=== PATIENT | female | born 1930 | race Caucasian/White ===

== ENCOUNTER → 2016-11-19 | Outpatient (CLI) | payer MEDICARE, OTHER ==
[~2016-11-19] MED LIST: ACET-2267 PO; ATEN50TA PO; BENA10TA2 PO; CITA10TA7 PO; DIPH25CA79 PO; DVL125C PO; FERR-74 PO; FURO40TA4 PO; HYDR-700 PO; IPRA3AMP NEB; LACT20SO2 PO; LEVO500T2 PO; LOPE-134 PO; MELA3TAB PO; MEMA10TA2 PO; MEMA5TAB PO; MULT-166 PO; POTA20TA15 PO; RISP0.2552 PO; RIVA1PAT3 TD; SIMV10TA3 PO; SODI30SP2 NS; TRAZ-28 PO; VIT1TABL26 PO; [UNRECOGNIZED DRUG - CODE] PO
== END ==
PROVIDERS: ATTEND Family Medicine
DX: R19.7 Diarrhea, unspecified (principal)
CPT/HCPCS: 87045; 87046; 87177; 87324; 87328; 87329; 87449; 89055

== ENCOUNTER → 2017-02-23 | Outpatient (CLI) | payer MEDICARE ==
[~2017-02-23] MED LIST changes: -FERR-74 PO; -LEVO500T2 PO; -MEMA10TA2 PO
--- NOTE | 2017-02-23 18:20 | Diagnostic Imaging Report ---
Upright AP and lateral views of the chest. INDICATION: Cough and shortness of breath. FINDINGS: The lungs are hyperinflated. There is interstitial thickening and bilateral effusions of small to moderate size, probably from interstitial pulmonary edema and CHF. The heart size is mildly enlarged. No pneumothorax. Mediastinum and anusha appear unremarkable. IMPRESSION: Findings suggestive of interstitial pulmonary edema with bilateral [id number]-hv-[id number] effusions. Dictated by: Dictated on workstation # [id number]
== END ==
LOC: RAD 15:03
PROVIDERS: ATTEND Family Medicine
DX: R91.8 Other nonspecific abnormal finding of lung field (principal); J90 Pleural effusion, not elsewhere classified
CPT/HCPCS: 71020

== ENCOUNTER 2017-02-25 00:31 | Inpatient (IN) | payer MEDICARE ==
[2017-02-25] VITALS (24 sets, daily range): BP systolic 80–128; BP diastolic 45–91
[~2017-02-25] VITALS: Ht 165.1 cm; Wt 69.4 kg
[2017-02-25] MEDS ORDERED: RT-ALBUTEROL/IPRATROPIUM 3 ML (DUONEB) VIAL ONE (00:33)
[2017-02-25] MEDS ORDERED: RT-ALBUTEROL/IPRATROPIUM 3 ML (DUONEB) VIAL INH ONE (00:45)
[2017-02-25] MEDS ORDERED: methylPREDNISolone 125 MG (Solu-MEDROL) VIAL IVP ONE (01:00)
[2017-02-25] MEDS ORDERED: FUROSEMIDE 40 MG/4 ML INJ (LASIX) IVP ONE (01:00)
--- NOTE | 2017-02-25 01:23 | ED Dyspnea ---
General Stated Complaint: PNEUMONIA Source of Information: Patient (PT IS LIMITED HISTORIAN--HX OF DEMENTIA), [facility] Records History of Present Illness Time Seen by Provider: 00:33 Initial Comments PT ARRIVES VIA EMS FROM [facility] PT HAS BEEN SHORT OF BREATH FOR UNKNOWN LENGTH OF TIME, BUT PT SEEMS TO THINK IT JUST STARTED TONIGHT PT HAS HAD COUGH FOR UNKNOWN LENGTH OF TIME PT DENIES CHEST PAIN PT IS UNAWARE IF SHE HAS HAD FEVER PT WITH SIGNIFICANT EDEMA OF LEGS AND ARMS, BUT DOES NOT KNOW HOW LONG THEY HAVE BEEN THIS WAY, OR IF IT IS NEW OR OLD EMS WAS CALLED BY [place] STAFF FOR O2 SATS IN 50'S, THEY PLACED PT ON O2 AT 3L/NC ( PT DOES NOT NORMALLY WEAR O2 ) O2 SAT WAS 96% WHEN EMS ARRIVED AT SCENE PT HAD OUTPATIENT CXR TODAY AND [place] STAFF STATES IT SHOWED PNEUMONIA AND PT WAS PRESCRIBED ZITHROMAX Z-PACK AND DUO NEB TREATMENTS, BUT RX'S WERE NOT PICKED UP AND PT HAS NOT HAD ANY NEB TREATMENTS PT HAS NOT BEEN TO ER OR ADMITTED HERE BEFORE, AND HAS ONLY BEEN AT [facility] SINCE . NO OLD RECORDS OBTAINABLE, AND ALL PMH IS FROM [place] RECORDS PT IS DNR, PER ASSISTED RECORDS. PCP: DR. PINTO Allergies and Home Medications Allergies Coded Allergies: cephalexin (Verified Allergy, Unknown, 02/25/17) glyburide (Verified Allergy, Unknown, 02/25/17) hydrochlorothiazide (Verified Allergy, Unknown, 02/25/17) lisinopril (Verified Allergy, Unknown, 02/25/17) metformin (Verified Allergy, Unknown, 02/25/17) rofecoxib (Verified Allergy, Unknown, 02/25/17) Constitutional: other (VERY LIMITED ) Respiratory: cough, short of breath Cardiovascular: No chest pain, edema Past Zripzye-Ngldum-Pottuj Hx Patient Social History Smoking Status: Unknown if Ever Smoked Immunizations Up To Date Tetanus Booster (TDap): Unknown Seasonal Allergies Seasonal Allergies: Yes Surgeries History of Surgeries: No (UNKNOWN) Respiratory History of Respiratory Disorde: Yes (DYSPNEA) Cardiovascular History of Cardiac Disorders: Yes Cardiac Disorders: Coronary Artery Disease, High Cholesterol, Hypertension Neurological History of Neurological Disord: Yes Neurological Disorders: Dementia 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 Genitourinary History of Genitourinary Disor: Yes Genitourinary Disorders: Bladder Infection Gastrointestinal History of Gastrointestinal Di: No (UNKNOWN) Musculoskeletal History of Musculoskeletal Dis: Yes (POOR MOBILITY; CHRONIC PAIN ; RIGHT SHOULDER PAIN ; GENERALIZED WEAKNESS) Musculoskeletal Disorders: Arthritis Endocrine History of Endocrine Disorders: Yes Endocrine Disorders: Diabetes, Non-Insulin dep HEENT History of HEENT Disorders: Yes (DYSPHASIA) Psychosocial History of Psychiatric Problem: Yes Behavioral Health Disorders: Sleep Difficulties, Depression Physical Exam Vital Signs Vital Sign - Last 12Hours 02/25/17 00:31 Temp 98.2 Pulse 136 Resp 20 B/P (MAP) 94/37 Pulse Ox 78 O2 Delivery Room Air O2 Flow Rate 3.00 Capillary Refill : General Appearance: Mild Distress HEENT: PERRL/EOMI Neck: Full Range of Motion, Non Tender, Supple Respiratory: Accessory Muscle Use, Decreased Breath Sounds, Rales, Rhonci, Other (DYSPNEIC, AUDIBLE RHONCHI FROM DOORWAY. PT DYSPNEIC AND TALKS IN 2-4 WORD SENTENCES. 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 ) Skin: Normal Color, Warm/Dry Focused Exam Evaluation Lactate Level Laboratory Tests 02/25/17 01:15: Lactic Acid Level 1.22 Lactic Acid Level Laboratory Tests Test 02/25/17 01:15 Lactic Acid Level 1.22 MMOL/L (0.50-2.00) Progress/Results/Core Measures Results/Orders Lab Results Laboratory Tests Test 02/25/17 01:15 02/25/17 02:11 Range/Units White Blood Count 6.8 4.3-11.0 10^3/uL Red Blood Count 3.40 L 4.35-5.85 10^6/uL Hemoglobin 9.7 L 11.5-16.0 G/DL Hematocrit 30 L 35-52 % Mean Corpuscular Volume 87 80-99 FL Mean Corpuscular Hemoglobin 29 25-34 PG Mean Corpuscular Hemoglobin Concent 33 32-36 G/DL Red Cell Distribution Width 15.1 H 10.0-14.5 % Platelet Count 151 130-400 10^3/uL Mean Platelet Volume 10.1 7.4-10.4 FL Neutrophils (%) (Auto) 78 H 42-75 % Lymphocytes (%) (Auto) 7 L 12-44 % Monocytes (%) (Auto) 16 H 0-12 % Eosinophils (%) (Auto) 0 0-10 % Basophils (%) (Auto) 0 0-10 % Neutrophils # (Auto) 5.3 1.8-7.8 X 10^3 Lymphocytes # (Auto) 0.4 L 1.0-4.0 X 10^3 Monocytes # (Auto) 1.1 H 0.0-1.0 X 10^3 Eosinophils # (Auto) 0.0 0.0-0.3 10^3/uL Basophils # (Auto) 0.0 0.0-0.1 10^3/uL Neutrophils % (Manual) 81 % Lymphocytes % (Manual) 4 % Monocytes % (Manual) 8 % Eosinophils % (Manual) 0 % Basophils % (Manual) 0 % Band Neutrophils 7 % Polychromasia SLIGHT Hypochromasia SLIGHT Anisocytosis SLIGHT Prothrombin Time 14.8 H 12.2-14.7 SEC INR Comment 1.2 0.8-1.4 Activated Partial Thromboplast Time 34 24-35 SEC Sodium Level 137 135-145 MMOL/L Potassium Level 3.7 3.6-5.0 MMOL/L Chloride Level 105 98-107 MMOL/L Carbon Dioxide Level 21 21-32 MMOL/L Anion Gap 11 5-14 MMOL/L Blood Urea Nitrogen 49 H 7-18 MG/DL Creatinine 1.81 H 0.60-1.30 MG/DL Estimat Glomerular Filtration Rate 27 BUN/Creatinine Ratio 27 Glucose Level 146 H 70-105 MG/DL Lactic Acid Level 1.22 0.50-2.00 MMOL/L Calcium Level 8.5 8.5-10.1 MG/DL Magnesium Level 1.7 L 1.8-2.4 MG/DL Total Bilirubin 0.6 0.1-1.0 MG/DL Aspartate Amino Transf (AST/SGOT) 38 H 5-34 U/L Alanine Aminotransferase (ALT/SGPT) 52 0-55 U/L Alkaline Phosphatase 102 40-136 U/L Total Creatine Kinase 21 L 29-168 U/L Creatine Kinase MB 1.7 <6.6 NG/ML Troponin I < 0.30 <0.30 NG/ML B-Type Natriuretic Peptide 1369.0 H <100.0 PG/ML Total Protein 5.8 L 6.4-8.2 GM/DL Albumin 3.1 L 3.2-4.5 GM/DL TSH Vega Testing 0.49 0.35-4.94 UIU/ML Valproic Acid (Depakene) Level 21.4 L 50.0-100.0 UG/ML Urine Color YELLOW Urine Clarity CLEAR Urine pH 5 5-9 Urine Specific [place] 1.015 L 1.016-1.022 Urine Protein NEGATIVE NEGATIVE Urine Glucose (UA) NEGATIVE NEGATIVE Urine Ketones NEGATIVE NEGATIVE Urine Nitrite NEGATIVE NEGATIVE Urine Bilirubin NEGATIVE NEGATIVE Urine Urobilinogen NORMAL NORMAL MG/DL Urine Leukocyte Esterase NEGATIVE NEGATIVE Urine RBC (Auto) NEGATIVE NEGATIVE Urine RBC NONE /HPF Urine WBC NONE /HPF Urine Squamous Epithelial Cells RARE /HPF Urine Crystals PRESENT H /LPF Urine Amorphous Sediment FEW ELÍAS URATES H /LPF Urine Bacteria TRACE /HPF Urine Casts PRESENT /LPF Urine Hyaline Casts 5-10 H /LPF Urine Mucus NEGATIVE /LPF Urine Culture Indicated NO Micro Results Microbiology 02/25/17 Influenza Types A,B Antigen (FRANCIS) - Final, Complete My Orders Orders - WENDY CUMMINGS DO Albuterol/Ipra Inhalation Soln (Duoneb I (02/25/17 00:33) Saline Lock/Iv-Start (02/25/17 00:41) Ekg Tracing (02/25/17 00:41) Catheter(Urinary) Insert & Ass 03,15 (02/25/17 00:41) O2 (02/25/17 00:41) Monitor-Rhythm Ecg Trace Only (02/25/17 00:41) Arterial Blood Gas (02/25/17 00:41) BNP (02/25/17 00:41) Cbc With Automated Diff (02/25/17 00:41) Comprehensive Metabolic Panel (02/25/17 00:41) Creatine Kinase (02/25/17 00:41) Creatine Kinase Mb (02/25/17 00:41) Lactic Acid Analyzer (02/25/17 00:41) Magnesium (02/25/17 00:41) Protime With Inr (02/25/17 00:41) Partial Thromboplastin Time (02/25/17 00:41) Thyroid Analyzer (02/25/17 00:41) Troponin I (02/25/17 00:41) Ua Culture If Indicated (02/25/17 00:41) Blood Culture (02/25/17 00:41) Influenza A And B Antigens (02/25/17 00:41) Chest 1 View, Ap/Pa Only (02/25/17 00:41) Albuterol/Ipra Inhalation Soln (Duoneb I (02/25/17 00:45) Rt Request For Service (02/25/17 00:41) Svn Sm Volume Nebulizer Rt-Rfs (02/25/17 00:41) Valproic Acid (02/25/17 00:50) Furosemide Injection (Lasix Injection) (02/25/17 01:00) Methylprednisolone Sod Succ (Solu-Medrol (02/25/17 01:00) Saline Lock/Iv-Start (02/25/17 01:39) Ns Iv 1000 Ml (Sodium Chloride 0.9%) (02/25/17 01:39) Manual Differential (02/25/17 01:15) Levofloxacin Tablet (Levaquin Tablet) (02/25/17 02:26) Medications Given in ED Current Medications Medications Dose Ordered Sig/Jane Route Start Time Stop Time Status Last Admin Dose Admin Albuterol/ Ipratropium 3 ml STK-MED ONCE .ROUTE 02/25/17 00:33 02/25/17 00:41 DC 02/25/17 00:44 3 ML Furosemide 80 mg ONCE ONCE IVP 02/25/17 01:00 02/25/17 01:01 DC 02/25/17 03:17 80 MG Methylprednisolone Sodium Succinate 125 mg ONCE ONCE IVP 02/25/17 01:00 02/25/17 01:01 DC 02/25/17 02:15 125 MG Sodium Chloride 1,000 ml @ 0 mls/hr Q0M ONCE IV 02/25/17 01:39 02/25/17 01:41 DC 02/25/17 01:59 0 MLS/HR Vital Signs/I&O Vital Sign - Last 12Hours 10/02/25/17 02/25/17 00:31 00:31 00:43 Temp 98.2 Pulse 136 Resp 20 B/P (MAP) 94/37 Pulse Ox 78 93 96 O2 Delivery Room Air Nasal Cannula Nasal Cannula O2 Flow Rate 3.00 3.00 Progress Note : Progress Note O2 SAT 78% ON ROOM AIR ON ARRIVAL--UP TO 93-95% ON 3L/NC--REMAINED IN MID 90'S FOR REMAINDER OF ER STAY SYSTOLIC BP DROPPED TO 78, UP TO > 100 WITH SALINE BOLUS. PT HAD INTERMITTENT ATRIAL FIB WITH RVR--RATE IN 130'S, WHEN IN NSR, RATE IN 80' S - 90'S PT HAD NO COMPLAINTS DURING ER STAY ECG Initial ECG Impression Time: 01:49 Initial ECG Rate: 1335 Initial ECG Rhythm: A Fib/Flutter (VS JUNCTIONAL TACHYCARDIA) Initial ECG Impression: Atrial Fibrillation w/RVR Initial ECG Comparisson: No Previous ECG Available EKG : EKG Time: 01:59 Rate: 93 Rhythm: Normal Sinus Comment EKG #3 AT 0245--RATE 131--A FIB/JUNCTIONAL TACHYCARDIA Diagnostic Imaging Comments CXR--CHF, BIBASILAR ATELECTASIS/INFILTRATES--RIGHT> LEFT, PENDING RADIOLOGIST REVIEW Reviewed: Reviewed by Me Departure Communication (Admissions) Progress Notes 0230--SPOKE WITH DR. PINTO, ACCEPTS PT FOR ADMIT. WILL CONSULT CARDIOLOGY IN AM Impression Impression: Primary Impression: CHF (congestive heart failure) Additional Impressions: POSSIBLE PNEUMONIA Hypoxia INTERMITTENT ATRIAL FIBRILLATION WITH RVR Anasarca Hypotension RENAL INSUFFICIENCY/FAILURE Anemia Dementia Disposition: 09 ADMITTED INPATIENT Condition: Improved Admissions Decision to Admit Reason: Admit from ER (General) Decision to Admit/Date: Feb 25, 2017 Time/Decision to Admit Time: 02:30 Departure-Patient Inst. Referrals: PEE PINTO DO (PCP/Family) Primary Care Physician WENDY CUMMINGS DO Feb 25, 2017 01:23
[2017-02-25] MEDS ORDERED: NS IV 1000 ML 1,000 ML IV ONE (01:39)
[2017-02-25 01:42] LABS: BASOPHILS % (AUTO) 0 % (0-10); EOSINOPHILS % (AUTO) 0 % (0-10); LYMPHOCYTES # (AUTO) 0.4 X 10^3 (1.0-4.0); LYMPHOCYTES % (AUTO) 7 % (12-44); MEAN CORPUSCULAR HEMOGLOBIN 29 PG (25-34); MEAN CORPUSCULAR HGB CONC 33 G/DL (32-36); MEAN CORPUSCULAR VOLUME 87 FL (80-99); MEAN PLATELET VOLUME 10.1 FL (7.4-10.4); MONOCYTES # (AUTO) 1.1 X 10^3 (0.0-1.0); MONOCYTES % (AUTO) 16 % (0-12); NEUTROPHILS # (AUTO) 5.3 X 10^3 (1.8-7.8); NEUTROPHILS % (AUTO) 78 % (42-75); PLATELET COUNT 151 10^3/uL (130-400); RED CELL DISTRIBUTION WIDTH 15.1 % (10.0-14.5); WHITE BLOOD COUNT 6.8 10^3/uL (4.3-11.0)
[2017-02-25 01:54] LABS: INR 1.2 (0.8-1.4); PROTHROMBIN TIME PATIENT 14.8 SEC (12.2-14.7)
[2017-02-25 02:04] LABS: ANISOCYTOSIS SLIGHT; BAND NEUTROPHILS 7 %; BASOPHILS % (MANUAL) 0 %; EOSINOPHILS % (MANUAL) 0 %; HYPOCHROMASIA SLIGHT; LYMPHOCYTES % (MANUAL) 4 %; NEUTROPHILS % (MANUAL) 81 %; POLYCHROMASIA SLIGHT
[2017-02-25 02:07] LABS: ALANINE AMINOTRANSFERASE 52 U/L (0-55); ALBUMIN 3.1 GM/DL (3.2-4.5); ANION GAP 11 MMOL/L (5-14); ASPARTATE AMINO TRANSFERASE 38 U/L (5-34); BILIRUBIN,TOTAL 0.6 MG/DL (0.1-1.0); BLOOD UREA NITROGEN 49 MG/DL (7-18); BUN/CREATININE RATIO 27; CALCIUM 8.5 MG/DL (8.5-10.1); CARBON DIOXIDE 21 MMOL/L (21-32); CHLORIDE 105 MMOL/L (98-107); CREATINE KINASE 21 U/L (29-168); CREATININE SERUM 1.81 MG/DL (0.60-1.30); GFR ESTIMATED 27; GLUCOSE 146 MG/DL (70-105); MAGNESIUM 1.7 MG/DL (1.8-2.4); POTASSIUM 3.7 MMOL/L (3.6-5.0); SODIUM 137 MMOL/L (135-145); TOTAL PROTEIN 5.8 GM/DL (6.4-8.2)
[2017-02-25 02:26] LABS: TROPONIN I < 0.30 NG/ML (<0.30); VALPROIC ACID 21.4 UG/ML (50.0-100.0)
[2017-02-25] MEDS ORDERED: LEVOFLOXACIN 500 MG TAB (LEVAQUIN) PO STA (02:26)
[2017-02-25] MEDS ORDERED: LEVOFLOXACIN 750 MG/150 ML IV 150 ML IV STA (02:36)
[2017-02-25 02:37] LABS: BILIRUBIN,URINE NEGATIVE (NEGATIVE); KETONES,URINE NEGATIVE (NEGATIVE); LEUKOCYTE ESTERASE ,URINE NEGATIVE (NEGATIVE); NITRITE,URINE NEGATIVE (NEGATIVE); PH,URINE 5 (5-9); PROTEIN,URINE NEGATIVE (NEGATIVE); UROBILINOGEN,URINE NORMAL (NORMAL)
[2017-02-25 02:45] LABS: SQUAMOUS EPITHELIAL CELL,UR RARE /HPF
[2017-02-25] MEDS ORDERED: FUROSEMIDE 40 MG/4 ML INJ (LASIX) ONE (03:05)
[2017-02-25] MEDS ORDERED: CATHETER FLUSH 10 ML SYR IV PRN (05:45)
[2017-02-25] MEDS: CATHETER FLUSH 10 ML SYR IV SCH ×3 (06:00→22:00)
--- NOTE | 2017-02-25 06:26 | Diagnostic Imaging Report ---
INDICATION: Shortness of air. COMPARISON: 02/23/2017. FINDINGS: Small bilateral pleural effusions are unchanged. Patchy basilar airspace opacities are also similar. Heart is enlarged. Central vascular indistinctness is noted. No pneumothorax. IMPRESSION: 1. Imaging features are most suggestive of congestive heart failure with central vascular congestion, probable early pulmonary edema and small bilateral pleural effusions. Dictated by: Dictated on workstation # [id number]
--- NOTE | 2017-02-25 06:47 | Pulmonary Consultation ---
History of Present Illness History of Present Illness Date of Consultation 02/25/17 06:39 Time Seen by Provider: 06:39 Date of Admission History of Present Illness 87yo presented to ED from [facility] secondary to worsening SOB. Pt was dx with PNA as an out patient and was placed on Azithromycin. Pt has had a nonproductive cough and no fevers. Pt has been hypotensive in the ICU. Denies CP. PT has had pitting edema in the LE bilaterally. PT got 80mg of lasix in the ED prior to becoming hypotensive. SHe has had 2 liters of IVF. I am consulted for Pulmonary management. Allergies and Home Medications Allergies Coded Allergies: cephalexin (Verified Allergy, Unknown, 02/25/17) glyburide (Verified Allergy, Unknown, 02/25/17) hydrochlorothiazide (Verified Allergy, Unknown, 02/25/17) lisinopril (Verified Allergy, Unknown, 02/25/17) metformin (Verified Allergy, Unknown, 02/25/17) rofecoxib (Verified Allergy, Unknown, 02/25/17) Past Iornqpr-Ovzhuc-Eicwoc Hx Patient Social History Alcohol Use: Denies Use Recreational Drug Use: No Smoking Status: Unknown if Ever Smoked Recent Infectious Disease Expo: No Recent Hopitalizations: No Physical Abuse: No Sexual Abuse: No Mistreated: No Fear: No Immunizations Up To Date Tetanus Booster (TDap): Unknown Seasonal Allergies Seasonal Allergies: Yes Surgeries History of Surgeries: No (UNKNOWN) Respiratory History of Respiratory Disorde: Yes (DYSPNEA) Cardiovascular History of Cardiac Disorders: Yes Cardiac Disorders: Coronary Artery Disease, High Cholesterol, Hypertension Neurological History of Neurological Disord: Yes Neurological Disorders: Dementia 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 Genitourinary History of Genitourinary Disor: Yes Genitourinary Disorders: Bladder Infection Gastrointestinal History of Gastrointestinal Di: No (UNKNOWN) Musculoskeletal History of Musculoskeletal Dis: Yes (POOR MOBILITY; CHRONIC PAIN ; RIGHT SHOULDER PAIN ; GENERALIZED WEAKNESS) Musculoskeletal Disorders: Arthritis Endocrine History of Endocrine Disorders: Yes Endocrine Disorders: Diabetes, Non-Insulin dep HEENT History of HEENT Disorders: Yes (DYSPHASIA) Cancer History of Cancer: No Psychosocial History of Psychiatric Problem: Yes Behavioral Health Disorders: Sleep Difficulties, Depression Suicide Risk Score: 0 Integumentary History of Skin or Integumenta: No Review of Systems Time Seen by Provider: 06:51 Constitutional: Weakness, Malaise, No: Fever, Chills, Sweats, Other Respiratory: Shortness of breath Gastrointestinal: Nausea Neurological: Weakness, Confusion Exam Exam Vital Signs Date Time Temp Pulse Resp B/P (MAP) Pulse Ox O2 Delivery O2 Flow Rate FiO2 02/25/17 03:53 130 20 100 Nasal Cannula 3.00 02/25/17 00:43 96 Nasal Cannula 3.00 02/25/17 00:31 93 Nasal Cannula 3.00 02/25/17 00:31 98.2 136 20 94/37 78 Room Air General Appearance: Mild Distress HEENT: PERRL/EOMI Neck: Full Range of Motion, Non Tender, Supple Respiratory: Accessory Muscle Use, Decreased Breath Sounds, Rales, Rhonci, Other (DYSPNEIC, AUDIBLE RHONCHI FROM DOORWAY. PT DYSPNEIC AND TALKS IN 2-4 WORD SENTENCES. 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 ) Skin: Normal Color, Warm/Dry Results Lab Laboratory Tests 02/25/17 01:15 Assessment/Plan Assessment/Plan -Hypotensive - probably secondary to intravascular depletion -Check echocardiogram -gentle hydration -Hold lasix Prerenal failure - acute -secondary to intravascular dehydration -gentle hydration Pneumonia -continue Levaquin for now and await cultures Atelectasis -EasyPAP QID -IS Debility/dementia 255 FAYE BELTRAN DO Feb 25, 2017 06:47
[2017-02-25 06:55] LABS: BASOPHILS % (AUTO) 0 % (0-10); EOSINOPHILS # (AUTO) 0.2 10^3/uL (0.0-0.3); EOSINOPHILS % (AUTO) 5 % (0-10); LYMPHOCYTES # (AUTO) 0.2 X 10^3 (1.0-4.0); LYMPHOCYTES % (AUTO) 5 % (12-44); MEAN CORPUSCULAR HEMOGLOBIN 29 PG (25-34); MEAN CORPUSCULAR HGB CONC 33 G/DL (32-36); MEAN CORPUSCULAR VOLUME 88 FL (80-99); MEAN PLATELET VOLUME 10.6 FL (7.4-10.4); MONOCYTES # (AUTO) 0.3 X 10^3 (0.0-1.0); MONOCYTES % (AUTO) 8 % (0-12); NEUTROPHILS # (AUTO) 3.1 X 10^3 (1.8-7.8); NEUTROPHILS % (AUTO) 83 % (42-75); PLATELET COUNT 128 10^3/uL (130-400); WHITE BLOOD COUNT 3.8 10^3/uL (4.3-11.0)
[2017-02-25] MEDS ORDERED: FUROSEMIDE 40 MG/4 ML INJ (LASIX) IV SCH (07:00)
[2017-02-25 07:19] LABS: ALANINE AMINOTRANSFERASE 45 U/L (0-55); ALBUMIN 2.8 GM/DL (3.2-4.5); ANION GAP 11 MMOL/L (5-14); ASPARTATE AMINO TRANSFERASE 34 U/L (5-34); BILIRUBIN,TOTAL 0.4 MG/DL (0.1-1.0); BLOOD UREA NITROGEN 48 MG/DL (7-18); BUN/CREATININE RATIO 28; CALCIUM 8.1 MG/DL (8.5-10.1); CARBON DIOXIDE 19 MMOL/L (21-32); CHLORIDE 108 MMOL/L (98-107); CREATININE SERUM 1.73 MG/DL (0.60-1.30); GFR ESTIMATED 28; GLUCOSE 166 MG/DL (70-105); MAGNESIUM 1.6 MG/DL (1.8-2.4); PHOSPHORUS 3.7 MG/DL (2.3-4.7); POTASSIUM 4.2 MMOL/L (3.6-5.0); SODIUM 138 MMOL/L (135-145); TOTAL PROTEIN 5.4 GM/DL (6.4-8.2)
[2017-02-25] MEDS: RT-ALBUTEROL/IPRATROPIUM 3 ML (DUONEB) VIAL INH SCH ×4 (07:19→18:39)
--- NOTE | 2017-02-25 07:44 | History & Physicial ---
History of Present Illness History of Present Illness Reason for visit/HPI patient resident of [facility]. Patient had episodes of shortness of breath, swelling of legs, and pulse ox went down to 50. Patient sent by EMS to the emergency room. Patient has an elevated BNP and chest x-ray shows some pulmonary edema. Patient hypotensive. Patient has prerenal failure. Patient admitted inpatient for hospital. 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 Patient states her heart goes irregular. Surgeries tubal , appendectomy and tonsils. Family history diabetes in family Date of Admission Feb 25, 2017 at 02:30 Time Seen by Provider: 07:40 I consulted on this patient on 02/25/17 07:38 Attending Physician Grant Pinto DO Admitting Physician Grant Pinto DO Consult Allergies and Home Medications Allergies Coded Allergies: cephalexin (Verified Allergy, Unknown, 02/25/17) glyburide (Verified Allergy, Unknown, 02/25/17) hydrochlorothiazide (Verified Allergy, Unknown, 02/25/17) lisinopril (Verified Allergy, Unknown, 02/25/17) metformin (Verified Allergy, Unknown, 02/25/17) rofecoxib (Verified Allergy, Unknown, 02/25/17) Past Cilibtp-Musuzo-Ucesid Hx Patient Social History Alcohol Use: Denies Use Recreational Drug Use: No Smoking Status: Unknown if Ever Smoked Recent Hopitalizations: No Recent Infectious Disease Expo: No Immunizations Up To Date Tetanus Booster (TDap): Unknown Seasonal Allergies Seasonal Allergies: Yes Surgeries Yes Appendectomy, Tonsillectomy, Tubal Ligation Respiratory Yes (DYSPNEA) Cardiovascular Yes Coronary Artery Disease, High Cholesterol, Hypertension Neurological Yes Dementia 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 Genitourinary Yes Bladder Infection Gastrointestinal No (UNKNOWN) Musculoskeletal Yes (POOR MOBILITY; CHRONIC PAIN ; RIGHT SHOULDER PAIN ; GENERALIZED WEAKNESS) Arthritis Endocrine History of Endocrine Disorders: Yes Endocrine Disorders: Diabetes, Non-Insulin dep HEENT History of HEENT Disorders: Yes (DYSPHASIA) Cancer No Psychosocial History of Psychiatric Problem: Yes Behavioral Health Disorders: Sleep Difficulties, Depression Integumentary History of Skin or Integumenta: No Constitutional: weakness Respiratory: short of breath Cardiovascular: other (irregular heart) Gastrointestinal: no symptoms reported Genitourinary: no symptoms reported : No Physical Exam Vital Signs Vital Sign - Last 12Hours 02/25/17 00:31 Temp 98.2 Pulse 136 Resp 20 B/P (MAP) 94/37 Pulse Ox 78 O2 Delivery Room Air O2 Flow Rate 3.00 Capillary Refill : Less Than 3 Seconds General Appearance: No Apparent Distress Eyes: Bilateral Eye Normal Inspection HEENT: Normal ENT Inspection Neck: Normal Inspection, Non Tender Respiratory: Decreased Breath Sounds Cardiovascular: Tachycardia Gastrointestinal: Non Tender, Soft Assessment/Plan Assessment and Plan dyspnea. Hypotension. Prerenal failure. Debility. Dementia. Elevated BNP Problems: GRANT PINTO DO Feb 25, 2017 07:44
[2017-02-25] MEDS: NS IV 1000 ML 1,000 ML IV SCH ×2 (07:47→23:07)
--- NOTE | 2017-02-25 08:22 | Consultation-Cardiology ---
HPI-Cardiology Cardiology Consultation Date of Consultation 02/25/17 Date of Admission Time Seen by Provider: 08:14 Indication: shortness of breath HPI 87 years old lady suffering from dementia, unable to provide full history, brought by EMS from correction due to increasing shortness of breath, noted to have elevated BNP and mild pulmonary edema. She has been off cough. No fever or chills. Has been having pedal edema. No syncope or near syncopal episode there is questionable history of atherosclerotic heart disease. I do not have any previous history Home Medications & Allergies Allergies: Coded Allergies: cephalexin (Verified Allergy, Unknown, 02/25/17) glyburide (Verified Allergy, Unknown, 02/25/17) hydrochlorothiazide (Verified Allergy, Unknown, 02/25/17) lisinopril (Verified Allergy, Unknown, 02/25/17) metformin (Verified Allergy, Unknown, 02/25/17) rofecoxib (Verified Allergy, Unknown, 02/25/17) Home Medication List Reviewed: Yes [id number] Hx Patient Social History Alcohol Use: Denies Use Recreational Drug Use: No Smoking Status: Unknown if Ever Smoked Recent Infectious Disease Expo: No Recent Hopitalizations: No Immunizations Up To Date Tetanus Booster (TDap): Unknown Past Medical History unable to provide past medical history Family Medical History Family Medical Hx unable to provide family history Constitutional: see HPI, malaise, weakness EENTM: see HPI, no symptoms reported Respiratory: see HPI, cough, dyspnea on exertion, orthopnea, short of breath Cardiovascular: see HPI, No chest pain, edema, No Hx of Intervention, No palpitations, No syncope, No vascular heart diseas, No other Gastrointestinal: no symptoms reported, see HPI Genitourinary: no symptoms reported, see HPI Musculoskeletal: no symptoms reported, see HPI Skin: no symptoms reported, see HPI Psychiatric/Neurological: No Symptoms Reported, See HPI Reviewed Test Results Reviewed Test Results Lab Laboratory Tests Test 02/25/17 01:15 02/25/17 02:11 02/25/17 06:45 Range/Units White Blood Count 6.8 3.8 L 4.3-11.0 10^3/uL Red Blood Count 3.40 L 3.20 L 4.35-5.85 10^6/uL Hemoglobin 9.7 L 9.2 L 11.5-16.0 G/DL Hematocrit 30 L 28 L 35-52 % Mean Corpuscular Volume 87 88 80-99 FL Mean Corpuscular Hemoglobin 29 29 25-34 PG Mean Corpuscular Hemoglobin Concent 33 33 32-36 G/DL Red Cell Distribution Width 15.1 H 15.0 H 10.0-14.5 % Platelet Count 151 128 L 130-400 10^3/uL Mean Platelet Volume 10.1 10.6 H 7.4-10.4 FL Neutrophils (%) (Auto) 78 H 83 H 42-75 % Lymphocytes (%) (Auto) 7 L 5 L 12-44 % Monocytes (%) (Auto) 16 H 8 0-12 % Eosinophils (%) (Auto) 0 5 0-10 % Basophils (%) (Auto) 0 0 0-10 % Neutrophils # (Auto) 5.3 3.1 1.8-7.8 X 10^3 Lymphocytes # (Auto) 0.4 L 0.2 L 1.0-4.0 X 10^3 Monocytes # (Auto) 1.1 H 0.3 0.0-1.0 X 10^3 Eosinophils # (Auto) 0.0 0.2 0.0-0.3 10^3/uL Basophils # (Auto) 0.0 0.0 0.0-0.1 10^3/uL Neutrophils % (Manual) 81 % Lymphocytes % (Manual) 4 % Monocytes % (Manual) 8 % Eosinophils % (Manual) 0 % Basophils % (Manual) 0 % Band Neutrophils 7 % Polychromasia SLIGHT Hypochromasia SLIGHT Anisocytosis SLIGHT Prothrombin Time 14.8 H 12.2-14.7 SEC INR Comment 1.2 0.8-1.4 Activated Partial Thromboplast Time 34 24-35 SEC Sodium Level 137 138 135-145 MMOL/L Potassium Level 3.7 4.2 3.6-5.0 MMOL/L Chloride Level 105 108 H 98-107 MMOL/L Carbon Dioxide Level 21 19 L 21-32 MMOL/L Anion Gap 11 11 5-14 MMOL/L Blood Urea Nitrogen 49 H 48 H 7-18 MG/DL Creatinine 1.81 H 1.73 H 0.60-1.30 MG/DL Estimat Glomerular Filtration Rate 27 28 BUN/Creatinine Ratio 27 28 Glucose Level 146 H 166 H 70-105 MG/DL Lactic Acid Level 1.22 0.50-2.00 MMOL/L Calcium Level 8.5 8.1 L 8.5-10.1 MG/DL Magnesium Level 1.7 L 1.6 L 1.8-2.4 MG/DL Total Bilirubin 0.6 0.4 0.1-1.0 MG/DL Aspartate Amino Transf (AST/SGOT) 38 H 34 5-34 U/L Alanine Aminotransferase (ALT/SGPT) 52 45 0-55 U/L Alkaline Phosphatase 102 90 40-136 U/L Total Creatine Kinase 21 L 29-168 U/L Creatine Kinase MB 1.7 <6.6 NG/ML Troponin I < 0.30 < 0.30 <0.30 NG/ML B-Type Natriuretic Peptide 1369.0 H <100.0 PG/ML Total Protein 5.8 L 5.4 L 6.4-8.2 GM/DL Albumin 3.1 L 2.8 L 3.2-4.5 GM/DL TSH [place] Testing 0.49 0.35-4.94 UIU/ML Valproic Acid (Depakene) Level 21.4 L 50.0-100.0 UG/ML Urine Color YELLOW Urine Clarity CLEAR Urine pH 5 5-9 Urine Specific [place] 1.015 L 1.016-1.022 Urine Protein NEGATIVE NEGATIVE Urine Glucose (UA) NEGATIVE NEGATIVE Urine Ketones NEGATIVE NEGATIVE Urine Nitrite NEGATIVE NEGATIVE Urine Bilirubin NEGATIVE NEGATIVE Urine Urobilinogen NORMAL NORMAL MG/DL Urine Leukocyte Esterase NEGATIVE NEGATIVE Urine RBC (Auto) NEGATIVE NEGATIVE Urine RBC NONE /HPF Urine WBC NONE /HPF Urine Squamous Epithelial Cells RARE /HPF Urine Crystals PRESENT H /LPF Urine Amorphous Sediment FEW ELÍAS URATES H /LPF Urine Bacteria TRACE /HPF Urine Casts PRESENT /LPF Urine Hyaline Casts 5-10 H /LPF Urine Mucus NEGATIVE /LPF Urine Culture Indicated NO Phosphorus Level 3.7 2.3-4.7 MG/DL Physical Exam Vital Signs Vital Sign - Last 12Hours 02/25/17 00:31 Temp 98.2 Pulse 136 Resp 20 B/P (MAP) 94/37 Pulse Ox 78 O2 Delivery Room Air O2 Flow Rate 3.00 Capillary Refill : Less Than 3 Seconds General Appearance: WD/WN, Mild Distress Eyes: Bilateral Eye Normal Inspection, Bilateral Eye PERRL, Bilateral Eye EOMI HEENT: PERRL/EOMI, TMs Normal, Normal ENT Inspection, Pharynx Normal Neck: Full Range of Motion, Normal Inspection, Non Tender, Supple, Carotid Bruit, JVD Respiratory: Chest Non Tender, No Accessory Muscle Use, No Respiratory Distress , Crackles, Decreased Breath Sounds Cardiovascular: No Edema, No JVD, Normal Peripheral Pulses, Systolic Murmur, Gallop/S3 Gastrointestinal: Normal Bowel Sounds, No Organomegaly, No Pulsatile Mass, Non Tender, Soft Back: Normal Inspection, No CVA Tenderness, No Vertebral Tenderness Extremity: Normal Capillary Refill, Normal Inspection, Normal Range of Motion, Non Tender, No Calf Tenderness, No Pedal Edema, Pedal Edema Neurologic/Psychiatric: Alert, Oriented x3, No Motor/Sensory Deficits, Normal Mood/Affect Skin: Normal Color, Warm/Dry Lymphatic: No Adenopathy A/P-Cardiology Admission Diagnosis Congestive heart failure Hypertension Dimensions Hypothyroidism Assessment/Plan Congestive heart failure, acute ventricular diastolic dysfunction, normal systolic function, unknown etiology, no previous history. hyperdynamic left ventricle. Borderline hypotension, intravascular volume depletion. Acute renal insufficiency, continue to monitor renal function closely. History of hypothyroidism. Maintained on thyroid replacement. Dementia Questionable history of atherosclerotic heart disease Patient is poor historian, no family members available, no contact information for family members, has not been in this hospital previously. YEHUDA ARRINGTON MD Feb 25, 2017 08:22
[2017-02-25] MEDS: MAGNESIUM 1 GM/100 ML IVPB 100 ML IV SCH ×2 (09:51→11:39)
[2017-02-25] MEDS: FAMOTIDINE 20MG/2ML IV (PEPCID) IVP SCH (09:51)
[2017-02-25] MEDS: methylPREDNISolone 125 MG (Solu-MEDROL) VIAL IV SCH ×2 (09:51→14:33)
[2017-02-25] MEDS: ENOXAPARIN 30 MG/0.3 ML (LOVENOX) SYR SC SCH (09:52)
[2017-02-25] MEDS ORDERED: INFLUENZA TRIvalent 2017-2018 0.5 ML/45 MCG SYR IM ONE (10:15)
[2017-02-25] MEDS ORDERED: RIVA1PAT3 TD (10:23)
[2017-02-25] MEDS ORDERED: DIPH25CA79 PO (10:23)
[2017-02-25] MEDS ORDERED: HYDR-700 PO (10:23)
[2017-02-25] MEDS ORDERED: BENA10TA2 PO (10:23)
[2017-02-25] MEDS ORDERED: CITA10TA7 PO (10:23)
[2017-02-25] MEDS ORDERED: DVL125C PO (10:23)
[2017-02-25] MEDS ORDERED: IPRA3AMP NEB (10:23)
[2017-02-25] MEDS ORDERED: ATEN50TA PO (10:23)
[2017-02-25] MEDS ORDERED: FURO40TA4 PO ×2 (10:23→10:24)
[2017-02-25] MEDS ORDERED: LACT20SO2 PO (10:24)
[2017-02-25] MEDS ORDERED: MULT-166 PO (10:24)
[2017-02-25] MEDS ORDERED: LOPE-134 PO (10:24)
[2017-02-25] MEDS ORDERED: MEMA5TAB PO (10:24)
[2017-02-25] MEDS ORDERED: MELA3TAB PO (10:24)
[2017-02-25] MEDS ORDERED: VIT1TABL26 PO (10:29)
[2017-02-25] MEDS ORDERED: POTA20TA15 PO (10:29)
[2017-02-25] MEDS ORDERED: ACET-2267 PO (10:29)
[2017-02-25] MEDS ORDERED: TRAZ-28 PO (10:29)
[2017-02-25] MEDS ORDERED: SODI30SP2 NS (10:29)
[2017-02-25] MEDS ORDERED: [UNRECOGNIZED DRUG - CODE] PO (10:29)
[2017-02-25] MEDS ORDERED: SIMV10TA3 PO (10:29)
[2017-02-25] MEDS ORDERED: RISP0.2552 PO (10:32)
--- NOTE | 2017-02-25 11:32 | Diagnostic Imaging Report ---
INDICATION: Pulmonary edema, shortness of air, cough, and congestive heart failure. COMPARISON: Study compared with an exam 02/20/2017. FINDINGS: Enlargement of the cardiac silhouette and prominence of the central pulmonary vascularity is not convincingly changed. Elizabeth B-lines presumed owing to interstitial edema show reduction. Small amounts of pleural fluid not convincingly changed. IMPRESSION: Likely decreased interstitial edema. Remaining sequelae of failure not appreciably changed. Dictated by: Dictated on workstation # [id number]
[2017-02-25] MEDS: inSUlin (REGULAR) HUMAN 1 UNIT/0.01 ML (CHARGE PER UNIT) SC SCH (21:00)
[2017-02-26] VITALS (15 sets, daily range): BP systolic 126–171; BP diastolic 59–95
[2017-02-26 05:31] LABS: BASOPHILS % (AUTO) 0 % (0-10); EOSINOPHILS % (AUTO) 0 % (0-10); LYMPHOCYTES # (AUTO) 0.4 X 10^3 (1.0-4.0); LYMPHOCYTES % (AUTO) 10 % (12-44); MEAN CORPUSCULAR HEMOGLOBIN 28 PG (25-34); MEAN CORPUSCULAR HGB CONC 33 G/DL (32-36); MEAN CORPUSCULAR VOLUME 86 FL (80-99); MEAN PLATELET VOLUME 10.2 FL (7.4-10.4); MONOCYTES # (AUTO) 0.2 X 10^3 (0.0-1.0); MONOCYTES % (AUTO) 6 % (0-12); NEUTROPHILS # (AUTO) 3.1 X 10^3 (1.8-7.8); NEUTROPHILS % (AUTO) 85 % (42-75); PLATELET COUNT 150 10^3/uL (130-400); RED BLOOD COUNT 2.93 10^6/uL (4.35-5.85); RED CELL DISTRIBUTION WIDTH 14.5 % (10.0-14.5); WHITE BLOOD COUNT 3.7 10^3/uL (4.3-11.0)
[2017-02-26] MEDS ORDERED: POTASSIUM CL 10MEQ/50ML IVPB 50 ML IV SCH (06:00)
[2017-02-26] MEDS: inSUlin (REGULAR) HUMAN 1 UNIT/0.01 ML (CHARGE PER UNIT) SC SCH ×2 (06:00→11:52)
[2017-02-26] MEDS ORDERED: MAGNESIUM 1 GM/100 ML IVPB 100 ML IV SCH (06:00)
[2017-02-26] MEDS: CATHETER FLUSH 10 ML SYR IV SCH (06:00)
[2017-02-26] MEDS ORDERED: KCL 20 MEQ TAB (K-DUR) PO SCH (06:00)
[2017-02-26 06:07] LABS: ALBUMIN 2.7 GM/DL (3.2-4.5); BILIRUBIN,TOTAL 0.3 MG/DL (0.1-1.0); CREATININE SERUM 1.9 MG/DL (0.60-1.30); MAGNESIUM 2.1 MG/DL (1.8-2.4); PHOSPHORUS 3.7 MG/DL (2.3-4.7); POTASSIUM 3.6 MMOL/L (3.6-5.0); TOTAL PROTEIN 5.2 GM/DL (6.4-8.2)
[2017-02-26] MEDS ORDERED: KCL 20 MEQ TAB (K-DUR) PO ONE (07:15)
[2017-02-26] MEDS: RT-ALBUTEROL/IPRATROPIUM 3 ML (DUONEB) VIAL INH SCH ×4 (07:27→18:39)
--- NOTE | 2017-02-26 10:55 | Cardiology Progress Note ---
Subjective Date Seen by Provider: Feb 26, 2017 Time Seen by Provider: 10:53 Subjective/Events-last exam patient is laying down in bed, complaining of generalized weakness, cold, no chest pain, breathing is better. Review of Systems General: No Chills, No Night Sweats, Fatigue, Malaise, No Appetite, No Other HEENT: No Head Aches, No Visual Changes, No Eye Pain, No Ear Pain, No Dysphasia , No Sinus Congestion, No Post Nasal Drip, No Sore Throat, No Other Pulmonary: Dyspnea, No Cough, No Pleuritic Chest Pain, No Other Cardiovascular: Edema, No: Chest Pain, Palpitations, Orthopnea, Paroxysmal Noc. Dyspnea, Lt Headedness, Other Objective-Cardiology Exam Last Set of Vital Signs Vital Signs 02/26/17 02/26/17 09:00 10:36 Pulse 96 Resp 17 B/P (MAP) 166/82 Pulse Ox 96 O2 Delivery Nasal Cannula O2 Flow Rate 3.00 Capillary Refill : Less Than 3 Seconds I&O Intake and Output 02/27/17 00:00 Intake Total 100 ml Output Total 300 ml Balance -200 ml Intake Oral 100 ml Output Urine Total 300 ml General: Alert, Cooperative, Mild Distress HEENT: Atraumatic, PERRLA Neck: Supple, No JVD, No Thyromegaly Lungs: Normal Air Movement, Other (bilateral rhonchi) Heart: Regular Rate, Normal S1, Normal S2, Gallops Abdomen: Normal Bowel Sounds, Soft, No Tenderness, No Hepatosplenomegaly, No Masses Extremities: No Clubbing, No Cyanosis, Normal Pulses, No Tenderness/Swelling Skin: No Significant Lesion Neuro: Normal Speech, Normal Tone, Sensation Intact Psych/Mental Status: Mood NL Results Lab Laboratory Tests 02/26/17 05:02 A/P-Cardiology Admission Diagnosis Congestive heart failure Hypertension Dimensions Hypothyroidism Assessment/Plan Congestive heart failure, acute ventricular diastolic dysfunction, normal systolic function, unknown etiology, no previous history. hyperdynamic left ventricle. currently hypertensive. I will start low-dose beta blockers and LACI inhibitor and monitor her tolerance. Borderline hypotension, intravascular volume depletion, better at this time, blood pressure is moderately elevated. Acute renal insufficiency, slightly worse today. Monitor renal function. History of hypothyroidism. Maintained on thyroid replacement. Dementia Questionable history of atherosclerotic heart disease Patient is poor historian, no family members available, no contact information for family members, has not been in this hospital previously. Clinical Quality Measures DVT/VTE Risk/Contraindication: Risk Factor Score Per Nursin RFS Level Per Nursing on Admit: 4+=Very High YEHUDA ARRINGTON MD Feb 26, 2017 10:55
[2017-02-26] MEDS: ENOXAPARIN 30 MG/0.3 ML (LOVENOX) SYR SC SCH (11:16)
[2017-02-26] MEDS: FAMOTIDINE 20MG/2ML IV (PEPCID) IVP SCH (11:17)
[2017-02-26] MEDS: NS IV 1000 ML 1,000 ML IV SCH (11:17)
[2017-02-26] MEDS: LOSARTAN 25 MG (COZAAR) TAB PO SCH (11:53)
--- NOTE | 2017-02-26 12:09 | Progress Note-Hospitalist ---
Standard Progress Note Progress Notes/Assess & Plan Date Seen 02/26/17 Time Seen by Provider: 11:05 Assess & Plan/Chief Complaint The patient is an 87-year-old white female patient of Dr. Brenner. She is a senior care patient and is clearly quite demented. There is no real past history to be obtained due to her mental state and the fact that she has not been here before. It is not clear how long she has been troubled by shortness of breath and a cough however it is not an acute situation. Physical exam: The patient is a plump elderly female. She does not know where she is or why. She repeatedly calls out for her who is . Lungs show relatively distant breath sounds and some dullness in the bases. CV shows no murmur and is rate controlled. She is lying on her bed in an angular orientation with feet hanging out the sides. She has torn out her IV. She also cries out that she needs to go to the restroom despite the fact that it is revealed repeatedly that she has a Baxter catheter. Her ankles show no pedal edema. Chest x-ray suggests reduction in the amount of edema apparent as compared to admission. Impression: Congestive heart failure. 2.severe dementia. Plan: Transfer to [facility] and switch patient to oral medications. She may require Haldol for her semi-agitated state. Labs Laboratory Tests 02/25/17 01:15 02/25/17 06:45 02/26/17 05:02 MARA BARRERA MD Feb 26, 2017 12:09
[2017-02-26] MEDS ORDERED: LACTULOSE SYRUP 10GM/15ML (ENULOSE) 30ML UDC PO PRN (12:15)
[2017-02-26] MEDS ORDERED: ATENOLOL 50 MG (TENORMIN) TAB PO SCH (12:20)
[2017-02-26] MEDS ORDERED: FUROSEMIDE 40 MG (LASIX) TAB PO SCH (12:22)
[2017-02-26] MEDS ORDERED: HALOPERIDOL 0.5 MG (HALDOL) TAB PO NR (12:39)
--- NOTE | 2017-02-26 12:55 | Diagnostic Imaging Report ---
INDICATION: Shortness of air, cough. TECHNIQUE: Single view chest 5:17 AM. CORRELATION STUDY: 02/25/2017 FINDINGS: Cardiac enlargement with prominent mediastinum are present. This may be somewhat accentuated by less depth of inspiration. Vascular congestion is present. There is increasing infiltrate and effusion of the right lung base. Probable left pleural effusion with left lung generally stable. Chronic change bilateral shoulders particularly on the right. IMPRESSION: 1. Adverse change about the right lung base with increasing infiltrate and effusion present. 2. Cardiac enlargement with presence of vascular congestion. Dictated by: Dictated on workstation # [id number]
[2017-02-26] MEDS ORDERED: RT-ALBUTEROL/IPRATROPIUM 3 ML (DUONEB) VIAL IH SCH (13:00)
[2017-02-26] MEDS: MULTIVIT W/MINERALS TAB (THERAGRAN M) PO SCH (13:41)
[2017-02-26] MEDS: KCL 20 MEQ TAB (K-DUR) PO SCH (13:42)
[2017-02-26] MEDS: DIVALPROX SPRINKLE 125 MG (DEPAKOTE) CAP PO SCH (13:42)
[2017-02-26] MEDS: traZODone 50 MG (DESYREL) TAB PO SCH (22:26)
[2017-02-26] MEDS: meTOprolol TARTRATE 25 MG (LOPRESSOR) TABLET PO SCH (22:26)
[2017-02-26] MEDS: MEMANTINE 5 MG (NAMENDA) TABLET PO SCH (22:26)
[2017-02-26] MEDS: MELATONIN 3 MG TABLET PO SCH (22:27)
[2017-02-26] MEDS: BENAZEPRIL 10 MG (LOTENSIN) TAB PO SCH (22:27)
[2017-02-27] VITALS: BP_SYST 137; BP_SYST 164; BP_DIAS 62; BP_DIAS 65
[2017-02-27] MEDS ORDERED: LEVOFLOXACIN 750 MG/D5W 150 ML PRE-MIX IV ONE (01:00)
[2017-02-27 04:00] VITALS: BP 164/62
[2017-02-27 06:20] LABS: CALCIUM 7.7 MG/DL (8.5-10.1); POTASSIUM 4.2 MMOL/L (3.6-5.0)
[2017-02-27] MEDS: RT-ALBUTEROL/IPRATROPIUM 3 ML (DUONEB) VIAL INH SCH ×4 (06:55→20:32)
[2017-02-27 08:00] VITALS: BP 132/63
--- NOTE | 2017-02-27 10:14 | Cardiology Progress Note ---
Subjective Date Seen by Provider: Feb 27, 2017 Time Seen by Provider: 10:12 Subjective/Events-last exam Patient is laying down in bed, sleepy, still having some shortness of breath. Review of Systems General: No Chills, No Night Sweats, No Fatigue, No Malaise, No Appetite, No Other HEENT: No Head Aches, No Visual Changes, No Eye Pain, No Ear Pain, No Dysphasia , No Sinus Congestion, No Post Nasal Drip, No Sore Throat, No Other Pulmonary: Dyspnea, Cough, No Pleuritic Chest Pain, No Other Cardiovascular: No: Chest Pain, Palpitations, Orthopnea, Paroxysmal Noc. Dyspnea, Edema, Lt Headedness, Other Objective-Cardiology Exam Last Set of Vital Signs Vital Signs 02/27/17 08:00 Temp 96.1 Pulse 53 Resp 16 B/P (MAP) 132/63 Pulse Ox 94 O2 Delivery Nasal Cannula O2 Flow Rate 3.00 Capillary Refill : Less Than 3 Seconds I&O Intake and Output 02/28/17 00:00 Intake Total 125 ml Output Total 475 ml Balance -350 ml Intake Oral 125 ml Output Urine Total 475 ml General: Alert, Cooperative, Mild Distress HEENT: Atraumatic, PERRLA Neck: Supple, No JVD, No Thyromegaly Lungs: Normal Air Movement, Other (bilateral rhonchi) Heart: Regular Rate, Normal S1, Normal S2, Gallops Abdomen: Normal Bowel Sounds, Soft, No Tenderness, No Hepatosplenomegaly, No Masses Extremities: No Clubbing, No Cyanosis, Normal Pulses, No Tenderness/Swelling Skin: No Significant Lesion Neuro: Normal Speech, Normal Tone, Sensation Intact Psych/Mental Status: Mood NL Results Lab Laboratory Tests 02/27/17 05:10 A/P-Cardiology Admission Diagnosis Congestive heart failure Hypertension Dimensions Hypothyroidism Assessment/Plan Congestive heart failure, acute ventricular diastolic dysfunction, normal systolic function, unknown etiology, no previous history. hyperdynamic left ventricle. currently hypertensive. I started her on low-dose beta blockers and losartan, continue to monitor renal function and blood pressure closely. Borderline hypotension, intravascular volume depletion, better at this time, continue to monitor blood pressure Acute renal insufficiency, slightly worse today, if it continued to get worse I will discontinue losartan History of hypothyroidism. Maintained on thyroid replacement. Dementia Questionable history of atherosclerotic heart disease Patient is poor historian, no family members available, no contact information for family members, has not been in this hospital previously. Clinical Quality Measures DVT/VTE Risk/Contraindication: Risk Factor Score Per Nursin RFS Level Per Nursing on Admit: 4+=Very High YEHUDA ARRINGTON MD Feb 27, 2017 10:14
[2017-02-27] MEDS: DIVALPROX SPRINKLE 125 MG (DEPAKOTE) CAP PO SCH (11:00)
[2017-02-27] MEDS: MULTIVIT W/MINERALS TAB (THERAGRAN M) PO SCH (11:01)
[2017-02-27] MEDS: MEMANTINE 5 MG (NAMENDA) TABLET PO SCH ×2 (11:01→21:28)
[2017-02-27] MEDS: LOSARTAN 25 MG (COZAAR) TAB PO SCH (11:02)
[2017-02-27] MEDS: KCL 20 MEQ TAB (K-DUR) PO SCH (11:02)
[2017-02-27 12:00] VITALS: BP 147/66
[2017-02-27] MEDS: meTOprolol TARTRATE 25 MG (LOPRESSOR) TABLET PO SCH ×2 (13:39→21:28)
--- NOTE | 2017-02-27 15:48 | Progress Note-Hospitalist ---
Standard Progress Note Progress Notes/Assess & Plan Date Seen 02/27/17 Time Seen by Provider: 15:43 Assess & Plan/Chief Complaint The patient is brighter and less agitated today. Nurses state that she slept better last night after the dose of Haldol and her performance has been much less agitated and aggressive today. She has no complaints or concerns today. Physical exam: She appears older than stated age. Lungs are clear to auscultation. CV is regular without murmur. Abdomen is soft. Considerable ecchymoses are noted on the dorsal surface of both forearms. There is no pedal edema. Impression: Congestive heart failure with diffuse edema. Severe senile dementia. Plan: Continue present medications. Plan for discharge with the assistance of social services coordinator. Labs Laboratory Tests 02/26/17 05:02 02/27/17 05:10 MARA BARRERA MD Feb 27, 2017 15:48
[2017-02-27 16:00] VITALS: BP 127/66
[2017-02-27] MEDS: NEO/POLY/BAC (NEOSPORIN) OINT 15 GM TUBE TOP SCH ×2 (16:01→21:28)
[2017-02-27] MEDS: MELATONIN 3 MG TABLET PO SCH (21:28)
[2017-02-27] MEDS: BENAZEPRIL 10 MG (LOTENSIN) TAB PO SCH (21:28)
[2017-02-27] MEDS: traZODone 50 MG (DESYREL) TAB PO SCH (21:28)
[2017-02-28] VITALS: BP 126/58
[2017-02-28 07:04] LABS: CALCIUM 8.1 MG/DL (8.5-10.1); CREATININE SERUM 1.81 MG/DL (0.60-1.30); POTASSIUM 4.2 MMOL/L (3.6-5.0)
[2017-02-28] MEDS: RT-ALBUTEROL/IPRATROPIUM 3 ML (DUONEB) VIAL INH SCH ×4 (07:26→20:49)
--- NOTE | 2017-02-28 07:31 | Pulmonary Progress Note ---
Subjective Time Seen by Provider: 07:38 Subjective/Events-last exam Pt is doing better. No complications. Exam Exam Vital Signs Date Time Temp Pulse Resp B/P (MAP) Pulse Ox O2 Delivery O2 Flow Rate FiO2 02/28/17 00:00 98.0 58 18 126/58 95 Nasal Cannula 3.00 02/27/17 20:39 93 Nasal Cannula 3.00 02/27/17 20:30 NIV Bilevel 2.00 02/27/17 16:00 97.5 62 18 127/66 95 Nasal Cannula 3.00 02/27/17 14:20 93 Nasal Cannula 3.00 02/27/17 12:00 96.6 67 20 147/66 96 Nasal Cannula 3.00 02/27/17 10:26 93 Nasal Cannula 3.00 02/27/17 09:00 94 Nasal Cannula 3.00 02/27/17 08:00 96.1 53 16 132/63 94 Nasal Cannula 3.00 General Appearance: No Apparent Distress, WD/WN HEENT: PERRL/EOMI, TMs Normal, Normal ENT Inspection, Pharynx Normal Neck: Full Range of Motion, Normal Inspection, Non Tender, Supple, Carotid Bruit, JVD Respiratory: Chest Non Tender, No Accessory Muscle Use, No Respiratory Distress , Crackles, Decreased Breath Sounds Cardiovascular: No Edema, No JVD, Normal Peripheral Pulses, Systolic Murmur, Gallop/S3 Capillary Refill: Less Than 3 Seconds Extremity: Normal Capillary Refill, Normal Inspection, Normal Range of Motion, Non Tender, No Calf Tenderness, No Pedal Edema, Pedal Edema Neurologic/Psychiatric: Alert, Oriented x3, No Motor/Sensory Deficits, Normal Mood/Affect Skin: Normal Color, Warm/Dry Lymphatic: No Adenopathy Results Lab Laboratory Tests 02/27/17 05:10 02/28/17 05:50 Assessment/Plan Assessment/Plan Pneumonia -continue Levaquin for now and await cultures -repeat CXR Atelectasis -EasyPAP QID -IS Debility/dementia 232 Clinical Quality Measures DVT/VTE Risk/Contraindication: Risk Factor Score Per Nursin RFS Level Per Nursing on Admit: 4+=Very High FAYE BELTRAN DO Feb 28, 2017 07:31
--- NOTE | 2017-02-28 07:47 | Progress Note (SOAP) ---
Subjective Time Seen by Provider: 07:45 Subjective/Events-last exam Octavia. aTELECTASIS. hYPOTENSION. dEMENTia . CHF. The Patient resting comfortably this morning. Insufficiency Objective Exam Vital Signs Date Time Temp Pulse Resp B/P (MAP) Pulse Ox O2 Delivery O2 Flow Rate FiO2 02/28/17 07:26 93 Nasal Cannula 3.00 02/28/17 00:00 98.0 58 18 126/58 95 Nasal Cannula 3.00 02/27/17 20:39 93 Nasal Cannula 3.00 02/27/17 20:30 NIV Bilevel 2.00 02/27/17 16:00 97.5 62 18 127/66 95 Nasal Cannula 3.00 02/27/17 14:20 93 Nasal Cannula 3.00 02/27/17 12:00 96.6 67 20 147/66 96 Nasal Cannula 3.00 02/27/17 10:26 93 Nasal Cannula 3.00 02/27/17 09:00 94 Nasal Cannula 3.00 02/27/17 08:00 96.1 53 16 132/63 94 Nasal Cannula 3.00 Capillary Refill : Less Than 3 Seconds General Appearance: No Apparent Distress, Thin HEENT: Normal ENT Inspection Neck: Normal Inspection, Non Tender Respiratory: No Accessory Muscle Use, No Respiratory Distress, Decreased Breath Sounds Cardiovascular: Regular Rate, Rhythm, No Murmur Gastrointestinal: non tender, soft Results Lab Laboratory Tests 02/28/17 05:50 Laboratory Tests 02/27/17 11:43: Glucometer 121H 02/27/17 16:23: Glucometer 117H 02/27/17 21:18: Glucometer 123H 02/28/17 05:24: Glucometer 114H 02/28/17 05:50: Sodium Level 143, Potassium Level 4.2, Chloride Level 114H, Carbon Dioxide Level 19L, Anion Gap 10, Blood Urea Nitrogen 62H, Creatinine 1.81H, Estimat Glomerular Filtration Rate 27, BUN/Creatinine Ratio 34, Glucose Level 95, Calcium Level 8.1L Microbiology 02/25/17 Blood Culture - Preliminary, Resulted No growth 02/25/17 Influenza Types A,B Antigen (FRANCIS) - Final, Complete Assessment/Plan Assessment/Plan Assess & Plan/Chief Complaint pneumonia. Atelectasis. Renal ins. Hypotension. Dementia. CHF Clinical Quality Measures DVT/VTE Risk/Contraindication: Risk Factor Score Per Nursin RFS Level Per Nursing on Admit: 4+=Very High PEE PINTO DO Feb 28, 2017 07:47
[2017-02-28 08:00] VITALS: BP 135/63
--- NOTE | 2017-02-28 08:29 | Cardiology Progress Note ---
Subjective Date Seen by Provider: Feb 28, 2017 Time Seen by Provider: 08:25 Subjective/Events-last exam Patient is sitting in bed, eating breakfast, feeling better, no chest pain Review of Systems General: No Chills, No Night Sweats, No Fatigue, No Malaise, No Appetite, No Other HEENT: No Head Aches, No Visual Changes, No Eye Pain, No Ear Pain, No Dysphasia , No Sinus Congestion, No Post Nasal Drip, No Sore Throat, No Other Pulmonary: No Dyspnea, No Cough, No Pleuritic Chest Pain, No Other Cardiovascular: No: Chest Pain, Palpitations, Orthopnea, Paroxysmal Noc. Dyspnea, Edema, Lt Headedness, Other Objective-Cardiology Exam Last Set of Vital Signs Vital Signs 02/28/17 02/28/17 00:00 07:26 Temp 98.0 Pulse 58 Resp 18 B/P (MAP) 126/58 Pulse Ox 93 O2 Delivery Nasal Cannula O2 Flow Rate 3.00 Capillary Refill : Less Than 3 Seconds I&O Intake and Output 02/28/17 23:59 Intake Total 200 ml Output Total 325 ml Balance -125 ml Intake Oral 200 ml Output Urine Total 325 ml General: Alert, Cooperative, No Acute Distress HEENT: Atraumatic, PERRLA Neck: Supple, No JVD, No Thyromegaly Lungs: Normal Air Movement, Other (bilateral rhonchi) Heart: Regular Rate, Normal S1, Normal S2, Gallops Abdomen: Normal Bowel Sounds, Soft, No Tenderness, No Hepatosplenomegaly, No Masses Extremities: No Clubbing, No Cyanosis, Normal Pulses, No Tenderness/Swelling Skin: No Significant Lesion Neuro: Normal Speech, Normal Tone, Sensation Intact Psych/Mental Status: Mood NL Results Lab Laboratory Tests 02/28/17 05:50 A/P-Cardiology Admission Diagnosis Congestive heart failure Hypertension Dimensions Hypothyroidism Assessment/Plan Congestive heart failure, acute ventricular diastolic dysfunction, normal systolic function, unknown etiology, no previous history. hyperdynamic left ventricle. Resolved now, probably hypertensive heart disease. Pneumonia, managed by primary care physician Borderline hypotension, intravascular volume depletion, better at this time, continue to monitor blood pressure Acute renal insufficiency, improving slowly, continue to monitor History of hypothyroidism. Maintained on thyroid replacement. Dementia Questionable history of atherosclerotic heart disease Patient is poor historian, no family members available, no contact information for family members, has not been in this hospital previously. Clinical Quality Measures DVT/VTE Risk/Contraindication: Risk Factor Score Per Nursin RFS Level Per Nursing on Admit: 4+=Very High YEHUDA ARRINGTON MD Feb 28, 2017 08:29
[2017-02-28] MEDS: DIVALPROX SPRINKLE 125 MG (DEPAKOTE) CAP PO SCH (09:14)
[2017-02-28] MEDS: MULTIVIT W/MINERALS TAB (THERAGRAN M) PO SCH (09:14)
[2017-02-28] MEDS: KCL 20 MEQ TAB (K-DUR) PO SCH (09:14)
[2017-02-28] MEDS: NEO/POLY/BAC (NEOSPORIN) OINT 15 GM TUBE TOP SCH ×2 (09:15→20:29)
[2017-02-28] MEDS: meTOprolol TARTRATE 25 MG (LOPRESSOR) TABLET PO SCH ×2 (09:15→20:29)
[2017-02-28] MEDS: LOSARTAN 25 MG (COZAAR) TAB PO SCH (09:15)
[2017-02-28] MEDS: MEMANTINE 5 MG (NAMENDA) TABLET PO SCH ×2 (09:15→20:29)
[2017-02-28 09:17] LABS: BASOPHILS % (AUTO) 0 % (0-10); EOSINOPHILS % (AUTO) 0 % (0-10); LYMPHOCYTES # (AUTO) 0.6 X 10^3 (1.0-4.0); LYMPHOCYTES % (AUTO) 8 % (12-44); MEAN CORPUSCULAR HEMOGLOBIN 29 PG (25-34); MEAN CORPUSCULAR HGB CONC 33 G/DL (32-36); MEAN CORPUSCULAR VOLUME 88 FL (80-99); MEAN PLATELET VOLUME 9.4 FL (7.4-10.4); MONOCYTES # (AUTO) 0.8 X 10^3 (0.0-1.0); MONOCYTES % (AUTO) 11 % (0-12); NEUTROPHILS # (AUTO) 5.3 X 10^3 (1.8-7.8); NEUTROPHILS % (AUTO) 80 % (42-75); PLATELET COUNT 200 10^3/uL (130-400); RED BLOOD COUNT 3.25 10^6/uL (4.35-5.85); RED CELL DISTRIBUTION WIDTH 14.9 % (10.0-14.5); WHITE BLOOD COUNT 6.7 10^3/uL (4.3-11.0)
--- NOTE | 2017-02-28 09:18 | Diagnostic Imaging Report ---
INDICATION: Shortness of breath. COMPARISON: 02/26/2017. FINDINGS: There is cardiomegaly. There is venous congestion. There are bibasilar infiltrates. There is a right pleural effusion. There is no pneumothorax. The mediastinum is unremarkable. IMPRESSION: Bibasilar infiltrates, right greater than left, with a right pleural effusion. Cardiomegaly and some central pulmonary venous congestion. Dictated by: Dictated on workstation # [id number]
[2017-02-28 09:35] LABS: CALCIUM 8.1 MG/DL (8.5-10.1); CREATININE SERUM 1.84 MG/DL (0.60-1.30); POTASSIUM 4.1 MMOL/L (3.6-5.0)
[2017-02-28] MEDS: ACETAMINOPHEN 500 MG TAB (TYLENOL) PO PRN (10:45)
[2017-02-28 16:59] VITALS: BP 178/67
[2017-02-28] MEDS: BENAZEPRIL 10 MG (LOTENSIN) TAB PO SCH (20:29)
[2017-02-28] MEDS: MELATONIN 3 MG TABLET PO SCH (20:29)
[2017-02-28] MEDS: traZODone 50 MG (DESYREL) TAB PO SCH (20:29)
[2017-02-28] MEDS ORDERED: NITROGLYCERIN 0.4 MG SL TABS BTL 25'S SL ONE (22:15)
[2017-03-01 00:45] VITALS: BP 153/65
[2017-03-01 05:39] LABS: BASOPHILS % (AUTO) 0 % (0-10); EOSINOPHILS # (AUTO) 0.1 10^3/uL (0.0-0.3); EOSINOPHILS % (AUTO) 1 % (0-10); LYMPHOCYTES # (AUTO) 0.6 X 10^3 (1.0-4.0); LYMPHOCYTES % (AUTO) 12 % (12-44); MEAN CORPUSCULAR HEMOGLOBIN 28 PG (25-34); MEAN CORPUSCULAR HGB CONC 32 G/DL (32-36); MEAN CORPUSCULAR VOLUME 88 FL (80-99); MEAN PLATELET VOLUME 9.3 FL (7.4-10.4); MONOCYTES # (AUTO) 0.5 X 10^3 (0.0-1.0); MONOCYTES % (AUTO) 10 % (0-12); NEUTROPHILS # (AUTO) 4.1 X 10^3 (1.8-7.8); NEUTROPHILS % (AUTO) 78 % (42-75); PLATELET COUNT 175 10^3/uL (130-400); RED BLOOD COUNT 2.96 10^6/uL (4.35-5.85); RED CELL DISTRIBUTION WIDTH 14.8 % (10.0-14.5); WHITE BLOOD COUNT 5.3 10^3/uL (4.3-11.0)
[2017-03-01 06:09] LABS: CALCIUM 7.8 MG/DL (8.5-10.1); CREATININE SERUM 1.54 MG/DL (0.60-1.30); POTASSIUM 4.5 MMOL/L (3.6-5.0)
[2017-03-01] MEDS: RT-ALBUTEROL/IPRATROPIUM 3 ML (DUONEB) VIAL INH SCH ×3 (07:25→13:46)
--- NOTE | 2017-03-01 07:33 | Progress Note (SOAP) ---
Subjective Time Seen by Provider: 07:30 Subjective/Events-last exam patient doing well. Patient not having any problems breathing. Plan to discharge today if okay with pulmonology and cardiology. Pneumonia. Congestive heart failure. Renal insufficiency better. Dementia. Atelectasis. Debility better. Anemia Objective Exam Vital Signs Date Time Temp Pulse Resp B/P (MAP) Pulse Ox O2 Delivery O2 Flow Rate FiO2 03/01/17 00:45 98.7 60 18 153/65 97 Nasal Cannula 2.00 02/28/17 20:49 93 Nasal Cannula 3.00 02/28/17 20:35 Nasal Cannula 2.00 02/28/17 16:59 98.0 68 18 178/67 92 Nasal Cannula 3.00 02/28/17 11:17 93 Nasal Cannula 3.00 02/28/17 08:45 Nasal Cannula 2.00 02/28/17 08:00 97.5 135/63 Nasal Cannula 3.00 Capillary Refill : Less Than 3 Seconds General Appearance: No Apparent Distress, Thin HEENT: Normal ENT Inspection Neck: Full Range of Motion, Normal Inspection Respiratory: Chest Non Tender, Lungs Clear, No Accessory Muscle Use, No Respiratory Distress Cardiovascular: Regular Rate, Rhythm, No Murmur Gastrointestinal: non tender, soft Results Lab Laboratory Tests 02/28/17 08:59 03/01/17 05:15 Laboratory Tests 02/28/17 08:59: White Blood Count 6.7, Red Blood Count 3.25L, Hemoglobin 9.3L, Hematocrit 29L, Mean Corpuscular Volume 88, Mean Corpuscular Hemoglobin 29, Mean Corpuscular Hemoglobin Concent 33, Red Cell Distribution Width 14.9H, Platelet Count 200, Mean Platelet Volume 9.4, Neutrophils (%) (Auto) 80H, Lymphocytes (%) (Auto) 8L , Monocytes (%) (Auto) 11, Eosinophils (%) (Auto) 0, Basophils (%) (Auto) 0, Neutrophils # (Auto) 5.3, Lymphocytes # (Auto) 0.6L, Monocytes # (Auto) 0.8, Eosinophils # (Auto) 0.0, Basophils # (Auto) 0.0, Sodium Level 142, Potassium Level 4.1, Chloride Level 113H, Carbon Dioxide Level 20L, Anion Gap 9, Blood Urea Nitrogen 60H, Creatinine 1.84H, Estimat Glomerular Filtration Rate 26, BUN/ Creatinine Ratio 33, Glucose Level 131H, Calcium Level 8.1L 03/01/17 05:15: White Blood Count 5.3, Red Blood Count 2.96L, Hemoglobin 8.3L, Hematocrit 26L, Mean Corpuscular Volume 88, Mean Corpuscular Hemoglobin 28, Mean Corpuscular Hemoglobin Concent 32, Red Cell Distribution Width 14.8H, Platelet Count 175, Mean Platelet Volume 9.3, Neutrophils (%) (Auto) 78H, Lymphocytes (%) (Auto) 12 , Monocytes (%) (Auto) 10, Eosinophils (%) (Auto) 1, Basophils (%) (Auto) 0, Neutrophils # (Auto) 4.1, Lymphocytes # (Auto) 0.6L, Monocytes # (Auto) 0.5, Eosinophils # (Auto) 0.1, Basophils # (Auto) 0.0, Sodium Level 143, Potassium Level 4.5, Chloride Level 114H, Carbon Dioxide Level 22, Anion Gap 7, Blood Urea Nitrogen 50H, Creatinine 1.54H, Estimat Glomerular Filtration Rate 32, BUN/ Creatinine Ratio 32, Glucose Level 104, Calcium Level 7.8L Microbiology 02/25/17 Blood Culture - Preliminary, Resulted No growth 02/25/17 Influenza Types A,B Antigen (FRANCIS) - Final, Complete Radiology [facility] REC#: [id number] PT STATUS: ADM IN : 1930 PHYSICIAN: FAYE BELTRAN DO ADMIT DATE: 02/25/17 Signed Date of Exam: 02/28/17 CHEST 1 VIEW, AP/PA ONLY INDICATION: Shortness of breath. COMPARISON: 02/26/2017. FINDINGS: There is cardiomegaly. There is venous congestion. There are bibasilar infiltrates. There is a right pleural effusion. There is no pneumothorax. The mediastinum is unremarkable. IMPRESSION: Bibasilar infiltrates, right greater than left, with a right pleural effusion. Cardiomegaly and some central pulmonary venous congestion. Dictated by: Dictated on workstation # [id number] Dict: 02/28/17 0836 Trans: 02/28/17 0937 Interpreted by: DALLAS EVANS MD Electronically signed by: DALLAS EVANS MD 02/28/17 0937 Assessment/Plan Assessment/Plan Assess & Plan/Chief Complaint pneumonia. Atelectasis. Renal ins. Hypotension. Dementia. CHF. . 03/01/17. Patient doing better and feeling better. Pneumonia. Atelectasis. CHF. Renal insufficiency better. Dementia. Anemia. Hypotension. Patient doing as good as can be expected Clinical Quality Measures DVT/VTE Risk/Contraindication: Risk Factor Score Per Nursin RFS Level Per Nursing on Admit: 4+=Very High PEE PINTO DO Mar 01, 2017 07:33
--- NOTE | 2017-03-01 07:43 | Pulmonary Progress Note ---
Exam Exam Vital Signs Date Time Temp Pulse Resp B/P (MAP) Pulse Ox O2 Delivery O2 Flow Rate FiO2 03/01/17 07:31 95 Nasal Cannula 3.00 03/01/17 00:45 98.7 60 18 153/65 97 Nasal Cannula 2.00 02/28/17 20:49 93 Nasal Cannula 3.00 02/28/17 20:35 Nasal Cannula 2.00 02/28/17 16:59 98.0 68 18 178/67 92 Nasal Cannula 3.00 02/28/17 11:17 93 Nasal Cannula 3.00 02/28/17 08:45 Nasal Cannula 2.00 02/28/17 08:00 97.5 135/63 Nasal Cannula 3.00 General Appearance: No Apparent Distress, Thin HEENT: Normal ENT Inspection Neck: Full Range of Motion, Normal Inspection Respiratory: Chest Non Tender, Lungs Clear, No Accessory Muscle Use, No Respiratory Distress Cardiovascular: Regular Rate, Rhythm, No Murmur Capillary Refill: Less Than 3 Seconds Gastrointestinal: non tender, soft Extremity: Normal Capillary Refill, Normal Inspection, Normal Range of Motion, Non Tender, No Calf Tenderness, No Pedal Edema, Pedal Edema Neurologic/Psychiatric: Alert, Oriented x3, No Motor/Sensory Deficits, Normal Mood/Affect Skin: Normal Color, Warm/Dry Lymphatic: No Adenopathy Results Lab Laboratory Tests 02/28/17 05:50 02/28/17 08:59 03/01/17 05:15 Assessment/Plan Assessment/Plan Pneumonia -continue Levaquin for total of 7days -repeat CXR Right pleural effusion -CHeck BNP Diastolic CHF -Cardiology following Atelectasis -EasyPAP QID -IS Debility/dementia Renal failure - present on admission probably acute on chronic -monitor 232 Clinical Quality Measures DVT/VTE Risk/Contraindication: Risk Factor Score Per Nursin RFS Level Per Nursing on Admit: 4+=Very High FAYE BELTRAN DO Mar 01, 2017 07:43
--- NOTE | 2017-03-01 07:49 | Pulmonary Progress Note ---
Subjective Time Seen by Provider: 08:15 Subjective/Events-last exam Pt is dong much better. No complications noted. Exam Exam Vital Signs Date Time Temp Pulse Resp B/P (MAP) Pulse Ox O2 Delivery O2 Flow Rate FiO2 03/01/17 07:31 95 Nasal Cannula 3.00 03/01/17 00:45 98.7 60 18 153/65 97 Nasal Cannula 2.00 02/28/17 20:49 93 Nasal Cannula 3.00 02/28/17 20:35 Nasal Cannula 2.00 02/28/17 16:59 98.0 68 18 178/67 92 Nasal Cannula 3.00 02/28/17 11:17 93 Nasal Cannula 3.00 02/28/17 08:45 Nasal Cannula 2.00 02/28/17 08:00 97.5 135/63 Nasal Cannula 3.00 General Appearance: No Apparent Distress, Thin HEENT: Normal ENT Inspection Neck: Full Range of Motion, Normal Inspection Respiratory: Chest Non Tender, Lungs Clear, No Accessory Muscle Use, No Respiratory Distress Cardiovascular: Regular Rate, Rhythm, No Murmur Capillary Refill: Less Than 3 Seconds Gastrointestinal: non tender, soft Extremity: Normal Capillary Refill, Normal Inspection, Normal Range of Motion, Non Tender, No Calf Tenderness, No Pedal Edema, Pedal Edema Neurologic/Psychiatric: Alert, Oriented x3, No Motor/Sensory Deficits, Normal Mood/Affect Skin: Normal Color, Warm/Dry Lymphatic: No Adenopathy Results Lab Laboratory Tests 02/28/17 05:50 02/28/17 08:59 03/01/17 05:15 Assessment/Plan Assessment/Plan Pneumonia -continue Levaquin for total of 7days Right pleural effusion -BNP pending Diastolic CHF -Cardiology following Atelectasis -EasyPAP QID -IS Debility/dementia Renal failure - present on admission probably acute on chronic -monitor 232 Pt is ok from pulmonary standpoint for discharge. Clinical Quality Measures DVT/VTE Risk/Contraindication: Risk Factor Score Per Nursin RFS Level Per Nursing on Admit: 4+=Very High FAYE BELTRAN DO Mar 01, 2017 07:48
[2017-03-01 08:00] VITALS: BP 133/7
--- NOTE | 2017-03-01 08:07 | Cardiology Progress Note ---
Subjective Date Seen by Provider: Mar 01, 2017 Time Seen by Provider: 08:06 Subjective/Events-last exam Patient sitting up in bed, eating breakfast, no new complaint. Denies any CP or dyspnea. Review of Systems General: No Night Sweats, No Fatigue, No Malaise HEENT: No Visual Changes, No Dysphasia Pulmonary: No Dyspnea, No Cough Cardiovascular: No: Chest Pain, Palpitations, Paroxysmal Noc. Dyspnea, Edema Gastrointestinal: No: Nausea, Vomiting, Abdominal Pain Genitourinary: No Dysuria, No Frequency Musculoskeletal: No: neck pain, back pain Neurological: No: Weakness, Numbness, Change in speech Objective-Cardiology Exam Last Set of Vital Signs Vital Signs 03/01/17 03/01/17 00:45 07:31 Temp 98.7 Pulse 60 Resp 18 B/P (MAP) 153/65 Pulse Ox 95 O2 Delivery Nasal Cannula O2 Flow Rate 3.00 Capillary Refill : Less Than 3 Seconds I&O Intake and Output 03/02/17 00:00 Intake Total 50 ml Output Total 300 ml Balance -250 ml Intake Oral 50 ml Output Urine Total 300 ml General: Alert, Cooperative, No Acute Distress HEENT: Atraumatic, PERRLA Neck: Supple, No JVD, No Thyromegaly Lungs: Normal Air Movement, Other (diminished breath sounds) Heart: Regular Rate, Normal S1, Normal S2, Gallops Abdomen: Normal Bowel Sounds, Soft, No Tenderness, No Hepatosplenomegaly, No Masses Extremities: No Clubbing, No Cyanosis, Normal Pulses, No Tenderness/Swelling Skin: No Significant Lesion Neuro: Normal Speech, Normal Tone, Sensation Intact Psych/Mental Status: Mood NL Results Lab Laboratory Tests 02/28/17 08:59 03/01/17 05:15 A/P-Cardiology Admission Diagnosis Congestive heart failure Hypertension Dimensions Hypothyroidism Assessment/Plan Congestive heart failure, acute ventricular diastolic dysfunction, normal systolic function, unknown etiology, no previous history. hyperdynamic left ventricle. Resolved now, probably hypertensive heart disease. Pneumonia, managed by primary care physician Borderline hypotension, intravascular volume depletion, better at this time, continue to monitor blood pressure Acute renal insufficiency, improving slowly, continue to monitor History of hypothyroidism. Maintained on thyroid replacement. Dementia Questionable history of atherosclerotic heart disease Patient is poor historian Clinical Quality Measures DVT/VTE Risk/Contraindication: Risk Factor Score Per Nursin RFS Level Per Nursing on Admit: 4+=Very High CHAPMAN-TERA,PETER K PA Mar 01, 2017 08:07
[2017-03-01] MEDS: MEMANTINE 5 MG (NAMENDA) TABLET PO SCH (09:07)
[2017-03-01] MEDS: KCL 20 MEQ TAB (K-DUR) PO SCH (09:07)
[2017-03-01] MEDS: DIVALPROX SPRINKLE 125 MG (DEPAKOTE) CAP PO SCH (09:07)
[2017-03-01] MEDS: MULTIVIT W/MINERALS TAB (THERAGRAN M) PO SCH (09:07)
[2017-03-01] MEDS: meTOprolol TARTRATE 25 MG (LOPRESSOR) TABLET PO SCH (09:07)
[2017-03-01] MEDS: NEO/POLY/BAC (NEOSPORIN) OINT 15 GM TUBE TOP SCH (09:08)
[2017-03-01] MEDS: ACETAMINOPHEN 500 MG TAB (TYLENOL) PO PRN (09:08)
--- NOTE | 2017-03-01 09:35 | Cardiology Progress Note ---
Subjective Date Seen by Provider: Mar 01, 2017 Time Seen by Provider: 08:30 Subjective/Events-last exam Patient is laying down in bed, feeling better, still having some cough. Denied any chest pain. Had an episode of chest pain last night resolved after receiving sublingual nitroglycerin Review of Systems General: No Chills, No Night Sweats, No Fatigue, No Malaise, No Appetite, No Other HEENT: No Head Aches, No Visual Changes, No Eye Pain, No Ear Pain, No Dysphasia , No Sinus Congestion, No Post Nasal Drip, No Sore Throat, No Other Pulmonary: Dyspnea, No Cough, No Pleuritic Chest Pain, No Other Cardiovascular: Chest Pain, No: Palpitations, Orthopnea, Paroxysmal Noc. Dyspnea, Edema, Lt Headedness, Other Objective-Cardiology Exam Last Set of Vital Signs Vital Signs 03/01/17 08:00 Temp 97.6 Pulse 69 Resp 18 B/P (MAP) 133/7 Pulse Ox 94 O2 Delivery Nasal Cannula O2 Flow Rate 2.00 Capillary Refill : Less Than 3 Seconds I&O Intake and Output 03/02/17 00:00 Intake Total 50 ml Output Total 300 ml Balance -250 ml Intake Oral 50 ml Output Urine Total 300 ml General: Alert, Cooperative, No Acute Distress HEENT: Atraumatic, PERRLA Neck: Supple, No JVD, No Thyromegaly Lungs: Normal Air Movement, Other (diminished breath sounds) Heart: Regular Rate, Normal S1, Normal S2, Gallops Abdomen: Normal Bowel Sounds, Soft, No Tenderness, No Hepatosplenomegaly, No Masses Extremities: No Clubbing, No Cyanosis, Normal Pulses, No Tenderness/Swelling Skin: No Significant Lesion Neuro: Normal Speech, Normal Tone, Sensation Intact Psych/Mental Status: Mood NL Results Lab Laboratory Tests 03/01/17 05:15 A/P-Cardiology Admission Diagnosis Congestive heart failure Hypertension Dimensions Hypothyroidism Assessment/Plan Congestive heart failure, acute ventricular diastolic dysfunction, normal systolic function, unknown etiology, no previous history. hyperdynamic left ventricle. Resolved now, probably hypertensive heart disease. Chest pain nonspecific etiology, atypical in presentation, had an episode of chest pain last night. At this time conservative management is recommended. Pneumonia, managed by primary care physician Borderline hypotension, intravascular volume depletion, better at this time, continue to monitor blood pressure Acute renal insufficiency, improving slowly, continue to monitor History of hypothyroidism. Maintained on thyroid replacement. Dementia Questionable history of atherosclerotic heart disease Clinical Quality Measures DVT/VTE Risk/Contraindication: Risk Factor Score Per Nursin RFS Level Per Nursing on Admit: 4+=Very High YEHUDA ARRINGTON MD Mar 01, 2017 09:35
[2017-03-01] MEDS ORDERED: LEVOFLOXACIN 750 MG TAB (LEVAQUIN) PO SCH (11:00)
[2017-03-01] MEDS ORDERED: LEVO500T2 PO (11:17)
[2017-03-01] MEDS ORDERED: FERR-74 PO (11:17)
[2017-03-01] MEDS ORDERED: MEMA10TA2 PO (11:19)
[2017-03-01] MEDS ORDERED: MEMA5TAB PO (11:19)
[2017-03-01 15:39] VITALS: BP 133/7
--- NOTE | 2017-03-03 07:29 | Discharge Summary ---
Diagnosis/Chief Complaint Date of Admission Feb 25, 2017 at 02:30 Date of Discharge Mar 01, 2017 at 15:35 Discharge Time: 07:20 Admission Diagnosis Admission Diagnosis dyspnea. Hypotension. Prerenal failure. Debility. Dementia. Elevated BNP Discharge Diagnosis dyspnea. Pneumonia. CHF. Anemia. Renal insufficiency. Hypotension. History of hypertension. Atelectasis. Debility. Dementia. Hypothyroid Reason Hospital Visit patient resident of [facility]. Patient had episodes of shortness of breath, swelling of legs, and pulse ox went down to 50. Patient sent by EMS to the emergency room. Patient has an elevated BNP and chest x-ray shows some pulmonary edema. Patient hypotensive. Patient has prerenal failure. Patient admitted inpatient for hospital. 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 Patient states her heart goes irregular. Surgeries tubal , appendectomy and tonsils. Family history diabetes in family Discharge Summary Consultations cardiology. Pulmonology Discharge Physical Examination Allergies: Coded Allergies: cephalexin (Verified Allergy, Unknown, 02/25/17) glyburide (Verified Allergy, Unknown, 02/25/17) hydrochlorothiazide (Verified Allergy, Unknown, 02/25/17) lisinopril (Verified Allergy, Unknown, 02/25/17) metformin (Verified Allergy, Unknown, 02/25/17) rofecoxib (Verified Allergy, Unknown, 02/25/17) Vitals & I&Os Vital Signs Date Time Temp Pulse Resp B/P (MAP) Pulse Ox O2 Delivery O2 Flow Rate FiO2 03/01/17 15:39 69 18 133/7 93 Nasal Cannula 3.00 03/01/17 08:00 97.6 Hospital Course Labs (last 24 hrs) Laboratory Tests 02/25/17 01:15: White Blood Count 6.8, Red Blood Count 3.40L, Hemoglobin 9.7L, Hematocrit 30L, Mean Corpuscular Volume 87, Mean Corpuscular Hemoglobin 29, Mean Corpuscular Hemoglobin Concent 33, Red Cell Distribution Width 15.1H, Platelet Count 151, Mean Platelet Volume 10.1, Neutrophils (%) (Auto) 78H, Lymphocytes (%) (Auto) 7L , Monocytes (%) (Auto) 16H, Eosinophils (%) (Auto) 0, Basophils (%) (Auto) 0, Neutrophils # (Auto) 5.3, Lymphocytes # (Auto) 0.4L, Monocytes # (Auto) 1.1H, Eosinophils # (Auto) 0.0, Basophils # (Auto) 0.0, Neutrophils % (Manual) 81, Lymphocytes % (Manual) 4, Monocytes % (Manual) 8, Eosinophils % (Manual) 0, Basophils % (Manual) 0, Band Neutrophils 7, Polychromasia SLIGHT, Hypochromasia SLIGHT, Anisocytosis SLIGHT, Prothrombin Time 14.8H, INR Comment 1.2, Activated Partial Thromboplast Time 34, Sodium Level 137, Potassium Level 3.7, Chloride Level 105, Carbon Dioxide Level 21, Anion Gap 11, Blood Urea Nitrogen 49H, Creatinine 1.81H, Estimat Glomerular Filtration Rate 27, BUN/Creatinine Ratio 27 , Glucose Level 146H, Lactic Acid Level 1.22, Calcium Level 8.5, Magnesium Level 1.7L, Total Bilirubin 0.6, Aspartate Amino Transf (AST/SGOT) 38H, Alanine Aminotransferase (ALT/SGPT) 52, Alkaline Phosphatase 102, Total Creatine Kinase 21L, Creatine Kinase MB 1.7, Troponin I < 0.30, B-Type Natriuretic Peptide 1369.0H, Total Protein 5.8L, Albumin 3.1L, TSH Cache Testing 0.49, Valproic Acid (Depakene) Level 21.4L 02/25/17 02:11: Urine Color YELLOW, Urine Clarity CLEAR, Urine pH 5, Urine Specific [place] 1.015L, Urine Protein NEGATIVE, Urine Glucose (UA) NEGATIVE, Urine Ketones NEGATIVE, Urine Nitrite NEGATIVE, Urine Bilirubin NEGATIVE, Urine Urobilinogen NORMAL, Urine Leukocyte Esterase NEGATIVE, Urine RBC (Auto) NEGATIVE, Urine RBC NONE, Urine WBC NONE, Urine Squamous Epithelial Cells RARE, Urine Crystals PRESENTH, Urine Amorphous Sediment FEW ELÍAS URATESH, Urine Bacteria TRACE, Urine Casts PRESENT, Urine Hyaline Casts 5-10H, Urine Mucus NEGATIVE, Urine Culture Indicated NO 02/25/17 06:45: White Blood Count 3.8L, Red Blood Count 3.20L, Hemoglobin 9.2L, Hematocrit 28L, Mean Corpuscular Volume 88, Mean Corpuscular Hemoglobin 29, Mean Corpuscular Hemoglobin Concent 33, Red Cell Distribution Width 15.0H, Platelet Count 128L, Mean Platelet Volume 10.6H, Neutrophils (%) (Auto) 83H, Lymphocytes (%) (Auto) 5L, Monocytes (%) (Auto) 8, Eosinophils (%) (Auto) 5, Basophils (%) (Auto) 0, Neutrophils # (Auto) 3.1, Lymphocytes # (Auto) 0.2L, Monocytes # (Auto) 0.3, Eosinophils # (Auto) 0.2, Basophils # (Auto) 0.0, Sodium Level 138, Potassium Level 4.2, Chloride Level 108H, Carbon Dioxide Level 19L, Anion Gap 11, Blood Urea Nitrogen 48H, Creatinine 1.73H, Estimat Glomerular Filtration Rate 28, BUN/ Creatinine Ratio 28, Glucose Level 166H, Calcium Level 8.1L, Magnesium Level 1.6L, Total Bilirubin 0.4, Aspartate Amino Transf (AST/SGOT) 34, Alanine Aminotransferase (ALT/SGPT) 45, Alkaline Phosphatase 90, Troponin I < 0.30, Total Protein 5.4L, Albumin 2.8L, Phosphorus Level 3.7 02/25/17 11:20: Glucometer 178H 02/25/17 12:16: Troponin I < 0.30 02/25/17 15:42: Glucometer 200H 02/25/17 21:24: Glucometer 195H 02/26/17 05:02: White Blood Count 3.7L, Red Blood Count 2.93L, Hemoglobin 8.3L, Hematocrit 25L, Mean Corpuscular Volume 86, Mean Corpuscular Hemoglobin 28, Mean Corpuscular Hemoglobin Concent 33, Red Cell Distribution Width 14.5, Platelet Count 150, Mean Platelet Volume 10.2, Neutrophils (%) (Auto) 85H, Lymphocytes (%) (Auto) 10L, Monocytes (%) (Auto) 6, Eosinophils (%) (Auto) 0, Basophils (%) (Auto) 0, Neutrophils # (Auto) 3.1, Lymphocytes # (Auto) 0.4L, Monocytes # (Auto) 0.2, Eosinophils # (Auto) 0.0, Basophils # (Auto) 0.0, Sodium Level 138, Potassium Level 3.6, Chloride Level 110H, Carbon Dioxide Level 18L, Anion Gap 10, Blood Urea Nitrogen 57H, Creatinine 1.90H, Estimat Glomerular Filtration Rate 25, BUN/ Creatinine Ratio 30, Glucose Level 182H, Calcium Level 8.0L, Phosphorus Level 3.7, Magnesium Level 2.1, Total Bilirubin 0.3, Aspartate Amino Transf (AST/SGOT ) 30, Alanine Aminotransferase (ALT/SGPT) 42, Alkaline Phosphatase 81, B-Type Natriuretic Peptide 964.7H, Total Protein 5.2L, Albumin 2.7L 02/26/17 11:51: Glucometer 172H 02/26/17 16:56: Glucometer 155H 02/26/17 21:10: Glucometer 156H 02/27/17 05:10: Sodium Level 141, Potassium Level 4.2, Chloride Level 111H, Carbon Dioxide Level 20L, Anion Gap 10, Blood Urea Nitrogen 66H, Creatinine 2.00H, Estimat Glomerular Filtration Rate 24, BUN/Creatinine Ratio 33, Glucose Level 134H, Calcium Level 7.7L 02/27/17 05:53: Glucometer 140H 02/27/17 11:43: Glucometer 121H 02/27/17 16:23: Glucometer 117H 02/27/17 21:18: Glucometer 123H 02/28/17 05:24: Glucometer 114H 02/28/17 05:50: Sodium Level 143, Potassium Level 4.2, Chloride Level 114H, Carbon Dioxide Level 19L, Anion Gap 10, Blood Urea Nitrogen 62H, Creatinine 1.81H, Estimat Glomerular Filtration Rate 27, BUN/Creatinine Ratio 34, Glucose Level 95, Calcium Level 8.1L 02/28/17 08:59: Sodium Level 142, Potassium Level 4.1, Chloride Level 113H, Carbon Dioxide Level 20L, Anion Gap 9, Blood Urea Nitrogen 60H, Creatinine 1.84H, Estimat Glomerular Filtration Rate 26, BUN/Creatinine Ratio 33, Glucose Level 131H, Calcium Level 8.1L, White Blood Count 6.7, Red Blood Count 3.25L, Hemoglobin 9.3L, Hematocrit 29L, Mean Corpuscular Volume 88, Mean Corpuscular Hemoglobin 29 , Mean Corpuscular Hemoglobin Concent 33, Red Cell Distribution Width 14.9H, Platelet Count 200, Mean Platelet Volume 9.4, Neutrophils (%) (Auto) 80H, Lymphocytes (%) (Auto) 8L, Monocytes (%) (Auto) 11, Eosinophils (%) (Auto) 0, Basophils (%) (Auto) 0, Neutrophils # (Auto) 5.3, Lymphocytes # (Auto) 0.6L, Monocytes # (Auto) 0.8, Eosinophils # (Auto) 0.0, Basophils # (Auto) 0.0 03/01/17 05:15: Sodium Level 143, Potassium Level 4.5, Chloride Level 114H, Carbon Dioxide Level 22, Anion Gap 7, Blood Urea Nitrogen 50H, Creatinine 1.54H, Estimat Glomerular Filtration Rate 32, BUN/Creatinine Ratio 32, Glucose Level 104, Calcium Level 7.8L, White Blood Count 5.3, Red Blood Count 2.96L, Hemoglobin 8.3L, Hematocrit 26L, Mean Corpuscular Volume 88, Mean Corpuscular Hemoglobin 28 , Mean Corpuscular Hemoglobin Concent 32, Red Cell Distribution Width 14.8H, Platelet Count 175, Mean Platelet Volume 9.3, Neutrophils (%) (Auto) 78H, Lymphocytes (%) (Auto) 12, Monocytes (%) (Auto) 10, Eosinophils (%) (Auto) 1, Basophils (%) (Auto) 0, Neutrophils # (Auto) 4.1, Lymphocytes # (Auto) 0.6L, Monocytes # (Auto) 0.5, Eosinophils # (Auto) 0.1, Basophils # (Auto) 0.0, B- Type Natriuretic Peptide 798.3H Microbiology 02/25/17 Blood Culture - Final, Complete No growth 02/25/17 Influenza Types A,B Antigen (FRANCIS) - Final, Complete Laboratory Tests 02/25/17 01:15 02/25/17 06:45 02/26/17 05:02 02/27/17 05:10 02/28/17 05:50 02/28/17 08:59 03/01/17 05:15 Pending Labs Microbiology Date/Time Source Procedure Growth Status 02/25/17 01:30 Peripheral Lt Ac Blood Culture - Final No growth Complete 02/25/17 01:15 Peripheral Lt Ac Blood Culture - Final No growth Complete 02/25/17 01:54 Nasopharynx Influenza Types A,B Antigen (FRANCIS) - Final Complete Laboratory Tests 02/25/17 01:15: White Blood Count 6.8, Red Blood Count 3.40, Hemoglobin 9.7, Hematocrit 30, Mean Corpuscular Volume 87, Mean Corpuscular Hemoglobin 29, Mean Corpuscular Hemoglobin Concent 33, Red Cell Distribution Width 15.1, Platelet Count 151, Mean Platelet Volume 10.1, Neutrophils (%) (Auto) 78, Lymphocytes (%) (Auto) 7, Monocytes (%) (Auto) 16, Eosinophils (%) (Auto) 0, Basophils (%) (Auto) 0, Neutrophils # (Auto) 5.3, Lymphocytes # (Auto) 0.4, Monocytes # (Auto) 1.1, Eosinophils # (Auto) 0.0, Basophils # (Auto) 0.0, Neutrophils % (Manual) 81, Lymphocytes % (Manual) 4, Monocytes % (Manual) 8, Eosinophils % (Manual) 0, Basophils % (Manual) 0, Band Neutrophils 7, Polychromasia SLIGHT, Hypochromasia SLIGHT, Anisocytosis SLIGHT, Prothrombin Time 14.8, INR Comment 1.2, Activated Partial Thromboplast Time 34, Sodium Level 137, Potassium Level 3.7, Chloride Level 105, Carbon Dioxide Level 21, Anion Gap 11, Blood Urea Nitrogen 49, Creatinine 1.81, Estimat Glomerular Filtration Rate 27, BUN/Creatinine Ratio 27 , Glucose Level 146, Lactic Acid Level 1.22, Calcium Level 8.5, Magnesium Level 1.7, Total Bilirubin 0.6, Aspartate Amino Transf (AST/SGOT) 38, Alanine Aminotransferase (ALT/SGPT) 52, Alkaline Phosphatase 102, Total Creatine Kinase 21, Creatine Kinase MB 1.7, Troponin I < 0.30, B-Type Natriuretic Peptide 1369.0 , Total Protein 5.8, Albumin 3.1, TSH Cache Testing 0.49, Valproic Acid ( Depakene) Level 21.4 02/25/17 02:11: Urine Color YELLOW, Urine Clarity CLEAR, Urine pH 5, Urine Specific [place] 1.015, Urine Protein NEGATIVE, Urine Glucose (UA) NEGATIVE, Urine Ketones NEGATIVE, Urine Nitrite NEGATIVE, Urine Bilirubin NEGATIVE, Urine Urobilinogen NORMAL, Urine Leukocyte Esterase NEGATIVE, Urine RBC (Auto) NEGATIVE, Urine RBC NONE, Urine WBC NONE, Urine Squamous Epithelial Cells RARE, Urine Crystals PRESENT, Urine Amorphous Sediment FEW ELÍAS URATES, Urine Bacteria TRACE, Urine Casts PRESENT, Urine Hyaline Casts 5-10, Urine Mucus NEGATIVE, Urine Culture Indicated NO 02/25/17 06:45: White Blood Count 3.8, Red Blood Count 3.20, Hemoglobin 9.2, Hematocrit 28, Mean Corpuscular Volume 88, Mean Corpuscular Hemoglobin 29, Mean Corpuscular Hemoglobin Concent 33, Red Cell Distribution Width 15.0, Platelet Count 128, Mean Platelet Volume 10.6, Neutrophils (%) (Auto) 83, Lymphocytes (%) (Auto) 5, Monocytes (%) (Auto) 8, Eosinophils (%) (Auto) 5, Basophils (%) (Auto) 0, Neutrophils # (Auto) 3.1, Lymphocytes # (Auto) 0.2, Monocytes # (Auto) 0.3, Eosinophils # (Auto) 0.2, Basophils # (Auto) 0.0, Sodium Level 138, Potassium Level 4.2, Chloride Level 108, Carbon Dioxide Level 19, Anion Gap 11, Blood Urea Nitrogen 48, Creatinine 1.73, Estimat Glomerular Filtration Rate 28, BUN/ Creatinine Ratio 28, Glucose Level 166, Calcium Level 8.1, Magnesium Level 1.6, Total Bilirubin 0.4, Aspartate Amino Transf (AST/SGOT) 34, Alanine Aminotransferase (ALT/SGPT) 45, Alkaline Phosphatase 90, Troponin I < 0.30, Total Protein 5.4, Albumin 2.8, Phosphorus Level 3.7 02/25/17 11:20: Glucometer 178 02/25/17 12:16: Troponin I < 0.30 02/25/17 15:42: Glucometer 200 02/25/17 21:24: Glucometer 195 02/26/17 05:02: White Blood Count 3.7, Red Blood Count 2.93, Hemoglobin 8.3, Hematocrit 25, Mean Corpuscular Volume 86, Mean Corpuscular Hemoglobin 28, Mean Corpuscular Hemoglobin Concent 33, Red Cell Distribution Width 14.5, Platelet Count 150, Mean Platelet Volume 10.2, Neutrophils (%) (Auto) 85, Lymphocytes (%) (Auto) 10 , Monocytes (%) (Auto) 6, Eosinophils (%) (Auto) 0, Basophils (%) (Auto) 0, Neutrophils # (Auto) 3.1, Lymphocytes # (Auto) 0.4, Monocytes # (Auto) 0.2, Eosinophils # (Auto) 0.0, Basophils # (Auto) 0.0, Sodium Level 138, Potassium Level 3.6, Chloride Level 110, Carbon Dioxide Level 18, Anion Gap 10, Blood Urea Nitrogen 57, Creatinine 1.90, Estimat Glomerular Filtration Rate 25, BUN/ Creatinine Ratio 30, Glucose Level 182, Calcium Level 8.0, Phosphorus Level 3.7 , Magnesium Level 2.1, Total Bilirubin 0.3, Aspartate Amino Transf (AST/SGOT) 30 , Alanine Aminotransferase (ALT/SGPT) 42, Alkaline Phosphatase 81, B-Type Natriuretic Peptide 964.7, Total Protein 5.2, Albumin 2.7 02/26/17 11:51: Glucometer 172 02/26/17 16:56: Glucometer 155 02/26/17 21:10: Glucometer 156 02/27/17 05:10: Sodium Level 141, Potassium Level 4.2, Chloride Level 111, Carbon Dioxide Level 20, Anion Gap 10, Blood Urea Nitrogen 66, Creatinine 2.00, Estimat Glomerular Filtration Rate 24, BUN/Creatinine Ratio 33, Glucose Level 134, Calcium Level 7.7 02/27/17 05:53: Glucometer 140 02/27/17 11:43: Glucometer 121 02/27/17 16:23: Glucometer 117 02/27/17 21:18: Glucometer 123 02/28/17 05:24: Glucometer 114 02/28/17 05:50: Sodium Level 143, Potassium Level 4.2, Chloride Level 114, Carbon Dioxide Level 19, Anion Gap 10, Blood Urea Nitrogen 62, Creatinine 1.81, Estimat Glomerular Filtration Rate 27, BUN/Creatinine Ratio 34, Glucose Level 95, Calcium Level 8.1 02/28/17 08:59: Sodium Level 142, Potassium Level 4.1, Chloride Level 113, Carbon Dioxide Level 20, Anion Gap 9, Blood Urea Nitrogen 60, Creatinine 1.84, Estimat Glomerular Filtration Rate 26, BUN/Creatinine Ratio 33, Glucose Level 131, Calcium Level 8.1, White Blood Count 6.7, Red Blood Count 3.25, Hemoglobin 9.3, Hematocrit 29 , Mean Corpuscular Volume 88, Mean Corpuscular Hemoglobin 29, Mean Corpuscular Hemoglobin Concent 33, Red Cell Distribution Width 14.9, Platelet Count 200, Mean Platelet Volume 9.4, Neutrophils (%) (Auto) 80, Lymphocytes (%) (Auto) 8, Monocytes (%) (Auto) 11, Eosinophils (%) (Auto) 0, Basophils (%) (Auto) 0, Neutrophils # (Auto) 5.3, Lymphocytes # (Auto) 0.6, Monocytes # (Auto) 0.8, Eosinophils # (Auto) 0.0, Basophils # (Auto) 0.0 03/01/17 05:15: Sodium Level 143, Potassium Level 4.5, Chloride Level 114, Carbon Dioxide Level 22, Anion Gap 7, Blood Urea Nitrogen 50, Creatinine 1.54, Estimat Glomerular Filtration Rate 32, BUN/Creatinine Ratio 32, Glucose Level 104, Calcium Level 7.8, White Blood Count 5.3, Red Blood Count 2.96, Hemoglobin 8.3, Hematocrit 26 , Mean Corpuscular Volume 88, Mean Corpuscular Hemoglobin 28, Mean Corpuscular Hemoglobin Concent 32, Red Cell Distribution Width 14.8, Platelet Count 175, Mean Platelet Volume 9.3, Neutrophils (%) (Auto) 78, Lymphocytes (%) (Auto) 12, Monocytes (%) (Auto) 10, Eosinophils (%) (Auto) 1, Basophils (%) (Auto) 0, Neutrophils # (Auto) 4.1, Lymphocytes # (Auto) 0.6, Monocytes # (Auto) 0.5, Eosinophils # (Auto) 0.1, Basophils # (Auto) 0.0, B-Type Natriuretic Peptide 798.3 Discussion & Recommendations patient in hospital doing better. Patient discharged back to [facility] Discharge Home Medications: Active Scripts Active Namenda (Memantine HCl) 10 Mg Tablet 10 Mg PO HS 30 Days Namenda (Memantine HCl) 5 Mg Tablet 5 Mg PO DAILY 30 Days Levaquin (Levofloxacin) 500 Mg Tablet 500 Mg PO UD 3 Days Ferrous Sulfate 325 Mg Tablet 325 Mg PO DAILY 30 Days Reported Risperidone Odt (Risperidone) 0.25 Mg Tab.rapdis 0.25 Mg PO DAILY Tylenol Extra Strength (Acetaminophen) 500 Mg Tablet 500 Mg PO Q6H PRN Trazodone HCl 50 Mg Tablet 50 Mg PO HS Simvastatin 10 Mg Tablet 20 Mg PO HS Saline Nasal [place] (Sodium Chloride) 30 Ml [place] 2 Sprays NS Q8H PRN Risperidone Odt (Risperidone) 0.5 Mg Tab.rapdis 0.5 Mg PO 1600 Potassium Chloride 20 Meq Tab.er.prt 20 Meq PO DAILY Ocuvite with Lutein Tablet (Vit A,C & E/Lutein/Minerals) 1 Each Tablet 1 Tab PO DAILY Multivitamins with Minerals (Multivitamin with Minerals) 1 Each Tablet 1 Tab PO DAILY Melatonin 3 Mg Tablet 3 Mg PO HS Imodium A-D (Loperamide HCl) 2 Mg Tablet 2 Mg PO UD PRN Hydroxyzine HCl 25 Mg Tablet 25 Mg PO BID Furosemide 40 Mg Tablet 40 Mg PO DAILY Exelon (Rivastigmine) 9.5 Mg Patch 9.5 Mg TD DAILY Iprat-Albut 0.5-3(2.5) mg/3 ml (Ipratropium/Albuterol Sulfate) 3 Ml Ampul.neb 3 Ml NEB QID Depakote Sprinkle (Divalproex Sodium) 125 Mg Cap 125 Mg PO DAILY Citalopram HBr (Citalopram Hydrobromide) 10 Mg Tablet 10 Mg PO DAILY Atenolol 50 Mg Tablet 50 Mg PO DAILY NOTIFY PCP IF BP >160/90 HOLD BP MEDICATION IF BP <110/60 Instructions to patient/family Please see electronic discharge instructions given to patient. Clinical Quality Measures DVT/VTE Risk/Contraindication: Risk Factor Score Per Nursin RFS Level Per Nursing on Admit: 4+=Very High PEE PINTO DO Mar 03, 2017 07:29
== END 2017-03-01 15:35 | DRG 291 ==
LOC: EDUNIT# 00:32 → ER 00:34 → ICU 02:30 → 4TH 02-26 13:08
PROVIDERS: ADMIT Family Medicine; ATTEND Family Medicine
DX: I13.0 Hypertensive heart and chronic kidney disease with heart failure and stage 1 through stage 4 chronic kidney disease, or unspecified chronic kidney disease (principal); I50.31 Acute diastolic (congestive) heart failure; N18.9 Chronic kidney disease, unspecified; J18.9 Pneumonia, unspecified organism; N17.9 Acute kidney failure, unspecified; J98.11 Atelectasis; F03.91 Unspecified dementia, unspecified severity, with behavioral disturbance; Z66 Do not resuscitate; Z23 Encounter for immunization; R09.02 Hypoxemia; E86.9 Volume depletion, unspecified; E86.0 Dehydration; I95.9 Hypotension, unspecified; E11.9 Type 2 diabetes mellitus without complications; E03.9 Hypothyroidism, unspecified; I25.10 Atherosclerotic heart disease of native coronary artery without angina pectoris; I48.91 Unspecified atrial fibrillation; R53.81 Other malaise; J30.2 Other seasonal allergic rhinitis; D64.9 Anemia, unspecified; M25.511 Pain in right shoulder; M19.91 Primary osteoarthritis, unspecified site; R47.02 Dysphasia; G47.9 Sleep disorder, unspecified; F32.9 Major depressive disorder, single episode, unspecified; R26.2 Difficulty in walking, not elsewhere classified; Z87.440 Personal history of urinary (tract) infections
CPT/HCPCS: 36415; 51702; 71010; 71020; 80048; 80053; 80164; 81000; 82550; 82553; 82962; 83605; 83735; 83880; 84100; 84443; 84484; 85007; 85025; 85027; 85610; 85730; 87040; 87804; 93005; 93041; 93306; 94640; 94664; 94760; 96361; 96374; 96375

== ENCOUNTER 2017-05-02 06:26 | Inpatient (IN) | payer MEDICARE ==
[~2017-05-02] VITALS: Ht 165.1 cm; Wt 70.6 kg
[~2017-05-02 06:26] MED LIST changes: +FERR-74 PO; +LEVO500T2 PO; +MEMA10TA2 PO; +RISP0.2549 PO; -RISP0.2552 PO; -SODI30SP2 NS; +SODI30SP2 NSEACH; +[UNRECOGNIZED DRUG - CODE] PO; -[UNRECOGNIZED DRUG - CODE] PO
[2017-05-02 06:42] LABS: BASOPHILS % (AUTO) 0 % (0-10); EOSINOPHILS # (AUTO) 0.2 10^3/uL (0.0-0.3); EOSINOPHILS % (AUTO) 4 % (0-10); HEMATOCRIT 32 % (35-52); HEMOGLOBIN 9.9 G/DL (11.5-16.0); LYMPHOCYTES # (AUTO) 0.8 X 10^3 (1.0-4.0); LYMPHOCYTES % (AUTO) 19 % (12-44); MEAN CORPUSCULAR HEMOGLOBIN 29 PG (25-34); MEAN CORPUSCULAR HGB CONC 31 G/DL (32-36); MEAN CORPUSCULAR VOLUME 92 FL (80-99); MONOCYTES # (AUTO) 0.4 X 10^3 (0.0-1.0); MONOCYTES % (AUTO) 11 % (0-12); NEUTROPHILS # (AUTO) 2.6 X 10^3 (1.8-7.8); NEUTROPHILS % (AUTO) 66 % (42-75); PLATELET COUNT 149 10^3/uL (130-400); RED BLOOD COUNT 3.45 10^6/uL (4.35-5.85); RED CELL DISTRIBUTION WIDTH 14.2 % (10.0-14.5)
[2017-05-02] MEDS ORDERED: RT-ALBUTEROL/IPRATROPIUM 3 ML (DUONEB) VIAL INH ONE (06:45)
[2017-05-02 07:02] LABS: BUN/CREATININE RATIO 10; CARBON DIOXIDE 37 MMOL/L (21-32); CHLORIDE 98 MMOL/L (98-107); CREATININE SERUM 1.26 MG/DL (0.60-1.30); POTASSIUM 3.3 MMOL/L (3.6-5.0); SODIUM 144 MMOL/L (135-145)
[2017-05-02 07:03] LABS: ALANINE AMINOTRANSFERASE < 6 U/L (0-55); ALBUMIN 2.9 GM/DL (3.2-4.5); ALKALINE PHOSPHATASE 74 U/L (40-136); BILIRUBIN,TOTAL 0.6 MG/DL (0.1-1.0); CALCIUM 8.3 MG/DL (8.5-10.1); GFR ESTIMATED 40; GLUCOSE 92 MG/DL (70-105); MAGNESIUM 1.7 MG/DL (1.8-2.4); TOTAL PROTEIN 5.4 GM/DL (6.4-8.2)
--- NOTE | 2017-05-02 07:29 | Diagnostic Imaging Report ---
INDICATION: Shortness of air COMPARISON: 02/28/2017 FINDINGS: Bilateral infiltrates and bilateral pleural fluid greater right than left are redemonstrated finding. The right-sided fluid volume is increased. No pneumothorax. IMPRESSION: Bilateral infiltrates and pleural effusions increased on the right in the interim. Dictated by: Dictated on workstation # [id number]
[2017-05-02 07:34] LABS: FREE T4 (FREE THYROXINE) 1.11 NG/DL (0.70-1.48)
--- NOTE | 2017-05-02 07:39 | ED Respiratory ---
General Chief Complaint: Respiratory Problems Stated Complaint: EDEMA Nursing Triage Note: PT BROUGHT IN BY [facility] FROM [facility] WITH C/O SOA AND BILAT LOWER EXTREMITY EDEMA. PT HAS HX OF CHF AND CURRENTLY TAKES LASIX PO. SHE HAS WET, NON PRODUCTIVE COUGH AT THIS TIME. PT IS AFEBRILE. Source: patient, EMS, halfway records, old records Exam Limitations: clinical condition (dementia) History of Present Illness Time seen by provider: 06:27 Initial Comments This 87-year-old woman presents to the emergency room from the [facility] with shortness of breath. She has been treated with azithromycin since April 30. She is a patient of Dr. Elissa sullivan. She had a breathing treatment shortly before arrival but is still hypoxic. O2 sat was 88 percent on 2 L and in the 90s on 4 L. She has increased work of breathing. She reports feeling fairly well upon arrival. She also has notable edema of the lower extremities which she claims is chronic. She was admitted in January of this year for CHF and pneumonia. She is afebrile. Her history is a little limited due to dementia. Review of her chart notes an echocardiogram from January 2017 revealing valvular disease and diastolic dysfunction. Allergies and Home Medications Allergies Coded Allergies: cephalexin (Verified Allergy, Unknown, 02/25/17) glyburide (Verified Allergy, Unknown, 02/25/17) hydrochlorothiazide (Verified Allergy, Unknown, 02/25/17) lisinopril (Verified Allergy, Unknown, 02/25/17) metformin (Verified Allergy, Unknown, 02/25/17) rofecoxib (Verified Allergy, Unknown, 02/25/17) Home Medications Acetaminophen 500 Mg Tablet, 500 MG PO Q6H PRN for PAIN-MILD, (Reported) Atenolol 50 Mg Tablet, 50 MG PO DAILY, (Reported) NOTIFY PCP IF BP >160/90 OR 100/60. HOLD BP MEDICATION IF BP <110/60 Azithromycin 250 Mg Tablet, 250 MG PO 1700 for 4 Days, (Reported) 4 DAY THEARPY START DATE 04-30-17 END DATE 05-04-17 Citalopram Hydrobromide 10 Mg Tablet, 10 MG PO DAILY, (Reported) Diphenhydramine HCl 25 Mg Tablet, 25 MG PO Q8H PRN for ITCHING, (Reported) Divalproex Sodium 125 Mg Cap, 125 MG PO 1400, (Reported) Ferrous Sulfate 325 Mg Tablet, 325 MG PO DAILY, (Reported) Furosemide 40 Mg Tablet, 40 MG PO DAILY, (Reported) Ipratropium/Albuterol Sulfate 3 Ml Ampul.neb, 3 ML NEB QID, (Reported) Lactulose 20 Gm/30 Ml Solution, 30 ML PO DAILY PRN for CONSTIPATION-3RD LINE, ( Reported) Loperamide HCl 2 Mg Tablet, PO UD PRN for LOOSE STOOLS, (Reported) GIVE 2 TABS AFTER 1ST LOOSE STOOL, THEN 1 TAB AFTER SUBSEQUENT LOOSE STOOLS, MAX 4 TABS IN 24H Melatonin 3 Mg Tablet, 3 MG PO HS, (Reported) Memantine HCl 10 Mg Tablet, 10 MG PO BID, (Reported) Multivitamin with Minerals 1 Each Tablet, 1 TAB PO DAILY, (Reported) Potassium Chloride 20 Meq Tab.er.prt, 20 MEQ PO DAILY, (Reported) Risperidone 0.5 Mg Tab.rapdis, 0.5 MG PO 1400, (Reported) Risperidone 0.25 Mg Tab.rapdis, 0.25 MG PO DAILY, (Reported) Rivastigmine 9.5 Mg Patch, 9.5 MG TD DAILY, (Reported) Simvastatin 10 Mg Tablet, 20 MG PO HS, (Reported) TAKES 2 (10MG) TABLETS Sodium Chloride 30 Ml Climax, 2 SPRAYS NSEACH Q8H PRN for RHINITIS, (Reported) Trazodone HCl 50 Mg Tablet, 50 MG PO HS, (Reported) Vit A,C & E/Lutein/Minerals 1 Each Tablet, 1 TAB PO DAILY, (Reported) Constitutional: no symptoms reported EENTM: no symptoms reported Respiratory: see HPI Cardiovascular: see HPI Gastrointestinal: no symptoms reported Genitourinary: no symptoms reported Musculoskeletal: no symptoms reported Skin: no symptoms reported Psychiatric/Neurological: No Symptoms Reported Hematologic/Lymphatic: No Symptoms Reported Past Andhxng-Pboxxr-Gprejd Hx Patient Social History Alcohol Use: Denies Use Recreational Drug Use: No Smoking Status: Unknown if Ever Smoked 2nd Hand Smoke Exposure: No Recent Foreign Travel: No Contact w/Someone Who Travel: No Recent Infectious Disease Expo: No Recent Hopitalizations: No Immunizations Up To Date Tetanus Booster (TDap): Unknown Seasonal Allergies Seasonal Allergies: Yes Surgeries History of Surgeries: Yes Surgeries: Appendectomy, Tonsillectomy, Tubal Ligation Respiratory History of Respiratory Disorde: Yes (DYSPNEA) Respiratory Disorders: Pneumonia Cardiovascular History of Cardiac Disorders: Yes (CHF with diastolic dysfunction) Cardiac Disorders: Coronary Artery Disease, High Cholesterol, Hypertension, Valvular Heart Disease Neurological History of Neurological Disord: Yes Neurological Disorders: Dementia Reproductive System Sexually Transmitted Disease: No HIV/AIDS: No 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 Genitourinary History of Genitourinary Disor: Yes Genitourinary Disorders: Bladder Infection Gastrointestinal History of Gastrointestinal Di: No (UNKNOWN) Musculoskeletal History of Musculoskeletal Dis: Yes (POOR MOBILITY; CHRONIC PAIN ; RIGHT SHOULDER PAIN ; GENERALIZED WEAKNESS) Musculoskeletal Disorders: Arthritis Endocrine History of Endocrine Disorders: Yes Endocrine Disorders: Hypothyroidsim, Diabetes, Non-Insulin dep HEENT History of HEENT Disorders: Yes (DYSPHASIA) Cancer History of Cancer: No Psychosocial History of Psychiatric Problem: Yes Behavioral Health Disorders: Sleep Difficulties, Depression Integumentary History of Skin or Integumenta: No Blood Transfusions History of Blood Disorders: No Adverse Reaction to a Blood Tr: No Physical Exam Vital Signs Vital Sign - Last 12Hours Capillary Refill : Less Than 3 Seconds General Appearance: WD/WN, no apparent distress HEENT: PERRL/EOMI, normal ENT inspection Neck: normal inspection Respiratory: lungs clear, decreased breath sounds (diminished in the bases), accessory muscle use, other (increased work of breathing) Cardiovascular: regular rate, rhythm, no murmur, other (moderate pitting edema equal bilaterally in the lower extremities) Gastrointestinal: non tender, soft Extremities: non-tender, pedal edema, swelling Neurologic/Psychiatric: cleat layer II-XII nml as tested, no motor/sensory deficits, alert, normal mood/affect Skin: normal color, warm/dry Focused Exam Evaluation Lactate Level Laboratory Tests 05/02/17 07:55: Lactic Acid Level 0.61 Lactic Acid Level Laboratory Tests Test 05/02/17 07:55 Lactic Acid Level 0.61 MMOL/L (0.50-2.00) Progress/Results/Core Measures Suspected Sepsis Recent Fever Within 48 Hours: No Infection Criteria Present: None New/Unexplained Altered Menta: No Sepsis Screen: No Definite Risk Sepsis Diagnosis: SIRS Temperature:96.1 Pulse: 70 Respiratory Rate: 20 Blood Pressure 168 /63 Mean: 98 Laboratory Tests 05/02/17 07:55: Lactic Acid Level 0.61 Laboratory Tests 05/02/17 06:35: Total Bilirubin 0.6 Results/Orders Lab Results Laboratory Tests Test 05/02/17 06:35 05/02/17 07:55 Range/Units White Blood Count 4.0 L 4.3-11.0 10^3/uL Red Blood Count 3.45 L 4.35-5.85 10^6/uL Hemoglobin 9.9 L 11.5-16.0 G/DL Hematocrit 32 L 35-52 % Mean Corpuscular Volume 92 80-99 FL Mean Corpuscular Hemoglobin 29 25-34 PG Mean Corpuscular Hemoglobin Concent 31 L 32-36 G/DL Red Cell Distribution Width 14.2 10.0-14.5 % Platelet Count 149 130-400 10^3/uL Mean Platelet Volume 9.0 7.4-10.4 FL Neutrophils (%) (Auto) 66 42-75 % Lymphocytes (%) (Auto) 19 12-44 % Monocytes (%) (Auto) 11 0-12 % Eosinophils (%) (Auto) 4 0-10 % Basophils (%) (Auto) 0 0-10 % Neutrophils # (Auto) 2.6 1.8-7.8 X 10^3 Lymphocytes # (Auto) 0.8 L 1.0-4.0 X 10^3 Monocytes # (Auto) 0.4 0.0-1.0 X 10^3 Eosinophils # (Auto) 0.2 0.0-0.3 10^3/uL Basophils # (Auto) 0.0 0.0-0.1 10^3/uL Sodium Level 144 135-145 MMOL/L Potassium Level 3.3 L 3.6-5.0 MMOL/L Chloride Level 98 98-107 MMOL/L Carbon Dioxide Level 37 H 21-32 MMOL/L Anion Gap 9 5-14 MMOL/L Blood Urea Nitrogen 13 7-18 MG/DL Creatinine 1.26 0.60-1.30 MG/DL Estimat Glomerular Filtration Rate 40 BUN/Creatinine Ratio 10 Glucose Level 92 70-105 MG/DL Calcium Level 8.3 L 8.5-10.1 MG/DL Magnesium Level 1.7 L 1.8-2.4 MG/DL Total Bilirubin 0.6 0.1-1.0 MG/DL Aspartate Amino Transf (AST/SGOT) 13 5-34 U/L Alanine Aminotransferase (ALT/SGPT) < 6 0-55 U/L Alkaline Phosphatase 74 40-136 U/L C-Reactive Protein High Sensitivity 1.45 H 0.00-0.50 MG/DL B-Type Natriuretic Peptide 320.4 H <100.0 PG/ML Total Protein 5.4 L 6.4-8.2 GM/DL Albumin 2.9 L 3.2-4.5 GM/DL Thyroid Stimulating Hormone (TSH) 0.45 0.35-4.94 UIU/ML Free Thyroxine 1.11 0.70-1.48 NG/DL Valproic Acid (Depakene) Level 15.2 L 50.0-100.0 UG/ML Lactic Acid Level 0.61 0.50-2.00 MMOL/L Micro Results Microbiology 05/02/17 Blood Culture - Preliminary, Resulted Corynebacterium Species 05/02/17 Influenza Types A,B Antigen (FRANCIS) - Final, Complete My Orders Orders - MANDY SNOWDEN MD BNP (05/02/17 06:32) Cbc With Automated Diff (05/02/17 06:32) Comprehensive Metabolic Panel (05/02/17 06:32) Hs C Reactive Protein (05/02/17 06:32) Magnesium (05/02/17 06:32) Saline Lock/Iv-Start (05/02/17 06:32) Ekg Tracing (05/02/17 06:32) O2 (05/02/17 06:32) Monitor-Rhythm Ecg Trace Only (05/02/17 06:32) Chest 1 View, Ap/Pa Only (05/02/17 06:32) Albuterol/Ipra Inhalation Soln (Duoneb I (05/02/17 06:45) Thyroid Stimulating Hormone (05/02/17 06:38) Free T4 (Free Thyroxine) (05/02/17 06:38) Valproic Acid (05/02/17 07:12) Blood Culture (05/02/17 07:36) Lactic Acid Analyzer (05/02/17 07:36) Levofloxacin 750 Mg/150 Ml Iv (Levaquin (05/02/17 07:45) Influenza A And B Antigens (05/02/17 07:39) Potassium Chloride (Tablet) (Klor Con Ta (05/02/17 08:00) Furosemide Injection (Lasix Injection) (05/02/17 08:00) Medications Given in ED Vital Signs/I&O Vital Sign - Last 12Hours 05/02/17 05/02/17 05/02/17 06:30 06:30 06:46 Temp 96.1 Pulse 70 Resp 20 B/P (MAP) 168/63 (98) Pulse Ox 86 99 99 O2 Delivery Room Air Nasal Cannula Nasal Cannula O2 Flow Rate 3.00 3.00 3.00 Capillary Refill : Less Than 3 Seconds Blood Pressure Mean: 98 Progress Note : Progress Note Patient remained stable on oxygen by 4 L by nasal cannula. DuoNeb was administered. Patient was suspected of having pneumonia based off of chest x- ray and history. Blood cultures and lactic acid were drawn. Levaquin was initiated. Potassium was replaced orally. BNP was mildly elevated and there was increase in pleural effusion. Lasix 40 mg IV was administered after discussing with Dr. Vernon. Levaquin was selected as initial antibiotic because of penicillin allergy. She was on azithromycin at the halfway. ECG Initial ECG Impression Date: May 02, 2017 Initial ECG Impression Time: 07:09 Initial ECG Rate: 63 Initial ECG Rhythm: Normal Sinus Initial ECG Intervals: Normal Initial ECG Impression: Normal Comment Normal sinus rhythm with no ST elevation or depression. No abnormal intervals or axis deviation. Diagnostic Imaging Diagonstic Imaging: Xray Plain Films/CT/US/NM/MRI: chest Comments Chest x-ray viewed by me and report reviewed. See report below: NAME: MARLEY MAYES [facility] REC#: [id number] PT STATUS: REG ER : 1930 PHYSICIAN: MANDY SNOWDEN MD ADMIT DATE: 05/02/17/ER Draft Date of Exam:05/02/17 CHEST 1 VIEW, AP/PA ONLY INDICATION: Shortness of air COMPARISON: 02/28/2017 FINDINGS: Bilateral infiltrates and bilateral pleural fluid greater right than left are redemonstrated finding. The right-sided fluid volume is increased. No pneumothorax. IMPRESSION: Bilateral infiltrates and pleural effusions increased on the right in the interim. Dictated on workstation # [id number] Dict: 05/02/17 0707 Trans: 05/02/17 0728 [facility] [id number] Interpreted by: ASHKAN BENJAMIN Departure Communication (Admissions) Time/Spoke to Admitting Phy: 07:[address] Campuzano Time/Spoke to Consulting Phy: 07:55 Communication/Consulting Dr. Vernon Impression Impression: Primary Impression: Pneumonia of both lower lobes Qualified Codes: J18.9 - Pneumonia, unspecified organism Additional Impressions: Congestive heart failure Qualified Codes: I50.33 - Acute on chronic diastolic (congestive) heart failure Hypoxia Hypokalemia Pleural effusion, right Disposition: ADMITTED INPATIENT Condition: Improved Admissions Decision to Admit Reason: Admit from ER (General) Decision to Admit/Date: May 02, 2017 Time/Decision to Admit Time: 07:00 Departure-Patient Inst. Referrals: PEE PINTO DO (PCP/Family) Primary Care Physician MANDY SNOWDEN MD May 02, 2017 07:39
[2017-05-02] MEDS ORDERED: LEVOFLOXACIN 750 MG/150 ML IV 150 ML IV ONE (07:45)
[2017-05-02] MEDS ORDERED: KCL 10 MEQ TAB (MICRO K) PO ONE (08:00)
[2017-05-02] MEDS ORDERED: FUROSEMIDE 40 MG/4 ML INJ (LASIX) IVP ONE (08:00)
[2017-05-02 08:59] VITALS: BP 167/67
[2017-05-02 11:13] VITALS: BP 156/71
--- NOTE | 2017-05-02 12:40 | History & Physical-Hospitalist ---
HPI History of Present Illness: HPI/Chief Complaint The patient is an 87-year-old white female who is a resident of [facility] a local assisted. She was sent to the emergency room early this morning with the observation by staff that she was increasingly short of breath. She apparently been started on Zithromax on 04/30. She had had a nebulizer treatment prior to arrival but remained hypoxic at arrival. Her O2 saturation was 88 percent on 2 L by nasal cannula. This was increased to 4 L and the SaO2 rere to the 90s. She exhibited impressive edema in the lower extremities which she stated was chronic. She is known to be demented and takes multiple medications for this. Echocardiogram from January 2017 was reviewed. The left ventricle appeared normal with normal cavity size and an ejection fraction of 55-65 percent. The left atrium was described as moderately to severely dilated. The right ventricular cavity size was increased with right ventricular wall thickening. The right atrium was moderately to severely dilated. There was aortic valve sclerosis. The mitral valve was moderately to severely calcified at the annulus is mild regurgitation reported. The tricuspid valve exhibited mild to moderate regurgitation. The pulmonary artery pressure was estimated to be 40 mmHg. She is quite confused but relatively comedic Source: patient Exam Limitations: other (dementia) Date Seen 05/02/17 Time Seen by Provider: 12:50 Attending Physician Keena Campuzano DO PCP Grant Castillo DO Referring Physician Date of Admission May 02, 2017 at 07:57 Home Medications & Allergies Home Medications Reviewed patient Home Medication Reconciliation Form Allergies Allergies Coded Allergies cephalexin (Verified Allergy, Unknown, 02/25/17) glyburide (Verified Allergy, Unknown, 02/25/17) hydrochlorothiazide (Verified Allergy, Unknown, 02/25/17) lisinopril (Verified Allergy, Unknown, 02/25/17) metformin (Verified Allergy, Unknown, 02/25/17) rofecoxib (Verified Allergy, Unknown, 02/25/17) Past Dewjrng-Bydgxb-Jhxtvr Hx Patient Social History Alcohol Use: Denies Use Recreational Drug Use: No Smoking Status: Unknown if Ever Smoked 2nd Hand Smoke Exposure: No Recent Foreign Travel: No Contact w/other who traveled: No Recent Hopitalizations: No Recent Infectious Disease Expo: No Immunizations Up To Date Tetanus Booster (TDap): Unknown Seasonal Allergies Seasonal Allergies: Yes Surgeries Yes Appendectomy, Tonsillectomy, Tubal Ligation Respiratory Yes (DYSPNEA) Cardiovascular Yes (CHF with diastolic dysfunction) Coronary Artery Disease, High Cholesterol, Hypertension, Valvular Heart Disease Neurological Yes Dementia Reproductive System Sexually Transmitted Disease: No HIV/AIDS: No 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 Genitourinary Yes Bladder Infection Gastrointestinal No (UNKNOWN) Musculoskeletal Yes (POOR MOBILITY; CHRONIC PAIN ; RIGHT SHOULDER PAIN ; GENERALIZED WEAKNESS) Arthritis Endocrine History of Endocrine Disorders: Yes Endocrine Disorders: Hypothyroidsim, Diabetes, Non-Insulin dep HEENT History of HEENT Disorders: Yes (DYSPHASIA) Cancer No Psychosocial History of Psychiatric Problem: Yes Behavioral Health Disorders: Sleep Difficulties, Depression Integumentary History of Skin or Integumenta: No Blood Transfusions History of Blood Disorders: No Adverse Reaction to a Blood Tr: No Review of Systems Constitutional: see HPI EENTM: no symptoms reported Respiratory: cough, dyspnea on exertion, short of breath Cardiovascular: no symptoms reported Gastrointestinal: no symptoms reported Genitourinary: no symptoms reported Musculoskeletal: no symptoms reported Skin: no symptoms reported Psychiatric/Neurological: See HPI Other With some prompting she relates that her lower legs have been swollen for some time but seemed to be getting worse. Physical Exam Physical Exam Vital Signs Vital Sign - Last 12Hours Capillary Refill : Less Than 3 Seconds General Appearance: No Apparent Distress, WD/WN Eyes: Bilateral Eye Normal Inspection HEENT: Normal ENT Inspection Neck: Normal Inspection Respiratory: Chest Non Tender, Lungs Clear, Normal Breath Sounds, No Accessory Muscle Use, No Respiratory Distress, Other (dullness to percussion in right base ) Cardiovascular: Regular Rate, Rhythm Gastrointestinal: Normal Bowel Sounds, No Organomegaly, Non Tender, Soft Back: Normal Inspection, No CVA Tenderness, No Vertebral Tenderness Neurologic/Psychiatric: Alert Skin: Normal Color Comments There was symmetric bilateral lower extremity edema with 3+ edema and pitting to the knees. Results Results/Procedures Lab Laboratory Tests 05/02/17 06:35 Assessment/Plan Admission Diagnosis The patient is a borderline qualifier for SIRS on the basis of a temperature of 96.1 and the presenting SaO2 at 86 percent. Chest x-ray is rather ambivalent and given the multitude of cardiac ailments this may represent congestive failure. Diagnosis: Pneumonia versus congestive heart failure. 2.venous stasis edema. 3.senile dementia of the Alzheimer's type Assessment and Plan MARA BARRERA MD May 02, 2017 12:40
--- NOTE | 2017-05-02 14:00 | Consultation-Cardiology ---
HPI-Cardiology Cardiology Consultation: Date of Consultation 05/02/17 Time Seen by Provider: 13:40 Date of Admission Attending Physician Keena Campuzano DO Admitting Physician Grant Castillo DO Consulting Physician ELIZABET MARTINEZ MD, MA, FACP, FACC, [facility] Primary boat carpenter: Dr Zhong HPI: Chief Complaint: Shortness of breath 87 yo woman with progressive exertional shortness of breath, transferred from her NH to ER here, admitted to Dr Campuzano with pneumonia, mild decomp CHF, mild hypokalemia. Currently reporting improvement of shortness of breath. Denies cp or palp or syncope Review of Systems-Cardiology Review of Systems Constitutional: malaise, tiredness, No weight loss, No weight gain, other (ROS unreliable due to patient being confused) Eyes: No vision change Ears/Nose/Throat: No nasal drainage Respiratory: As described under HPI Cardiovascular: As described under HPI Gastrointestinal: No diarrhea, No nausea, No vomiting Genitourinary: No dysuria Musculoskeletal: back pain (chronic) Skin: No rash, No ulcerations Psychiatric/Neurological: No focal weakness, No syncope Hematologic: No bleeding abnormalities [id number] Hx Patient Social History Alcohol Use: Denies Use Recreational Drug Use: No Smoking Status: Unknown if Ever Smoked 2nd Hand Smoke Exposure: No Recent Foreign Travel: No Recent Infectious Disease Expo: No Hospitalization with Isolation: Denies Immunizations Up To Date Tetanus Booster (TDap): Unknown Past Medical History PMH As described under Assessment. Family Medical History Family Medical History: She does not provide fam h/o early CAD or SCD Allergies and Home Medications Allergies Coded Allergies: cephalexin (Verified Allergy, Unknown, 02/25/17) glyburide (Verified Allergy, Unknown, 02/25/17) hydrochlorothiazide (Verified Allergy, Unknown, 02/25/17) lisinopril (Verified Allergy, Unknown, 02/25/17) metformin (Verified Allergy, Unknown, 02/25/17) rofecoxib (Verified Allergy, Unknown, 02/25/17) Home Medications Acetaminophen 500 Mg Tablet, 500 MG PO Q6H PRN for PAIN-MILD, (Reported) Atenolol 50 Mg Tablet, 50 MG PO DAILY, (Reported) NOTIFY PCP IF BP >160/90 HOLD BP MEDICATION IF BP <110/60 Citalopram Hydrobromide 10 Mg Tablet, 10 MG PO DAILY, (Reported) Divalproex Sodium 125 Mg Cap, 125 MG PO DAILY, (Reported) Ferrous Sulfate 325 Mg Tablet, 325 MG PO DAILY for 30 Days Prescribed by: DENISSE CHANDRA on 03/01/171116 Furosemide 40 Mg Tablet, 40 MG PO DAILY, (Reported) Hydroxyzine HCl 25 Mg Tablet, 25 MG PO BID, (Reported) Ipratropium/Albuterol Sulfate 3 Ml Ampul.neb, 3 ML NEB QID, (Reported) Levofloxacin 500 Mg Tablet, 500 MG PO UD for 3 Days Prescribed by: DENISSE CHANDRA on 03/01/171116 Loperamide HCl 2 Mg Tablet, 2 MG PO UD PRN for LOOSE STOOLS, (Reported) Melatonin 3 Mg Tablet, 3 MG PO HS, (Reported) Memantine HCl 5 Mg Tablet, 5 MG PO DAILY for 30 Days Prescribed by: DENISSE CHANDRA on 03/01/171118 Memantine HCl 10 Mg Tablet, 10 MG PO HS for 30 Days Prescribed by: DENISSE CHANDRA on 03/01/171118 Multivitamin with Minerals 1 Each Tablet, 1 TAB PO DAILY, (Reported) Potassium Chloride 20 Meq Tab.er.prt, 20 MEQ PO DAILY, (Reported) Risperidone 0.5 Mg Tab.rapdis, 0.5 MG PO 1600, (Reported) Risperidone 0.25 Mg Tab.rapdis, 0.25 MG PO DAILY, (Reported) Rivastigmine 9.5 Mg Patch, 9.5 MG TD DAILY, (Reported) Simvastatin 10 Mg Tablet, 20 MG PO HS, (Reported) Sodium Chloride 30 Ml [place], 2 SPRAYS NS Q8H PRN for RHINITIS, (Reported) Trazodone HCl 50 Mg Tablet, 50 MG PO HS, (Reported) Vit A,C & E/Lutein/Minerals 1 Each Tablet, 1 TAB PO DAILY, (Reported) Physical Exam-Cardiology Physical Exam Vital Signs/I&O Vital Sign - Last 12Hours 05/02/17 05/02/17 05/02/17 05/02/17 06:30 06:30 06:46 08:24 Temp 96.1 96.1 Pulse 70 70 Resp 20 20 B/P (MAP) 168/63 (98) Pulse Ox 86 99 99 99 O2 Delivery Room Air Nasal Cannula Nasal Cannula Nasal Cannula O2 Flow Rate 3.00 3.00 3.00 3.00 05/02/17 05/02/17 08:59 11:13 Temp 98.6 97.1 Pulse 72 69 Resp 18 17 B/P (MAP) 167/67 (100) 156/71 (99) Pulse Ox 93 97 O2 Delivery Nasal Cannula Nasal Cannula O2 Flow Rate 2.00 2.00 Capillary Refill : Less Than 3 Seconds Constitutional: No AAO x 3, No apparent distress, well-developed, well- nourished HEENT: EOMI, hearing is well preserved Neck: carotid pulses are 2 + bilaterally, with good upstrokes Respiratory: No accessory muscle use, other (fair bilat air entry; diminished at the bases, ling the R base) Cardiovascular: regular rate-rhythm, S1 and S2, systolic murmur (2/6 MSM at the card base) Gastrointestinal: No tender, soft, No guarding, No rebound, audible bowel sounds Extremities: No clubbing, No cyanosis, No significant edema Neurologic/Psychiatric: No oriented x 3, other (mildly confused), grossly intact (moves all limbs equally) Data Review Labs Laboratory Tests 05/02/17 06:35: White Blood Count 4.0L, Red Blood Count 3.45L, Hemoglobin 9.9L, Hematocrit 32L, Mean Corpuscular Volume 92, Mean Corpuscular Hemoglobin 29, Mean Corpuscular Hemoglobin Concent 31L, Red Cell Distribution Width 14.2, Platelet Count 149, Mean Platelet Volume 9.0, Neutrophils (%) (Auto) 66, Lymphocytes (%) (Auto) 19, Monocytes (%) (Auto) 11, Eosinophils (%) (Auto) 4, Basophils (%) (Auto) 0, Neutrophils # (Auto) 2.6, Lymphocytes # (Auto) 0.8L, Monocytes # (Auto) 0.4, Eosinophils # (Auto) 0.2, Basophils # (Auto) 0.0, Sodium Level 144, Potassium Level 3.3L, Chloride Level 98, Carbon Dioxide Level 37H, Anion Gap 9, Blood Urea Nitrogen 13, Creatinine 1.26, Estimat Glomerular Filtration Rate 40, BUN/ Creatinine Ratio 10, Glucose Level 92, Calcium Level 8.3L, Magnesium Level 1.7L , Total Bilirubin 0.6, Aspartate Amino Transf (AST/SGOT) 13, Alanine Aminotransferase (ALT/SGPT) < 6, Alkaline Phosphatase 74, C-Reactive Protein High Sensitivity 1.45H, B-Type Natriuretic Peptide 320.4H, Total Protein 5.4L, Albumin 2.9L, Thyroid Stimulating Hormone (TSH) 0.45, Free Thyroxine 1.11, Valproic Acid (Depakene) Level 15.2L 05/02/17 07:55: Lactic Acid Level 0.61 Microbiology 05/02/17 Influenza Types A,B Antigen (FRANCIS) - Final, Complete Laboratory Tests 05/02/17 06:35 A/P-Cardiology Assessment/Admission Diagnosis [place] [facility] [place]ive heart failure, acute on chronic diastolic Mild hypokalemia due to chronic diuretic therapy Hypertension 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
[2017-05-02] MEDS ORDERED: MEMA10TA2 PO (14:44)
[2017-05-02] MEDS ORDERED: AZIT500T2 PO (15:01)
[2017-05-02] MEDS: ENOXAPARIN 30 MG/0.3 ML (LOVENOX) SYR SC SCH (15:08)
[2017-05-02 15:46] VITALS: BP 156/71
[2017-05-02] MEDS ORDERED: RT-ALBUTEROL SULF 2.5 MG/3 ML PRE-MIX VIAL INH PRN (16:00)
[2017-05-02 16:42] VITALS: BP 152/68
[2017-05-02 20:38] VITALS: BP 174/74
[2017-05-02] MEDS: RT-ALBUTEROL SULF 2.5 MG/3 ML PRE-MIX VIAL INH SCH (21:46)
[2017-05-03] VITALS (7 sets, daily range): BP systolic 139–190; BP diastolic 63–73
[2017-05-03] MEDS: RT-ALBUTEROL SULF 2.5 MG/3 ML PRE-MIX VIAL INH SCH ×4 (02:43→21:36)
[2017-05-03 06:43] LABS: BASOPHILS % (AUTO) 0 % (0-10); EOSINOPHILS # (AUTO) 0.1 10^3/uL (0.0-0.3); EOSINOPHILS % (AUTO) 3 % (0-10); HEMATOCRIT 26 % (35-52); HEMOGLOBIN 8.2 G/DL (11.5-16.0); LYMPHOCYTES # (AUTO) 0.7 X 10^3 (1.0-4.0); LYMPHOCYTES % (AUTO) 24 % (12-44); MEAN CORPUSCULAR HEMOGLOBIN 29 PG (25-34); MEAN CORPUSCULAR HGB CONC 31 G/DL (32-36); MEAN CORPUSCULAR VOLUME 92 FL (80-99); MONOCYTES # (AUTO) 0.4 X 10^3 (0.0-1.0); MONOCYTES % (AUTO) 12 % (0-12); NEUTROPHILS # (AUTO) 1.9 X 10^3 (1.8-7.8); NEUTROPHILS % (AUTO) 61 % (42-75); PLATELET COUNT 123 10^3/uL (130-400); RED BLOOD COUNT 2.85 10^6/uL (4.35-5.85); RED CELL DISTRIBUTION WIDTH 13.7 % (10.0-14.5)
[2017-05-03] MEDS ORDERED: CATHETER FLUSH 10 ML SYR IV PRN (07:00)
[2017-05-03] MEDS ORDERED: INFLUENZA TRIvalent 2017-2018 0.5 ML/45 MCG SYR IM ONE (07:00)
[2017-05-03 07:03] LABS: CALCIUM 8.2 MG/DL (8.5-10.1); CREATININE SERUM 1.2 MG/DL (0.60-1.30); MAGNESIUM 1.5 MG/DL (1.8-2.4); POTASSIUM 3.2 MMOL/L (3.6-5.0)
[2017-05-03] MEDS ORDERED: KCL 20 MEQ TAB (K-DUR) PO NR ×2 (07:15→13:00)
--- NOTE | 2017-05-03 07:23 | Progress Note (SOAP) ---
Subjective Time Seen by Provider: 07:10 Subjective/Events-last exam patient states she feels better today. Patient has dementia. Pneumonia. CHF. Hypokalemia. Hypomagnesemia. Chest x-ray bilateral infiltrates. Hypoxemia Objective Exam Vital Signs Date Time Temp Pulse Resp B/P (MAP) Pulse Ox O2 Delivery O2 Flow Rate FiO2 05/03/17 04:41 99.1 79 16 168/70 (102) 94 Nasal Cannula 2.00 05/03/17 02:43 94 Nasal Cannula 2.00 05/03/17 00:36 99.2 77 16 149/65 (93) 94 Nasal Cannula 2.00 05/02/17 21:47 95 Nasal Cannula 2.00 05/02/17 20:38 99.4 80 17 174/74 (107) 96 Nasal Cannula 2.00 05/02/17 20:00 Nasal Cannula 2.00 05/02/17 16:42 98.0 77 17 152/68 (96) 98 Nasal Cannula 2.00 05/02/17 16:10 95 Nasal Cannula 2.00 05/02/17 15:46 22 98 05/02/17 15:46 98 Nasal Cannula 2.00 05/02/17 11:13 97.1 69 17 156/71 (99) 97 Nasal Cannula 2.00 05/02/17 08:59 98.6 72 18 167/67 (100) 93 Nasal Cannula 2.00 05/02/17 08:24 96.1 70 20 99 Nasal Cannula 3.00 I & O 05/03/17 06:59 Intake Total 1160 ml Output Total 782 ml Balance 378 ml Capillary Refill : Less Than 3 Seconds General Appearance: No Apparent Distress, Thin HEENT: Normal ENT Inspection Neck: Normal Inspection Respiratory: No Accessory Muscle Use, No Respiratory Distress, Crackles, Other (congestion with coughing) Cardiovascular: Regular Rate, Rhythm, No Murmur Gastrointestinal: non tender, soft Results Lab Laboratory Tests 05/03/17 06:35 Laboratory Tests 05/02/17 07:55: Lactic Acid Level 0.61 05/03/17 06:35: White Blood Count 3.0L, Red Blood Count 2.85L, Hemoglobin 8.2L, Hematocrit 26L, Mean Corpuscular Volume 92, Mean Corpuscular Hemoglobin 29, Mean Corpuscular Hemoglobin Concent 31L, Red Cell Distribution Width 13.7, Platelet Count 123L, Mean Platelet Volume 9.0, Neutrophils (%) (Auto) 61, Lymphocytes (%) (Auto) 24, Monocytes (%) (Auto) 12, Eosinophils (%) (Auto) 3, Basophils (%) (Auto) 0, Neutrophils # (Auto) 1.9, Lymphocytes # (Auto) 0.7L, Monocytes # (Auto) 0.4, Eosinophils # (Auto) 0.1, Basophils # (Auto) 0.0, Sodium Level 143, Potassium Level 3.2L, Chloride Level 98, Carbon Dioxide Level 38H, Anion Gap 7, Blood Urea Nitrogen 12, Creatinine 1.20, Estimat Glomerular Filtration Rate 43, BUN/ Creatinine Ratio 10, Glucose Level 91, Calcium Level 8.2L, Magnesium Level 1.5L Microbiology 05/02/17 Influenza Types A,B Antigen (FRANCIS) - Final, Complete Assessment/Plan Assessment/Plan Assess & Plan/Chief Complaint bilateral pneumonia. CHF. Hypoxemia. Renal insufficiency. Hypokalemia. Pleural effusion. Senile dementia. Patient pleasant. Hypomagnesemia Clinical Quality Measures DVT/VTE Risk/Contraindication: Risk Factor Score Per Nursin RFS Level Per Nursing on Admit: 4+=Very High PEE PINTO DO May 03, 2017 07:23
[2017-05-03] MEDS: MAGNESIUM 1 GM/100 ML IVPB 100 ML IV SCH ×2 (08:37→09:27)
[2017-05-03] MEDS ORDERED: MEMA10TA22 PO (08:52)
[2017-05-03] MEDS ORDERED: FERR-65 PO (08:52)
[2017-05-03] MEDS ORDERED: LACT20SO2 PO (08:52)
[2017-05-03] MEDS ORDERED: AZIT250T12 PO (08:52)
[2017-05-03] MEDS ORDERED: DIPH25TA65 PO (08:52)
[2017-05-03] MEDS ORDERED: ATENOLOL 50 MG (TENORMIN) TAB PO NR (13:00)
[2017-05-03] MEDS ORDERED: FUROSEMIDE 40 MG/4 ML INJ (LASIX) IVP NR (13:00)
--- NOTE | 2017-05-03 13:07 | Progress Note-Cardiology ---
Cardiology SOAP Progress Note Subjective: Sitting up in a chair at the bedside. Tearful this morning regarding her current illness. C/O bilat LE edema which she feels is much worse than her baseline. No c/o dyspnea, palpitations or chest pain. Objective: I&O/Vital Signs Vital Sign - Last 12Hours 05/03/17 05/03/17 05/03/17 05/03/17 04:41 08:00 09:00 09:42 Temp 99.1 98.7 Pulse 79 82 Resp 16 24 B/P (MAP) 168/70 (102) 190/73 (112) Pulse Ox 94 94 96 O2 Delivery Nasal Cannula Nasal Cannula Nasal Cannula Nasal Cannula O2 Flow Rate 2.00 2.00 2.00 2.00 05/03/17 12:00 Temp 99.1 Pulse 85 Resp 20 B/P (MAP) 139/63 (88) Pulse Ox 94 O2 Delivery Nasal Cannula O2 Flow Rate 2.00 Intake and Output 05/03/17 00:00 Intake Total 1060 ml Output Total 782 ml Balance 278 ml Weight (Pounds): 160 Weight (Ounces): 1.6 Weight (Calculated Kilograms): [id number] Constitutional: No AAO x 3, No apparent distress, well-developed, well- nourished Respiratory: No accessory muscle use, other (fair bilat air entry; diminished at the bases, ling the R base) Cardiovascular: regular rate-rhythm, S1 and S2, systolic murmur (2/6 MSM at the card base) Gastrointestional: No tender, soft, No guarding, No rebound, audible bowel sounds Extremities: No clubbing, No cyanosis, significant edema (3 (+) pitting feet to knees bilat) Neurologic/Psychiatric: No oriented x 3, other (mildly confused), grossly intact (moves all limbs equally) Results/Procedures: Labs Laboratory Tests 05/03/17 06:35: White Blood Count 3.0L, Red Blood Count 2.85L, Hemoglobin 8.2L, Hematocrit 26L, Mean Corpuscular Volume 92, Mean Corpuscular Hemoglobin 29, Mean Corpuscular Hemoglobin Concent 31L, Red Cell Distribution Width 13.7, Platelet Count 123L, Mean Platelet Volume 9.0, Neutrophils (%) (Auto) 61, Lymphocytes (%) (Auto) 24, Monocytes (%) (Auto) 12, Eosinophils (%) (Auto) 3, Basophils (%) (Auto) 0, Neutrophils # (Auto) 1.9, Lymphocytes # (Auto) 0.7L, Monocytes # (Auto) 0.4, Eosinophils # (Auto) 0.1, Basophils # (Auto) 0.0, Sodium Level 143, Potassium Level 3.2L, Chloride Level 98, Carbon Dioxide Level 38H, Anion Gap 7, Blood Urea Nitrogen 12, Creatinine 1.20, Estimat Glomerular Filtration Rate 43, BUN/ Creatinine Ratio 10, Glucose Level 91, Calcium Level 8.2L, Magnesium Level 1.5L , B-Type Natriuretic Peptide 334.4H, Thyroid Stimulating Hormone (TSH) 0.38 Microbiology 05/02/17 Influenza Types A,B Antigen (FRANCIS) - Final, Complete A/P: Assessment: Pneumonia, managed by the [facility] [place] Congestive heart failure, acute on chronic diastolic Echocardiogram of January [address] 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 Pimentel to return tomorrow Physician Assessment Physician Assessment She does not report cp or palp or syncope or shortness of breath Mildly confused Lungs: fair to good bilat air entry Cor: reg Ext: no c/c/e A&R * As documented in our note above that I updated (italics) and as noted below * Resume home beta-pedro luis * Monitor labs OLENA HARDY OCCUPATIONAL HEALTH NURSE May 03, 2017 13:07 ELIZABET MARTINEZ MD [facility] May 03, 2017 15:35
[2017-05-03] MEDS: CATHETER FLUSH 10 ML SYR IV SCH ×2 (13:38→22:30)
[2017-05-03] MEDS: ENOXAPARIN 30 MG/0.3 ML (LOVENOX) SYR SC SCH (13:41)
[2017-05-04 00:36] VITALS: BP 158/72
[2017-05-04] MEDS: RT-ALBUTEROL SULF 2.5 MG/3 ML PRE-MIX VIAL INH SCH ×4 (03:58→21:56)
[2017-05-04 04:20] VITALS: BP 153/58
[2017-05-04 06:01] VITALS: BP 153/58
[2017-05-04] MEDS: KCL 20 MEQ TAB (K-DUR) PO SCH (06:15)
[2017-05-04] MEDS: CATHETER FLUSH 10 ML SYR IV SCH ×3 (06:15→20:26)
[2017-05-04 06:28] LABS: HEMOGLOBIN 9.1 G/DL (11.5-16.0); MEAN PLATELET VOLUME 9.3 FL (7.4-10.4); RED BLOOD COUNT 3.17 10^6/uL (4.35-5.85); RED CELL DISTRIBUTION WIDTH 13.7 % (10.0-14.5); WHITE BLOOD COUNT 3.3 10^3/uL (4.3-11.0)
[2017-05-04 06:58] LABS: CALCIUM 8.4 MG/DL (8.5-10.1); CREATININE SERUM 1.22 MG/DL (0.60-1.30); MAGNESIUM 2.1 MG/DL (1.8-2.4); POTASSIUM 3.8 MMOL/L (3.6-5.0)
[2017-05-04 08:00] VITALS: BP 179/74
[2017-05-04] MEDS ORDERED: LEVOFLOXACIN 750 MG/D5W 150 ML (PRE-MIX) IV SCH (08:00)
[2017-05-04] MEDS: ATENOLOL 50 MG (TENORMIN) TAB PO SCH (08:08)
--- NOTE | 2017-05-04 08:08 | Progress Note (SOAP) ---
Subjective Time Seen by Provider: 08:05 Subjective/Events-last exam pneumonia, CHF, Dementia. Magnesium better. Potassium better. Patient received IV Lasix yesterday. Patient have basilar rails. Objective Exam Vital Signs Date Time Temp Pulse Resp B/P (MAP) Pulse Ox O2 Delivery O2 Flow Rate FiO2 05/04/17 06:01 98.9 76 17 153/58 (89) 96 Nasal Cannula 2.00 05/04/17 04:20 98.9 76 17 153/58 (89) 96 Nasal Cannula 2.00 05/04/17 03:58 89 Nasal Cannula 2.00 05/04/17 00:36 98.6 70 16 158/72 (100) 97 Nasal Cannula 2.00 05/03/17 21:36 96 Nasal Cannula 2.00 05/03/17 20:40 Nasal Cannula 2.00 05/03/17 20:00 98.7 89 20 164/68 (100) 97 Nasal Cannula 2.00 05/03/17 16:07 97 Nasal Cannula 2.00 05/03/17 16:00 98.6 76 22 151/70 (97) 99 Nasal Cannula 2.00 05/03/17 12:00 99.1 85 20 139/63 (88) 94 Nasal Cannula 2.00 05/03/17 09:42 96 Nasal Cannula 2.00 05/03/17 09:00 Nasal Cannula 2.00 I & O 05/04/17 07:00 Intake Total 1980 ml Output Total 980 ml Balance 1000 ml Capillary Refill : Less Than 3 Seconds General Appearance: No Apparent Distress, Thin HEENT: Normal ENT Inspection Neck: Normal Inspection Respiratory: No Accessory Muscle Use, No Respiratory Distress, Rales Cardiovascular: Regular Rate, Rhythm Gastrointestinal: non tender, soft Results Lab Laboratory Tests 05/03/17 15:30: Stool Occult Blood Immunoassay NEGATIVE 05/04/17 05:36: White Blood Count 3.3L, Red Blood Count 3.17L, Hemoglobin 9.1L, Hematocrit 29L, Mean Corpuscular Volume 92, Mean Corpuscular Hemoglobin 29, Mean Corpuscular Hemoglobin Concent 31L, Red Cell Distribution Width 13.7, Platelet Count 124L, Mean Platelet Volume 9.3, Sodium Level 144, Potassium Level 3.8, Chloride Level 98, Carbon Dioxide Level 34H, Anion Gap 12, Blood Urea Nitrogen 11, Creatinine 1.22, Estimat Glomerular Filtration Rate 42, BUN/Creatinine Ratio 9, Glucose Level 100, Calcium Level 8.4L, Magnesium Level 2.1 Microbiology 05/02/17 Blood Culture - Preliminary, Resulted No growth 05/02/17 Influenza Types A,B Antigen (FRANCIS) - Final, Complete Assessment/Plan Assessment/Plan Assess & Plan/Chief Complaint bilateral pneumonia. CHF. Hypoxemia. Renal insufficiency. Hypokalemia. Pleural effusion. Senile dementia. Patient pleasant. Hypomagnesemia. . 05/04/16. Pneumonia. Hypoxemia. Renal insufficiency better. Hypokalemia resolved. Hypomagnesemia resolved. Dementia. Patient states she's feeling better. Patient states the fluid in her legs are less Clinical Quality Measures DVT/VTE Risk/Contraindication: Risk Factor Score Per Nursin RFS Level Per Nursing on Admit: 4+=Very High PEE PINTO DO May 04, 2017 08:08
[2017-05-04] MEDS: FUROSEMIDE 40 MG (LASIX) TAB PO SCH (08:09)
--- NOTE | 2017-05-04 08:52 | Cardiology Progress Note ---
Subjective Date Seen by Provider: May 04, 2017 Time Seen by Provider: 09:01 Subjective/Events-last exam Patient is sitting up in bed. States dyspnea has improved. Reports episode of CP yesterday. Denies any CP today. Review of Systems General: No Night Sweats, No Fatigue, No Malaise HEENT: No Visual Changes, No Dysphasia, No Sore Throat Pulmonary: No Dyspnea, No Cough Cardiovascular: No: Chest Pain, Palpitations, Edema Gastrointestinal: No: Nausea, Vomiting Genitourinary: No Dysuria, No Frequency Musculoskeletal: No: neck pain, back pain Neurological: No: Weakness, Numbness Objective-Cardiology Exam Last Set of Vital Signs Vital Signs 05/04/17 06:01 Temp 98.9 Pulse 76 Resp 17 B/P (MAP) 153/58 (89) Pulse Ox 96 O2 Delivery Nasal Cannula O2 Flow Rate 2.00 Capillary Refill : Less Than 3 Seconds I&O Intake and Output 05/04/17 00:00 Intake Total 1980 ml Output Total 980 ml Balance 1000 ml Intake Oral 1780 ml IV Total 200 ml Output Urine Total 980 ml # Voids 2 # Bowel Movements 2 General: Alert, Oriented X3, Cooperative HEENT: Atraumatic, PERRLA Neck: Supple, No JVD, No Thyromegaly Lungs: Clear to Auscultation, Normal Air Movement Heart: Regular Rate, Normal S1, Normal S2, No Murmurs Abdomen: Normal Bowel Sounds, Soft, No Tenderness, No Hepatosplenomegaly, No Masses Extremities: No Clubbing, No Cyanosis, No Edema, Normal Pulses, No Tenderness/ Swelling Skin: No Rashes, No Breakdown, No Significant Lesion Neuro: Normal Gait, Normal Speech, Strength at 5/5 X4 Ext, Normal Tone, Sensation Intact Psych/Mental Status: Mental Status NL, Mood NL Results Lab Laboratory Tests 05/04/17 05:36 A/P-Cardiology Admission Diagnosis Pneumonia CHF HTN CKD Assessment/Plan Pneumonia,improving, continue antibiotics, managed by Med Service Congestive heart failure, acute on chronic diastolic dysfunction- most recent Echocardiogram of January 2017 showed LVEF 55-65%; grade 2 diastolic dysfunction ; right atrium mod to severely dilated; left atrium mod to severely dilated; mild MR with mod to severely calcified annulus; mild to mod TR; AoV sclerosis; PASP 40 mmHg. Maintained on beta pedro luis. Unable to tolerate LACI-I/ARB secondary to CKD and allergy to LACI-I. Hypokalemia and hyomagnesemia due to chronic diuretic therapy, replaced, improved. Continue to monitor. 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 CKD, stage 3- continue to monitor renal functions History of hypothyroidism, treated with thyroid replacement therapy Dementia Clinical Quality Measures DVT/VTE Risk/Contraindication: Risk Factor Score Per Nursin RFS Level Per Nursing on Admit: 4+=Very High PETER ARCEO May 04, 2017 08:52
--- NOTE | 2017-05-04 09:03 | Diagnostic Imaging Report ---
INDICATION: Hypoxemia. EXAMINATION: Portable chest at 8:24 AM. FINDINGS: There is a moderate sized right pleural effusion. There is vascular congestion. There is some atelectasis at both lung bases. There is a small left effusion. IMPRESSION: Vascular congestion with bilateral effusions, right greater than left. No significant change compared to the previous day. Dictated by: Dictated on workstation # [id number]
[2017-05-04] MEDS ORDERED: FUROSEMIDE 40 MG/4 ML INJ (LASIX) IVP NR (11:15)
--- NOTE | 2017-05-04 14:04 | Cardiology Progress Note ---
Subjective Date Seen by Provider: May 04, 2017 Time Seen by Provider: 13:00 Subjective/Events-last exam Patient was seen at bedside, sitting in a chair, reporting feeling better, denied any chest pain, breathing is better. Review of Systems General: No Chills, No Night Sweats, No Fatigue, No Malaise, No Appetite, No Other HEENT: No Head Aches, No Visual Changes, No Eye Pain, No Ear Pain, No Dysphasia , No Sinus Congestion, No Post Nasal Drip, No Sore Throat, No Other Pulmonary: No Dyspnea, No Cough, No Pleuritic Chest Pain, No Other Cardiovascular: Edema, No: Chest Pain, Palpitations, Orthopnea, Paroxysmal Noc. Dyspnea, Lt Headedness, Other Objective-Cardiology Exam Last Set of Vital Signs Vital Signs 05/04/17 05/04/17 08:00 09:30 Temp 98.3 Pulse 68 Resp 24 B/P (MAP) 179/74 (109) Pulse Ox 89 O2 Delivery Nasal Cannula O2 Flow Rate 2.50 Capillary Refill : Less Than 3 Seconds I&O Intake and Output 05/04/17 00:00 Intake Total 1980 ml Output Total 980 ml Balance 1000 ml Intake Oral 1780 ml IV Total 200 ml Output Urine Total 980 ml # Voids 2 # Bowel Movements 2 General: Alert, Oriented X3, Cooperative HEENT: Atraumatic, PERRLA Neck: Supple, No JVD, No Thyromegaly Lungs: Clear to Auscultation, Normal Air Movement Heart: Regular Rate, Normal S1, Normal S2, No Murmurs Abdomen: Normal Bowel Sounds, Soft, No Tenderness, No Hepatosplenomegaly, No Masses Extremities: No Clubbing, No Cyanosis, No Edema, Normal Pulses, No Tenderness/ Swelling Skin: No Rashes, No Breakdown, No Significant Lesion Neuro: Normal Gait, Normal Speech, Strength at 5/5 X4 Ext, Normal Tone, Sensation Intact Psych/Mental Status: Mental Status NL, Mood NL Results Lab Laboratory Tests 05/04/17 05:36 A/P-Cardiology Admission Diagnosis Pneumonia CHF HTN CKD Assessment/Plan Pneumonia, improving, continue antibiotics, managed by [facility] Congestive heart failure, acute on chronic diastolic dysfunction- most recent Echocardiogram of January 2017 showed LVEF 55-65%; grade 2 diastolic dysfunction ; right atrium mod to severely dilated; left atrium mod to severely dilated; mild MR with mod to severely calcified annulus; mild to mod TR; AoV sclerosis; PASP 40 mmHg. Maintained on beta pedro luis. Unable to tolerate LACI-I/ARB secondary to CKD and allergy to LACI-I. Hypokalemia and hyomagnesemia due to chronic diuretic therapy, replaced, improved. Continue to monitor. 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 CKD, stage 3- continue to monitor renal functions History of hypothyroidism, treated with thyroid replacement therapy Dementia Clinical Quality Measures DVT/VTE Risk/Contraindication: Risk Factor Score Per Nursin RFS Level Per Nursing on Admit: 4+=Very High YEHUDA ARRINGTON MD May 04, 2017 14:04
[2017-05-04] MEDS: ENOXAPARIN 30 MG/0.3 ML (LOVENOX) SYR SC SCH (14:42)
[2017-05-04 16:00] VITALS: BP 166/72
[2017-05-04] MEDS: TRIAMCINOLONE 0.5% OINT (KENALOG) 15 GM TUBE TOP SCH (20:26)
[2017-05-05] VITALS (7 sets, daily range): BP systolic 111–161; BP diastolic 64–74
[2017-05-05] MEDS: RT-ALBUTEROL SULF 2.5 MG/3 ML PRE-MIX VIAL INH SCH ×4 (02:22→19:38)
[2017-05-05 06:20] LABS: HEMOGLOBIN 8.1 G/DL (11.5-16.0); MEAN PLATELET VOLUME 9.2 FL (7.4-10.4); RED BLOOD COUNT 2.78 10^6/uL (4.35-5.85); RED CELL DISTRIBUTION WIDTH 13.6 % (10.0-14.5); WHITE BLOOD COUNT 3.3 10^3/uL (4.3-11.0)
[2017-05-05 06:45] LABS: ALBUMIN 2.4 GM/DL (3.2-4.5); BILIRUBIN,TOTAL 0.5 MG/DL (0.1-1.0); CALCIUM 8.1 MG/DL (8.5-10.1); CREATININE SERUM 1.31 MG/DL (0.60-1.30); POTASSIUM 3.8 MMOL/L (3.6-5.0); TOTAL PROTEIN 3.3 GM/DL (6.4-8.2)
[2017-05-05] MEDS: KCL 20 MEQ TAB (K-DUR) PO SCH (06:48)
[2017-05-05] MEDS: CATHETER FLUSH 10 ML SYR IV SCH ×3 (06:48→21:00)
--- NOTE | 2017-05-05 07:57 | Cardiology Progress Note ---
Subjective Date Seen by Provider: May 05, 2017 Time Seen by Provider: 07:55 Subjective/Events-last exam patient is laying down in bed, feeling better, breathing better, still having some cough, no chest pain, had a transient episode of tachycardia last night resolved spontaneously. Review of Systems General: No Chills, No Night Sweats, No Fatigue, No Malaise, No Appetite, No Other HEENT: No Head Aches, No Visual Changes, No Eye Pain, No Ear Pain, No Dysphasia , No Sinus Congestion, No Post Nasal Drip, No Sore Throat, No Other Pulmonary: Dyspnea, Cough, No Pleuritic Chest Pain, No Other Cardiovascular: No: Chest Pain, Palpitations, Orthopnea, Paroxysmal Noc. Dyspnea, Edema, Lt Headedness, Other Objective-Cardiology Exam Last Set of Vital Signs Vital Signs 05/05/17 05/05/17 04:00 07:24 Temp 97.2 Pulse 87 Resp 21 B/P (MAP) 111/74 (86) Pulse Ox 98 O2 Delivery Nasal Cannula O2 Flow Rate 2.00 Capillary Refill : Less Than 3 Seconds I&O Intake and Output 05/05/17 00:00 Intake Total 1240 ml Output Total 1250 ml Balance -10 ml Intake Oral 1070 ml IV Total 170 ml Output Urine Total 1250 ml # Voids 3 # Bowel Movements 4 General: Alert, Oriented X3, Cooperative HEENT: Atraumatic, PERRLA Neck: Supple, No JVD, No Thyromegaly Lungs: Clear to Auscultation, Normal Air Movement Heart: Regular Rate, Normal S1, Normal S2, No Murmurs Abdomen: Normal Bowel Sounds, Soft, No Tenderness, No Hepatosplenomegaly, No Masses Extremities: No Clubbing, No Cyanosis, No Edema, Normal Pulses, No Tenderness/ Swelling Skin: No Rashes, No Breakdown, No Significant Lesion Neuro: Normal Gait, Normal Speech, Strength at 5/5 X4 Ext, Normal Tone, Sensation Intact Psych/Mental Status: Mental Status NL, Mood NL Results Lab Laboratory Tests 05/05/17 05:15 A/P-Cardiology Admission Diagnosis Pneumonia CHF HTN CKD Assessment/Plan Pneumonia, improving, continue antibiotics, chest x-ray showed improvement today , awaiting for official report. Congestive heart failure, acute on chronic diastolic dysfunction- most recent Echocardiogram of January 2017 showed LVEF 55-65%; grade 2 diastolic dysfunction ; right atrium mod to severely dilated; left atrium mod to severely dilated; mild MR with mod to severely calcified annulus; mild to mod TR; AoV sclerosis; PASP 40 mmHg. Maintained on beta pedro luis. Unable to tolerate LACI-I/ARB secondary to CKD and allergy to LACI-I. Hypokalemia and hyomagnesemia due to chronic diuretic therapy, replaced, improved. Continue to monitor. 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 CKD, stage 3, worsening renal function after receiving Lasix 20 mg IV. Continue on oral Lasix and monitor as an outpatient. Anemia, probably secondary to chronic disease, continue to monitor. History of hypothyroidism, treated with thyroid replacement therapy Dementia Clinical Quality Measures DVT/VTE Risk/Contraindication: Risk Factor Score Per Nursin RFS Level Per Nursing on Admit: 4+=Very High YEHUDA ARRINGTON MD May 05, 2017 07:57
--- NOTE | 2017-05-05 08:03 | Progress Note (SOAP) ---
Subjective Time Seen by Provider: 08:00 Subjective/Events-last exam pneumonia. Hypoxia. CHF. Patient episode of PAT last night. Renal insufficiency. Dementia. Patient appears better today. Plan to discharge tomorrow Objective Exam Vital Signs Date Time Temp Pulse Resp B/P (MAP) Pulse Ox O2 Delivery O2 Flow Rate FiO2 05/05/17 07:24 98 Nasal Cannula 2.00 05/05/17 04:00 97.2 87 21 111/74 (86) 95 Nasal Cannula 2.00 05/05/17 03:24 91 05/05/17 03:19 143 05/05/17 02:22 98 Nasal Cannula 2.00 05/05/17 00:00 98.2 72 17 151/71 (97) 96 Nasal Cannula 2.00 05/04/17 21:56 98 Nasal Cannula 2.00 05/04/17 21:00 Nasal Cannula 2.00 05/04/17 16:00 97.7 73 22 166/72 (103) 100 Nasal Cannula 2.00 05/04/17 15:46 98 Nasal Cannula 2.50 05/04/17 09:30 89 Nasal Cannula 2.50 05/04/17 09:00 Nasal Cannula 2.00 I & O 05/05/17 07:00 Intake Total 1290 ml Output Total 1250 ml Balance 40 ml Capillary Refill : Less Than 3 Seconds General Appearance: No Apparent Distress, Thin HEENT: Normal ENT Inspection Neck: Full Range of Motion, Normal Inspection Respiratory: No Accessory Muscle Use, No Respiratory Distress, Other (some congestion) Cardiovascular: Regular Rate, Rhythm, No Murmur Gastrointestinal: non tender, soft Results Lab Laboratory Tests 05/05/17 05:15 Laboratory Tests 05/05/17 05:15: White Blood Count 3.3L, Red Blood Count 2.78L, Hemoglobin 8.1L, Hematocrit 26L, Mean Corpuscular Volume 92, Mean Corpuscular Hemoglobin 29, Mean Corpuscular Hemoglobin Concent 32, Red Cell Distribution Width 13.6, Platelet Count 109L, Mean Platelet Volume 9.2, Sodium Level 142, Potassium Level 3.8, Chloride Level 97L, Carbon Dioxide Level 36H, Anion Gap 9, Blood Urea Nitrogen 12, Creatinine 1.31H, Estimat Glomerular Filtration Rate 39, BUN/Creatinine Ratio 9, Glucose Level 95, Calcium Level 8.1L, Total Bilirubin 0.5, Aspartate Amino Transf (AST/ SGOT) 14, Alanine Aminotransferase (ALT/SGPT) 6, Alkaline Phosphatase 52, B- Type Natriuretic Peptide 480.6H, Total Protein 3.3L, Albumin 2.4L Microbiology 05/02/17 Blood Culture - Preliminary, Resulted No growth 05/02/17 Influenza Types A,B Antigen (FRANCIS) - Final, Complete Assessment/Plan Assessment/Plan Assess & Plan/Chief Complaint bilateral pneumonia. CHF. Hypoxemia. Renal insufficiency. Hypokalemia. Pleural effusion. Senile dementia. Patient pleasant. Hypomagnesemia. . 05/04/16. Pneumonia. Hypoxemia. Renal insufficiency better. Hypokalemia resolved. Hypomagnesemia resolved. Dementia. Patient states she's feeling better. Patient states the fluid in her legs are less. . 05/05/17. Pneumonia. CHF. PAT. Hypoxemia. Renal insufficiency Patient feeling better today. Pleural effusion Clinical Quality Measures DVT/VTE Risk/Contraindication: Risk Factor Score Per Nursin RFS Level Per Nursing on Admit: 4+=Very High PEE PINTO DO May 05, 2017 08:03
--- NOTE | 2017-05-05 08:17 | Diagnostic Imaging Report ---
EXAMINATION: PA and lateral chest at 0758 AM INDICATION: Respiratory distress The appearance of the chest has improved since 05/04/2017 as both the right midlung and the left lower lobe do seem better aerated. The central pulmonary vascularity is also less prominent. However, there is persistent opacification of the inferior half of the right lung and the inferior third of the left lung base by pneumonia/atelectasis and fluid. The heart is difficult to assess but does not appear to have changed adversely. The mediastinum is not widened. The osseous structures are intact. IMPRESSION: The appearance of the chest has improved as both lungs are better aerated and there is less pulmonary congestion. There is still considerable involvement of both lung bases by pneumonia/atelectasis and fluid, particularly the right lung base. A followup study would be recommended for continued evaluation. Dictated by: Dictated on workstation # [id number]
[2017-05-05] MEDS: FUROSEMIDE 40 MG (LASIX) TAB PO SCH (08:47)
[2017-05-05] MEDS: ATENOLOL 50 MG (TENORMIN) TAB PO SCH (08:47)
[2017-05-05] MEDS: TRIAMCINOLONE 0.5% OINT (KENALOG) 15 GM TUBE TOP SCH ×2 (08:47→21:00)
[2017-05-05] MEDS: ENOXAPARIN 30 MG/0.3 ML (LOVENOX) SYR SC SCH (14:12)
[2017-05-06 00:23] VITALS: BP 137/70
[2017-05-06] MEDS: RT-ALBUTEROL SULF 2.5 MG/3 ML PRE-MIX VIAL INH SCH ×3 (02:11→14:50)
[2017-05-06 03:45] VITALS: BP 150/65
[2017-05-06] MEDS: CATHETER FLUSH 10 ML SYR IV SCH ×2 (06:08→14:37)
[2017-05-06] MEDS: KCL 20 MEQ TAB (K-DUR) PO SCH (06:08)
[2017-05-06 06:24] LABS: HEMOGLOBIN 8.3 G/DL (11.5-16.0); RED BLOOD COUNT 2.83 10^6/uL (4.35-5.85); RED CELL DISTRIBUTION WIDTH 13.1 % (10.0-14.5); WHITE BLOOD COUNT 2.9 10^3/uL (4.3-11.0)
[2017-05-06 06:48] LABS: CALCIUM 7.9 MG/DL (8.5-10.1); CREATININE SERUM 1.24 MG/DL (0.60-1.30); POTASSIUM 3.6 MMOL/L (3.6-5.0)
--- NOTE | 2017-05-06 07:57 | Diagnostic Imaging Report ---
INDICATION: Pneumonia. COMPARISON: The study is compared to 05/05/2017. FINDINGS: There are bilateral pleural effusions, greater right than left, unchanged. Lower lobed infiltrates, right greater than left, unchanged. Heart size is stable. IMPRESSION: Bibasilar pleural parenchymal opacities, greater right than left, unchanged. Dictated by: Dictated on workstation # [id number]
[2017-05-06 08:00] VITALS: BP 168/74
--- NOTE | 2017-05-06 08:16 | Progress Note (SOAP) ---
Subjective Time Seen by Provider: 08:10 Subjective/Events-last exam patient feeling better. Patient still has some congestion in the chest. Hemoglobin 8.3 hematocrit 23 days stable from yesterday. to put on ferrous sulfate GFR 41 improved with CK the. Chest x-ray unchanged Objective Exam Vital Signs Date Time Temp Pulse Resp B/P (MAP) Pulse Ox O2 Delivery O2 Flow Rate FiO2 05/06/17 03:45 98.9 63 18 150/65 (93) 99 Nasal Cannula 2.00 05/06/17 02:11 98 Nasal Cannula 2.00 05/06/17 01:00 73 05/06/17 00:23 99.1 67 18 137/70 (92) 97 Nasal Cannula 2.00 05/05/17 21:00 Nasal Cannula 2.00 05/05/17 19:38 97 Nasal Cannula 2.00 05/05/17 19:00 98.3 71 22 161/71 (101) 97 Nasal Cannula 2.00 05/05/17 19:00 75 05/05/17 16:00 99.5 69 17 147/66 (93) 96 Nasal Cannula 2.00 05/05/17 15:53 97 Nasal Cannula 2.00 05/05/17 12:58 70 05/05/17 12:00 100.0 75 24 143/64 (90) 96 Nasal Cannula 2.00 05/05/17 09:29 22 97 05/05/17 09:00 Nasal Cannula 2.00 I & O 05/06/17 07:00 Intake Total 1190 ml Output Total 400 ml Balance 790 ml Capillary Refill : Less Than 3 Seconds General Appearance: No Apparent Distress, Thin HEENT: Normal ENT Inspection Neck: Full Range of Motion, Normal Inspection Respiratory: No Accessory Muscle Use, No Respiratory Distress, Other (loose congestion) Cardiovascular: Regular Rate, Rhythm, No Murmur Gastrointestinal: non tender, soft Results Lab Laboratory Tests 05/06/17 05:44 Laboratory Tests 05/06/17 05:44: White Blood Count 2.9L, Red Blood Count 2.83L, Hemoglobin 8.3L, Hematocrit 23L, Mean Corpuscular Volume 81, Mean Corpuscular Hemoglobin 29, Mean Corpuscular Hemoglobin Concent 36, Red Cell Distribution Width 13.1, Platelet Count 110L, Mean Platelet Volume 9.0, Sodium Level 141, Potassium Level 3.6, Chloride Level 97L, Carbon Dioxide Level 34H, Anion Gap 10, Blood Urea Nitrogen 12, Creatinine 1.24, Estimat Glomerular Filtration Rate 41, BUN/Creatinine Ratio 10, Glucose Level 86, Calcium Level 7.9L Microbiology 05/02/17 Blood Culture - Preliminary, Resulted No growth 05/02/17 Influenza Types A,B Antigen (FRANCIS) - Final, Complete Assessment/Plan Assessment/Plan Assess & Plan/Chief Complaint bilateral pneumonia. CHF. Hypoxemia. Renal insufficiency. Hypokalemia. Pleural effusion. Senile dementia. Patient pleasant. Hypomagnesemia. . 05/04/16. Pneumonia. Hypoxemia. Renal insufficiency better. Hypokalemia resolved. Hypomagnesemia resolved. Dementia. Patient states she's feeling better. Patient states the fluid in her legs are less. . 05/05/17. Pneumonia. CHF. PAT. Hypoxemia. Renal insufficiency Patient feeling better today. Pleural effusion. . 05/06/17. Pneumonia. CHF. Hypoxia that has resolved area Renal insufficiency. Dementia. Patient to be sent home on [facility]. 2 office next Clinical Quality Measures DVT/VTE Risk/Contraindication: Risk Factor Score Per Nursin RFS Level Per Nursing on Admit: 4+=Very High PEE PINTO DO May 06, 2017 08:16
[2017-05-06] MEDS: TRIAMCINOLONE 0.5% OINT (KENALOG) 15 GM TUBE TOP SCH (08:53)
[2017-05-06] MEDS: FUROSEMIDE 40 MG (LASIX) TAB PO SCH (08:53)
[2017-05-06] MEDS: ATENOLOL 50 MG (TENORMIN) TAB PO SCH (08:53)
--- NOTE | 2017-05-06 09:04 | Cardiology Progress Note ---
Subjective Date Seen by Provider: May 06, 2017 Time Seen by Provider: 09:03 Subjective/Events-last exam Patient is feeling better, breathing better, still confused Review of Systems General: No Chills, No Night Sweats, No Fatigue, No Malaise, No Appetite, No Other HEENT: No Head Aches, No Visual Changes, No Eye Pain, No Ear Pain, No Dysphasia , No Sinus Congestion, No Post Nasal Drip, No Sore Throat, No Other Pulmonary: No Dyspnea, No Cough, No Pleuritic Chest Pain, No Other Cardiovascular: No: Chest Pain, Palpitations, Orthopnea, Paroxysmal Noc. Dyspnea, Edema, Lt Headedness, Other Objective-Cardiology Exam Last Set of Vital Signs Vital Signs 05/06/17 03:45 Temp 98.9 Pulse 63 Resp 18 B/P (MAP) 150/65 (93) Pulse Ox 99 O2 Delivery Nasal Cannula O2 Flow Rate 2.00 Capillary Refill : Less Than 3 Seconds I&O Intake and Output 05/05/17 23:59 Intake Total 1340 ml Output Total 400 ml Balance 940 ml Intake Oral 1340 ml Output Urine Total 400 ml # Voids 4 # Bowel Movements 2 General: Alert, Oriented X3, Cooperative HEENT: Atraumatic, PERRLA Neck: Supple, No JVD, No Thyromegaly Lungs: Clear to Auscultation, Normal Air Movement Heart: Regular Rate, Normal S1, Normal S2, No Murmurs Abdomen: Normal Bowel Sounds, Soft, No Tenderness, No Hepatosplenomegaly, No Masses Extremities: No Clubbing, No Cyanosis, No Edema, Normal Pulses, No Tenderness/ Swelling Skin: No Rashes, No Breakdown, No Significant Lesion Neuro: Normal Gait, Normal Speech, Strength at 5/5 X4 Ext, Normal Tone, Sensation Intact Psych/Mental Status: Mental Status NL, Mood NL Results Lab Laboratory Tests 05/06/17 05:44 A/P-Cardiology Admission Diagnosis Pneumonia CHF HTN CKD Assessment/Plan Pneumonia, clinically better, managed by Dr. Castillo. Continue to monitor Congestive heart failure, acute on chronic diastolic dysfunction- most recent Echocardiogram of January 2017 showed LVEF 55-65%; grade 2 diastolic dysfunction ; right atrium mod to severely dilated; left atrium mod to severely dilated; mild MR with mod to severely calcified annulus; mild to mod TR; AoV sclerosis; PASP 40 mmHg. Maintained on beta pedro luis. Unable to tolerate LACI-I/ARB secondary to CKD and allergy to LACI-I. 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 CKD, stage 3, worsening renal function after receiving Lasix 20 mg IV. Continue on oral Lasix and monitor as an outpatient. Anemia, probably secondary to chronic disease, continue to monitor. History of hypothyroidism, treated with thyroid replacement therapy Dementia Clinical Quality Measures DVT/VTE Risk/Contraindication: Risk Factor Score Per Nursin RFS Level Per Nursing on Admit: 4+=Very High YEHUDA ARRINGTON MD May 06, 2017 09:04
[2017-05-06] MEDS ORDERED: LEVOFLOXACIN 750 MG TAB (LEVAQUIN) PO SCH (11:00)
[2017-05-06] MEDS ORDERED: LEVO500T2 PO (11:47)
[2017-05-06] MEDS ORDERED: INFLUENZA TRIvalent 2017-2018 0.5 ML/45 MCG SYR IM ONE (11:52)
[2017-05-06] MEDS: ENOXAPARIN 30 MG/0.3 ML (LOVENOX) SYR SC SCH (14:39)
[2017-05-06 16:14] VITALS: BP 168/74
--- NOTE | 2017-05-10 07:20 | Discharge Summary ---
Diagnosis/Chief Complaint Date of Admission May 02, 2017 at 07:57 Date of Discharge May 06, 2017 at 16:14 Discharge Time: 07:20 Discharge Diagnosis pneumonia. CHF. Alzheimer's disease. Hypertension. CAD. Anemia. Leukopenia. Hypokalemia. Hypomagnesemia Discharge Summary Consultations cardiology Discharge Physical Examination Allergies: Coded Allergies: cephalexin (Verified Allergy, Unknown, 02/25/17) glyburide (Verified Allergy, Unknown, 02/25/17) hydrochlorothiazide (Verified Allergy, Unknown, 02/25/17) lisinopril (Verified Allergy, Unknown, 02/25/17) metformin (Verified Allergy, Unknown, 02/25/17) rofecoxib (Verified Allergy, Unknown, 02/25/17) Vitals & I&Os Vital Signs Date Time Temp Pulse Resp B/P (MAP) Pulse Ox O2 Delivery O2 Flow Rate FiO2 05/06/17 16:14 73 22 168/74 92 Nasal Cannula 05/06/17 14:50 1.00 05/06/17 08:00 99.8 Hospital Course Labs (last 24 hrs) Laboratory Tests 05/02/17 06:35: White Blood Count 4.0L, Red Blood Count 3.45L, Hemoglobin 9.9L, Hematocrit 32L, Mean Corpuscular Volume 92, Mean Corpuscular Hemoglobin 29, Mean Corpuscular Hemoglobin Concent 31L, Red Cell Distribution Width 14.2, Platelet Count 149, Mean Platelet Volume 9.0, Neutrophils (%) (Auto) 66, Lymphocytes (%) (Auto) 19, Monocytes (%) (Auto) 11, Eosinophils (%) (Auto) 4, Basophils (%) (Auto) 0, Neutrophils # (Auto) 2.6, Lymphocytes # (Auto) 0.8L, Monocytes # (Auto) 0.4, Eosinophils # (Auto) 0.2, Basophils # (Auto) 0.0, Sodium Level 144, Potassium Level 3.3L, Chloride Level 98, Carbon Dioxide Level 37H, Anion Gap 9, Blood Urea Nitrogen 13, Creatinine 1.26, Estimat Glomerular Filtration Rate 40, BUN/ Creatinine Ratio 10, Glucose Level 92, Calcium Level 8.3L, Magnesium Level 1.7L , Total Bilirubin 0.6, Aspartate Amino Transf (AST/SGOT) 13, Alanine Aminotransferase (ALT/SGPT) < 6, Alkaline Phosphatase 74, C-Reactive Protein High Sensitivity 1.45H, B-Type Natriuretic Peptide 320.4H, Total Protein 5.4L, Albumin 2.9L, Thyroid Stimulating Hormone (TSH) 0.45, Free Thyroxine 1.11, Valproic Acid (Depakene) Level 15.2L 05/02/17 07:55: Lactic Acid Level 0.61 05/03/17 06:35: White Blood Count 3.0L, Red Blood Count 2.85L, Hemoglobin 8.2L, Hematocrit 26L, Mean Corpuscular Volume 92, Mean Corpuscular Hemoglobin 29, Mean Corpuscular Hemoglobin Concent 31L, Red Cell Distribution Width 13.7, Platelet Count 123L, Mean Platelet Volume 9.0, Neutrophils (%) (Auto) 61, Lymphocytes (%) (Auto) 24, Monocytes (%) (Auto) 12, Eosinophils (%) (Auto) 3, Basophils (%) (Auto) 0, Neutrophils # (Auto) 1.9, Lymphocytes # (Auto) 0.7L, Monocytes # (Auto) 0.4, Eosinophils # (Auto) 0.1, Basophils # (Auto) 0.0, Sodium Level 143, Potassium Level 3.2L, Chloride Level 98, Carbon Dioxide Level 38H, Anion Gap 7, Blood Urea Nitrogen 12, Creatinine 1.20, Estimat Glomerular Filtration Rate 43, BUN/ Creatinine Ratio 10, Glucose Level 91, Calcium Level 8.2L, Magnesium Level 1.5L , B-Type Natriuretic Peptide 334.4H, Thyroid Stimulating Hormone (TSH) 0.38 05/03/17 15:30: Stool Occult Blood Immunoassay NEGATIVE 05/04/17 05:36: White Blood Count 3.3L, Red Blood Count 3.17L, Hemoglobin 9.1L, Hematocrit 29L, Mean Corpuscular Volume 92, Mean Corpuscular Hemoglobin 29, Mean Corpuscular Hemoglobin Concent 31L, Red Cell Distribution Width 13.7, Platelet Count 124L, Mean Platelet Volume 9.3, Sodium Level 144, Potassium Level 3.8, Chloride Level 98, Carbon Dioxide Level 34H, Anion Gap 12, Blood Urea Nitrogen 11, Creatinine 1.22, Estimat Glomerular Filtration Rate 42, BUN/Creatinine Ratio 9, Glucose Level 100, Calcium Level 8.4L, Magnesium Level 2.1 05/05/17 05:15: White Blood Count 3.3L, Red Blood Count 2.78L, Hemoglobin 8.1L, Hematocrit 26L, Mean Corpuscular Volume 92, Mean Corpuscular Hemoglobin 29, Mean Corpuscular Hemoglobin Concent 32, Red Cell Distribution Width 13.6, Platelet Count 109L, Mean Platelet Volume 9.2, Sodium Level 142, Potassium Level 3.8, Chloride Level 97L, Carbon Dioxide Level 36H, Anion Gap 9, Blood Urea Nitrogen 12, Creatinine 1.31H, Estimat Glomerular Filtration Rate 39, BUN/Creatinine Ratio 9, Glucose Level 95, Calcium Level 8.1L, Total Bilirubin 0.5, Aspartate Amino Transf (AST/ SGOT) 14, Alanine Aminotransferase (ALT/SGPT) 6, Alkaline Phosphatase 52, B- Type Natriuretic Peptide 480.6H, Total Protein 3.3L, Albumin 2.4L 05/06/17 05:44: White Blood Count 2.9L, Red Blood Count 2.83L, Hemoglobin 8.3L, Hematocrit 23L, Mean Corpuscular Volume 81, Mean Corpuscular Hemoglobin 29, Mean Corpuscular Hemoglobin Concent 36, Red Cell Distribution Width 13.1, Platelet Count 110L, Mean Platelet Volume 9.0, Sodium Level 141, Potassium Level 3.6, Chloride Level 97L, Carbon Dioxide Level 34H, Anion Gap 10, Blood Urea Nitrogen 12, Creatinine 1.24, Estimat Glomerular Filtration Rate 41, BUN/Creatinine Ratio 10, Glucose Level 86, Calcium Level 7.9L Microbiology 05/02/17 Blood Culture - Final, Complete No growth 05/02/17 Influenza Types A,B Antigen (FRANCIS) - Final, Complete Laboratory Tests 05/02/17 06:35 05/03/17 06:35 05/04/17 05:36 05/05/17 05:15 05/06/17 05:44 Pending Labs Microbiology Date/Time Source Procedure Growth Status 05/02/17 08:00 Peripheral Lt Ac Blood Culture - Final No growth Complete 05/02/17 07:55 Peripheral Iv/Heplock Blood Culture - Preliminary Corynebacterium Species Resulted 05/02/17 07:42 Nasopharynx Influenza Types A,B Antigen (FRANCIS) - Final Complete Laboratory Tests 05/02/17 06:35: White Blood Count 4.0, Red Blood Count 3.45, Hemoglobin 9.9, Hematocrit 32, Mean Corpuscular Volume 92, Mean Corpuscular Hemoglobin 29, Mean Corpuscular Hemoglobin Concent 31, Red Cell Distribution Width 14.2, Platelet Count 149, Mean Platelet Volume 9.0, Neutrophils (%) (Auto) 66, Lymphocytes (%) (Auto) 19, Monocytes (%) (Auto) 11, Eosinophils (%) (Auto) 4, Basophils (%) (Auto) 0, Neutrophils # (Auto) 2.6, Lymphocytes # (Auto) 0.8, Monocytes # (Auto) 0.4, Eosinophils # (Auto) 0.2, Basophils # (Auto) 0.0, Sodium Level 144, Potassium Level 3.3, Chloride Level 98, Carbon Dioxide Level 37, Anion Gap 9, Blood Urea Nitrogen 13, Creatinine 1.26, Estimat Glomerular Filtration Rate 40, BUN/ Creatinine Ratio 10, Glucose Level 92, Calcium Level 8.3, Magnesium Level 1.7, Total Bilirubin 0.6, Aspartate Amino Transf (AST/SGOT) 13, Alanine Aminotransferase (ALT/SGPT) < 6, Alkaline Phosphatase 74, C-Reactive Protein High Sensitivity 1.45, B-Type Natriuretic Peptide 320.4, Total Protein 5.4, Albumin 2.9, Thyroid Stimulating Hormone (TSH) 0.45, Free Thyroxine 1.11, Valproic Acid (Depakene) Level 15.2 05/02/17 07:55: Lactic Acid Level 0.61 05/03/17 06:35: White Blood Count 3.0, Red Blood Count 2.85, Hemoglobin 8.2, Hematocrit 26, Mean Corpuscular Volume 92, Mean Corpuscular Hemoglobin 29, Mean Corpuscular Hemoglobin Concent 31, Red Cell Distribution Width 13.7, Platelet Count 123, Mean Platelet Volume 9.0, Neutrophils (%) (Auto) 61, Lymphocytes (%) (Auto) 24, Monocytes (%) (Auto) 12, Eosinophils (%) (Auto) 3, Basophils (%) (Auto) 0, Neutrophils # (Auto) 1.9, Lymphocytes # (Auto) 0.7, Monocytes # (Auto) 0.4, Eosinophils # (Auto) 0.1, Basophils # (Auto) 0.0, Sodium Level 143, Potassium Level 3.2, Chloride Level 98, Carbon Dioxide Level 38, Anion Gap 7, Blood Urea Nitrogen 12, Creatinine 1.20, Estimat Glomerular Filtration Rate 43, BUN/ Creatinine Ratio 10, Glucose Level 91, Calcium Level 8.2, Magnesium Level 1.5, B -Type Natriuretic Peptide 334.4, Thyroid Stimulating Hormone (TSH) 0.38 05/03/17 15:30: Stool Occult Blood Immunoassay NEGATIVE 05/04/17 05:36: White Blood Count 3.3, Red Blood Count 3.17, Hemoglobin 9.1, Hematocrit 29, Mean Corpuscular Volume 92, Mean Corpuscular Hemoglobin 29, Mean Corpuscular Hemoglobin Concent 31, Red Cell Distribution Width 13.7, Platelet Count 124, Mean Platelet Volume 9.3, Sodium Level 144, Potassium Level 3.8, Chloride Level 98, Carbon Dioxide Level 34, Anion Gap 12, Blood Urea Nitrogen 11, Creatinine 1.22, Estimat Glomerular Filtration Rate 42, BUN/Creatinine Ratio 9, Glucose Level 100, Calcium Level 8.4, Magnesium Level 2.1 05/05/17 05:15: White Blood Count 3.3, Red Blood Count 2.78, Hemoglobin 8.1, Hematocrit 26, Mean Corpuscular Volume 92, Mean Corpuscular Hemoglobin 29, Mean Corpuscular Hemoglobin Concent 32, Red Cell Distribution Width 13.6, Platelet Count 109, Mean Platelet Volume 9.2, Sodium Level 142, Potassium Level 3.8, Chloride Level 97, Carbon Dioxide Level 36, Anion Gap 9, Blood Urea Nitrogen 12, Creatinine 1.31, Estimat Glomerular Filtration Rate 39, BUN/Creatinine Ratio 9, Glucose Level 95, Calcium Level 8.1, Total Bilirubin 0.5, Aspartate Amino Transf (AST/ SGOT) 14, Alanine Aminotransferase (ALT/SGPT) 6, Alkaline Phosphatase 52, B- Type Natriuretic Peptide 480.6, Total Protein 3.3, Albumin 2.4 05/06/17 05:44: White Blood Count 2.9, Red Blood Count 2.83, Hemoglobin 8.3, Hematocrit 23, Mean Corpuscular Volume 81, Mean Corpuscular Hemoglobin 29, Mean Corpuscular Hemoglobin Concent 36, Red Cell Distribution Width 13.1, Platelet Count 110, Mean Platelet Volume 9.0, Sodium Level 141, Potassium Level 3.6, Chloride Level 97, Carbon Dioxide Level 34, Anion Gap 10, Blood Urea Nitrogen 12, Creatinine 1.24, Estimat Glomerular Filtration Rate 41, BUN/Creatinine Ratio 10, Glucose Level 86, Calcium Level 7.9 Discussion & Recommendations patient discharged back to alf. Patient doing much better. Discharge Home Medications: Active Scripts Active Levaquin (Levofloxacin) 500 Mg Tablet 500 Mg PO DAILY Reported Memantine HCl 10 Mg Tablet 10 Mg PO BID Lactulose 20 Gm/30 Ml Solution 30 Ml PO DAILY PRN Feosol (Ferrous Sulfate) 325 Mg Tablet 325 Mg PO DAILY Benadryl Allergy (Diphenhydramine HCl) 25 Mg Tablet 25 Mg PO Q8H PRN Risperidone Odt (Risperidone) 0.25 Mg Tab.rapdis 0.25 Mg PO DAILY Tylenol Extra Strength (Acetaminophen) 500 Mg Tablet 500 Mg PO Q6H PRN Trazodone HCl 50 Mg Tablet 50 Mg PO HS Simvastatin 10 Mg Tablet 20 Mg PO HS TAKES 2 (10MG) TABLETS Saline Nasal Remus (Sodium Chloride) 30 Ml Remus 2 Sprays NSEACH Q8H PRN Risperidone Odt (Risperidone) 0.5 Mg Tab.rapdis 0.5 Mg PO 1400 Potassium Chloride 20 Meq Tab.er.prt 20 Meq PO DAILY Ocuvite with Lutein Tablet (Vit A,C & E/Lutein/Minerals) 1 Each Tablet 1 Tab PO DAILY Multivitamins with Minerals (Multivitamin with Minerals) 1 Each Tablet 1 Tab PO DAILY Melatonin 3 Mg Tablet 3 Mg PO HS Imodium A-D (Loperamide HCl) 2 Mg Tablet PO UD PRN GIVE 2 TABS AFTER 1ST LOOSE STOOL, THEN 1 TAB AFTER SUBSEQUENT LOOSE STOOLS, MAX 4 TABS IN 24H Furosemide 40 Mg Tablet 40 Mg PO DAILY Exelon (Rivastigmine) 9.5 Mg Patch 9.5 Mg TD DAILY Iprat-Albut 0.5-3(2.5) mg/3 ml (Ipratropium/Albuterol Sulfate) 3 Ml Ampul.neb 3 Ml NEB QID Depakote Sprinkle (Divalproex Sodium) 125 Mg Cap 125 Mg PO 1400 Citalopram HBr (Citalopram Hydrobromide) 10 Mg Tablet 10 Mg PO DAILY Atenolol 50 Mg Tablet 50 Mg PO DAILY NOTIFY PCP IF BP >160/90 OR 100/60. HOLD BP MEDICATION IF BP <110/60 Instructions to patient/family Please see electronic discharge instructions given to patient. Clinical Quality Measures DVT/VTE Risk/Contraindication: Risk Factor Score Per Nursin RFS Level Per Nursing on Admit: 4+=Very High PEE PINTO DO May 10, 2017 07:20
== END 2017-05-06 16:14 | DRG 291 ==
LOC: EDUNIT# 06:26 → ER 06:27 → 4TH 07:57
PROVIDERS: ADMIT Internal Medicine; ATTEND Internal Medicine
DX: I13.0 Hypertensive heart and chronic kidney disease with heart failure and stage 1 through stage 4 chronic kidney disease, or unspecified chronic kidney disease (principal); I50.33 Acute on chronic diastolic (congestive) heart failure; N18.3 Chronic kidney disease, stage 3 (moderate); J18.9 Pneumonia, unspecified organism; R09.02 Hypoxemia; I25.10 Atherosclerotic heart disease of native coronary artery without angina pectoris; E11.9 Type 2 diabetes mellitus without complications; Z66 Do not resuscitate; G30.9 Alzheimer's disease, unspecified; F02.80 Dementia in other diseases classified elsewhere, unspecified severity, without behavioral disturbance, psychotic disturbance, mood disturbance, and anxiety; I08.3 Combined rheumatic disorders of mitral, aortic and tricuspid valves; I87.8 Other specified disorders of veins; E78.00 Pure hypercholesterolemia, unspecified; F32.9 Major depressive disorder, single episode, unspecified; G47.9 Sleep disorder, unspecified; R47.02 Dysphasia; E03.9 Hypothyroidism, unspecified; D63.8 Anemia in other chronic diseases classified elsewhere; J30.2 Other seasonal allergic rhinitis; M19.91 Primary osteoarthritis, unspecified site; M25.511 Pain in right shoulder; R53.1 Weakness; E87.6 Hypokalemia; T50.1X5A Adverse effect of loop [high-ceiling] diuretics, initial encounter
CPT/HCPCS: 36415; 71045; 71046; 80048; 80053; 80164; 82274; 83605; 83735; 83880; 84439; 84443; 85025; 85027; 86141; 87040; 87804; 93005; 93041; 94640; 94664; 94760; 96374; 96375

== ENCOUNTER → 2017-06-24 | Outpatient (CLI) | payer MEDICARE ==
[~2017-06-24] MED LIST changes: +AZIT250T12 PO; +AZIT500T2 PO; +DIPH25TA65 PO; +FERR-65 PO; -FERR-74 PO; +FERR325T18 PO; +MEMA10TA22 PO
--- NOTE | 2017-06-24 14:08 | Diagnostic Imaging Report ---
INDICATION: Left leg pain. TIME OF EXAMINATION: 02:07 p.m. FINDINGS: AP and lateral views of the left tibia and fibula were obtained. Alignment at the knee and ankle is normal. There is generalized demineralization noted. There appears to be soft tissue swelling about the ankle. No fractures are identified. Vascular calcifications are present. There is a large plantar calcaneal spur. IMPRESSION: Chronic changes. No acute bony abnormality is detected. Dictated by: Dictated on workstation # [id number]
== END ==
LOC: RAD 13:30
PROVIDERS: ATTEND Family Medicine
DX: S80.12XA Contusion of left lower leg, initial encounter (principal)
CPT/HCPCS: 73590

== ENCOUNTER → 2017-07-05 | Outpatient (CLI) | payer MEDICARE | LOC: WOUNDCARE 09:03 | PROVIDERS: ATTEND Nurse Practitioner | DX: L97.222 Non-pressure chronic ulcer of left calf with fat layer exposed (principal); I89.0 Lymphedema, not elsewhere classified; I87.2 Venous insufficiency (chronic) (peripheral); F02.81 Dementia in other diseases classified elsewhere, unspecified severity, with behavioral disturbance ==